=== PATIENT | female | born 1970 | race American Indian/Alaskan Native ===

== ENCOUNTER 2019-01-16 11:40 | Outpatient (REF) | payer SELFPAY ==
--- NOTE | 2019-01-16 10:45 | PAPFT_PTH ---
PATIENT: Swathi Patten LOC: [facility] U#:[id number] AGE/SX: 48/F ROOM: RE01/16/[address]: Bayron Jay : 1970 BED: DIS: 01/16/2019 SPEC #: [id number] RECD: 01/16/19 18:13 STATUS: KEYLA REQ #: [id number] CAL: 01/16/19 10:[address]: Bayron Jay DEPT: [facility] Cytology RECD BY: Keri Hernandez Tissues: 1 - CX/ENDOCX FOR PAP SMEARS Procedures: PAP THIN PREP/UVM Screening HPV DNA PROBE Comments: [id number] (CHLAMYDIA/GC)
[2019-01-17 13:43] LABS: Chlamydia Result Negative; GC Result Negative; Specimen Description SEE COMMENTS
== END 2019-01-16 12:00 ==
LOC: NCHCN 11:40
PROVIDERS: PCP Nurse Practitioner Family; Visit Provider Nurse Practitioner Family
DX: Z11.3 Encounter for screening for infections with a predominantly sexual mode of transmission (principal); Z12.4 Encounter for screening for malignant neoplasm of cervix; Z11.51 Encounter for screening for human papillomavirus (HPV); Z00.00 Encounter for general adult medical examination without abnormal findings
CPT/HCPCS: 87491; 87591; 88142; 87624

== ENCOUNTER 2019-06-01 17:31 | Emergency (ER) | payer SELFPAY ==
[2019-06-01 17:35] VITALS: BP 154/98; PULSE 93; RESP 18; TEMP 36.5; O2SAT 97
[2019-06-01 17:48] VITALS: BP 154/98; PULSE 93; RESP 18; TEMP 36.5; O2SAT 97
--- NOTE | 2019-06-03 23:47 | ED.GENADUL_ITS ---
Discharge Plan Disposition Patient Disposition: HOME Condition: Good Discharge Details Chief Complaint: EarProblem Clinical Impression: Ear pain Primary Care Provider: Bayron Jay ED Provider: Marion Dave Home Meds and New Rx's Prescriptions: New valacyclovir [Valtrex] 1 gram tablet 1,000 mg PO TID Qty: 21 RF: 0 meclizine 25 mg tablet 25 mg PO TID PRN (Reason: dizziness) Qty: 10 RF: 0 No Action lisinopril 5 MG tablet 20 mg PO DAILY RF: 0 atorvastatin [Lipitor] 10 mg Tablet 10 mg PO DAILY RF: 0 Discharge Instructions Instructions: Earache (ED) Additional Instructions: Drink plenty of fluids. Use antiviral medications as prescribed. Tylenol for soreness if needed. Prompt follow-up with your primary care doctor or ENT for reevaluation of concern of possible developing shingles as discussed. Use meclizine if needed if dizziness returns. Drink plenty of water with this medication will cause drowsiness. Have reevaluation if dizziness returns as discussed or for any difficulty walking. Rest activities as tolerated. Return for any worsening, concerns or alarming symptoms sooner if needed Discharge Data Discharge Date/Time-TO BE ENTERED AT DEPARTURE: 06/01/19 18:09 Medical Decision Making This is a 48-year-old patient presenting for concerns of right ear pain. Patient does report a history of shingles x2 once in her right eye once in her left ear. Patient reports in the last 24 hours onset of right ear pain which is been persistent somewhat constant associated with tingling of the scalp superior to the right ear. Patient denies any obvious rash at this time. Denies any hearing change. Denies any recent upper respiratory. Denies any ill feeling whatsoever. Patient is concerned as the sensation is somewhat similar to shingles she is previously experienced early on. On exam patient has no obvious abnormalities. Given patient's medical history and experience with shingles I do not feel is unreasonable to prescribe a prescription for Valtrex, encourage close follow-up and reevaluation of her ear. Patient agrees with plan of care. I did offer external ear antibiotic treatment but she declines at this time. I have encouraged patient to stop scratching her ear canal with her fingernails this could result wounds or infection of the ear. Patient reports her understanding. Conservative treatments discussed. Patient will schedule this plan of care. The patient was stable and requested discharge. Prior to discharge, my usual and customary return precautions were reviewed with the patient - this included follow-up instructions and reasons to return to the Emergency Department if conditions worsens, does not improve as expected, or other new concerns arise. HPI General Date/Time Provider Initiated Documentation: 06/01/19 17:37 . HPI Narrative: Patient presents for onset of right ear pain. Patient reports constant pain in the right ear. Patient reports onset of tingling in the right scalp above the right ear. Patient reports that she has a history of shingles and this feels somewhat similar. Patient denies any significant nasal congestion, sore throat or cough. Patient denies hearing change. Patient reports pain did wake her from sleep. Patient denies fevers or chills. No apparent rash at this time. Onset of symptoms in the last 24 hours. Patient denies any injury or trauma to her ear. No drainage from the ear. No ill feeling or malaise. Again patient is primarily concerned is developing shingles. She has had shingles in the right eye as well as another episode of the left ear. Related Data Home Medications Medication Instructions Recorded Confirmed lisinopril 20 mg PO DAILY 11/17/15 06/01/19 atorvastatin [Lipitor] 10 mg PO DAILY 06/01/19 06/01/19 meclizine 25 mg PO TID PRN #10 tab 06/01/19 valacyclovir [Valtrex] 1,000 mg PO TID #21 tab 06/01/19 Previous Rx's Medication Instructions Recorded meclizine 25 mg PO TID PRN #10 tab 06/01/19 valacyclovir [Valtrex] 1,000 mg PO TID #21 tab 06/01/19 Allergies Allergy/AdvReac Type Severity Reaction Status Date / Time cefazolin sodium [From [facility]] Allergy Severe Anaphylaxsi Verified 02/27/17 08:34 s hay fever Allergy Mild Uncoded 02/27/17 08:34 General Stated Complaint: EarProblem LISA: 4 Review of Systems All systems reviewed & are unremarkable except as noted in HPI and below Constitutional Constitutional: Denies chills, Denies fatigue, Denies fever(s), Denies headache(s) and Denies malaise Eyes Eyes: Denies blurry vision, Denies diplopia, Denies loss of peripheral vision, Denies loss of vision, Denies eye pain and Denies photophobia ENT Ears, Nose, Mouth, and Throat: Denies vertigo, Denies dizziness, Denies ear discharge, Reports otalgia, Denies headache(s), Denies nasal obstruction and Denies sore throat Respiratory Respiratory: Denies cough Neurologic Neurologic: Denies vertigo, Denies dizziness, Denies headache(s) and Denies loss of vision Endocrine Endocrine: Denies fatigue [facility] Social History Smoking/Tobacco Use Status: Current every day Alcohol Intake: never Drug use: Never Substance use type: does not use Do you feel safe at home: Yes Do you feel safe in your relationship?: Yes Exam Narrative Exam Narrative: CONST: Healthy appearing patient, in no acute distress. Well hydrated. Alert and oriented. HENMT: Head nomocephalic, normal to inspection. Atraumatic. Hearing grossly normal. TMs appear normal bilaterally. Very mild erythema to the distal inferior aspect of external canal, likely due to mechanical irritation as iron lemus has long fingernails and has been scratching the area. No drainage. No pain with tragal tug. No mastoid tenderness. EYES: General normal appearance. Alignment normal. Eyelids normal. Conjunctiva normal. NECK: Normal visual inspection. FROM. Trachea midline. No Midline tenderness. No cervical lymphadenopathy SKIN: Normal. Dry. No rashes. NEURO: Alert and awake. Speech clear. PSYCH: Normal affect. Cooperative. Course Vital Signs Vital signs: Vital Signs Temperature 36.5 C 06/01/19 17:35 Pulse 93 H 06/01/19 17:35 Respiratory Rate 18 06/01/19 17:35 Blood Pressure 154/98 H 06/01/19 17:35 Pulse Oximetry 97 06/01/19 17:35 Temperature 36.5 C 06/01/19 17:48 Temperature Source Temporal Artery Scan 06/01/19 17:35 Pulse 93 H 06/01/19 17:48 Respiratory Rate 18 06/01/19 17:48 Respiratory Effort Non-Labored 06/01/19 17:40 Blood Pressure 154/98 H 06/01/19 17:48 Blood Pressure Position Sitting 06/01/19 17:35 Pulse Oximetry 97 06/01/19 17:48 Oxygen Delivery Method Room Air 06/01/19 17:35 Oxygen Flow Rate 0 06/01/19 17:35 Pain Level 7 06/01/19 17:48
== END 2019-06-01 18:09 | disposition home or self-care (01) ==
PROVIDERS: Emergency Provider Physician Assistant; PCP Nurse Practitioner Family
DX: H92.01 Otalgia, right ear (principal); Z86.19 Personal history of other infectious and parasitic diseases
CPT/HCPCS: 99283

== ENCOUNTER 2019-06-06 07:06 | Outpatient (CLI) | payer SELFPAY ==
[2019-06-06 07:43] LABS: HCT 43.5 % (36.0-46.0); HGB 15.2 g/dL (12.0-15.5); Mean Corp. HGB Concentration 34.9 g/dL (32.0-36.0); Mean Corpuscular Hemoglobin 30.6 pg (27.0-33.0); Mean Corpuscular Volume 87.5 fL (80-95); Mean Platelet Volume 9.9 fL (8.0-11.0); Platelet Count 314 x1000/uL (130-400); RBC 4.97 m/cumm (4.00-5.20); RBC Distribution Width 12.3 % (11.7-14.6); White Blood Cell Count 11.25 k/cumm (4.4-10.8)
[2019-06-06 07:57] LABS: ALT 31 U/L (14-59); AST 13 U/L (15-37); Albumin 3.7 g/dL (3.4-5.0); Alkaline Phosphatase 75 U/L (46-116); Anion Gap 10.4 mmol/L (3-11); BUN 11 mg/dL (7-18); Bilirubin, Total 0.4 mg/dL (0.2-1.0); CO2 23.6 mmol/L (21.0-32.0); CREATININE 0.82 mg/dL (0.55-1.02); Calcium 8.8 mg/dL (8.5-10.1); Calculated LDL 133 mg/dL; Chloride 104 mmol/L (98-107); Cholesterol 207 mg/dL (<200); Glucose 127 mg/dL (74-106); HDL Cholesterol 34 mg/dL (40-60); Potassium 4.5 mmol/L (3.5-5.1); Sodium 138 mmol/L (136-145); Total Protein 7.2 g/dL (6.4-8.2); Triglyceride 202 mg/dL (<150)
== END 2019-06-06 07:26 ==
PROVIDERS: PCP Nurse Practitioner Family; Visit Provider Nurse Practitioner Family
DX: Z00.00 Encounter for general adult medical examination without abnormal findings (principal); I10 Essential (primary) hypertension; Z83.3 Family history of diabetes mellitus
CPT/HCPCS: 36415; 80053; 80061; 85027

== ENCOUNTER 2019-07-26 01:12 | Outpatient (CLI) | payer SELFPAY ==
--- NOTE | 2019-07-26 | DI.MAMMO_ITS ---
EXAM: MAMMO SCREENING CLINICAL HISTORY: SCREENING, [facility], Z00.00 TECHNIQUE: Mammograms were interpreted according to the usual protocol including computer analysis w [employer] CAD system, tomosynthesis and C-view imaging. COMPARISON: 2012 FINDINGS: The breasts are composed of scattered fibroglandular densities, Breast Density category B. No suspicious masses or suspicious microcalcifications are seen. No skin thickening or abnormal axillary lymph nodes are seen. There has been no significant change from prior exams. IMPRESSION: BIRADS Category 1, negative mammogram. Yearly screening mammography is recommended.
== END 2019-07-26 01:32 ==
PROVIDERS: PCP Nurse Practitioner Family; Visit Provider Nurse Practitioner Family
DX: Z12.31 Encounter for screening mammogram for malignant neoplasm of breast (principal)
CPT/HCPCS: 77063; 77067

== ENCOUNTER 2020-01-19 06:14 | Day surgery (SDC) | payer BC, SELFPAY ==
[2020-01-19 06:22] VITALS: BP 121/94; PULSE 83; RESP 16; TEMP 37.1; O2SAT 96
[2020-01-19] MEDS: Lactated Ringers 1,000 ML 80 ML IV (06:45)
--- NOTE | 2020-01-19 07:15 | HPE_ITS ---
Date of service: 01/19/20 Time of Service: 07:16 Assessment and Plan Assessment and plan (1) Colon cancer screening: Status: Acute Assessment and plan: I advised colonoscopy. The procedure was described including the risks of perforation with need for surgery or bleeding. Prep instructions discussed. Patient agrees to proceed. History of Present Illness Narrative: 49 y/o female with history of HTN presents for her first colonoscopy screening pre-op. She denies a family history of colon cancer. Of note she reports that both her brother and mother had polyps. She denies any changes in bowel habits including bloody or black tarry stools, abdominal pain, diarrhea or constipation. She denies constitutional symptoms. Denies use of marijuana or any other recreational or illegal drugs. She denies chest pain, palpitations, dyspnea or dyspnea with exertion. She occasionally walks her dog. 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 She denies prior history or family history of adverse reactions or complications with anesthesia. Review of Systems All systems reviewed & are unremarkable except as noted in HPI and below PFSH Medical History Alcohol abuse, in remission (Acute) in remission for 13 years Benign essential hypertension (Acute) Cocaine abuse in remission (Acute) in remission for 13 years Family history of chronic ischemic heart disease (Acute) Family history of diabetes mellitus (Acute) History of hepatitis (Acute) Hep C. pt. states she has been treated in 2004, states she did the Interferon treatment. Onychomycosis (Acute) Tobacco use disorder (Acute) Surgical History History of appendectomy (Chronic) Hx of section (Chronic) x2 Hx of cholecystectomy (Chronic) Social History Smoking/Tobacco Use Status: Current every day Tobacco Type: cigarettes Quit status: quit date established Alcohol Intake: former Drug use: Current Sobriety Substance use type: former substance user and crack/cocaine Details: 13 years Do you feel safe at home: Yes Do you feel safe in your relationship?: Yes Meds Home Medications and Allergies Home Medications Medication Instructions Recorded Confirmed Type meclizine 25 mg PO TID PRN #10 tab 06/01/19 01/19/20 Rx albuterol sulfate 90 mcg/actuation 2 puff IH Q6H PRN 06/27/19 01/19/20 History aerosol inhaler lisinopril 20 mg tablet 20 mg PO DAILY 06/27/19 01/19/20 History simvastatin 20 mg tablet 20 mg PO DAILY 06/27/19 01/19/20 History varenicline 1 mg tablet 1 mg PO BID 06/27/19 01/19/20 History bisacodyl 5 mg tablet,delayed 5 mg PO ONCE #4 tab 08/03/19 01/19/20 Rx release nicotine 14 mg/24 hr daily 1 patch TD DAILY 08/03/19 01/19/20 History transdermal patch polyethylene glycol 3350 17 238 g PO ONCE #238 gm 08/03/19 01/19/20 Rx gram/dose oral powder Allergies Allergy/AdvReac Type Severity Reaction Status Date / Time cefazolin sodium [From [facility]] Allergy Severe Anaphylaxsi Verified 01/16/20 14:10 s codeine Allergy Unknown unknown Verified 01/16/20 14:10 hay fever Allergy Mild Uncoded 01/16/20 14:10 Exam Narrative Exam Narrative: Alert, appears well Lungs CTA Heart RRR Results Last Vital Signs Temp 98.8 F 01/19/20 06:22 Pulse 83 01/19/20 06:22 Resp 16 01/19/20 06:22 BP 121/94 H 01/19/20 06:22 Pulse Ox 96 01/19/20 06:22 COVID-19 Screening Have you,or household,traveled outside [place] in last 14 days?: No Had IN PERSON contact w/suspected or confirmed C-19 person: No
--- NOTE | 2020-01-19 07:19 | W.PM.DSUDISC ---
Discharge Plan Disposition Patient Disposition: HOME Condition: Good Discharge Details Reason For Visit: Colonoscopy Attending Provider: Gabrielle Chakraborty Primary Care Provider: Bayron Jay Home Meds and New Rx's Prescriptions: Continued nicotine 14 mg/24 hr patch 24 hour 1 patch TD DAILY RF: 0 Chantix 1 mg tablet 1 mg PO BID RF: 0 simvastatin 20 mg tablet 20 mg PO DAILY RF: 0 albuterol sulfate [ProAir HFA] 90 mcg/actuation HFA aerosol inhaler 2 puff IH Q6H PRNRF: 0 lisinopril 20 mg tablet 20 mg PO DAILY RF: 0 meclizine 25 mg tablet 25 mg PO TID PRN (Reason: dizziness) Qty: 10 RF: 0 Discontinued polyethylene glycol 3350 17 gram/dose powder 238 g PO ONCE Qty: 238 RF: 0 bisacodyl [Dulcolax (bisacodyl)] 5 mg tablet,delayed release (DR/EC) 5 mg PO ONCE Qty: 4 RF: 0 Discharge Instructions Additional Instructions: Findings: Your colonoscopy was normal. Follow up: Plan for routine screening colonoscopy in 10 years or sooner if symptoms arise. Please call if you develop: fevers >101.5 Nausea or Vomiting Abdominal pain that is not transient DAY SURGERY UNIT POST COLONOSCOPY INSTRUCTIONS 1. Because there will be medication in your system for the next 24 hours, you may feel a little sleepy. Your coordination will be affected. Therefore: a. Do not drive or operate dangerous equipment for 24 hours. b. Do not drink alcohol beverages for 24 hours (not even beer). c. Plan to go home and rest for the day. 2. Generally there are no restrictions on your activity after a day or so has gone by, but you may feel a bit fatigued for a few days. 3 After you arrive home you may have a light meal and return to a normal diet as you can tolerate it without feeling sick to your stomach. 4. After surgery, you may feel pain or discomfort. This should be only transient, but if it persists please contact your doctor. 5. If there are any questions regarding the findings of your procedure, please feel free to contact your doctor. 6. If you are unable to contact your doctor with a problem, contact the hospital at [phone]. 7. Continue all your regular medications unless directed otherwise. I understand the above instructions and have no questions. Signature of Patient or Responsible Adult Escort Date/Time Name of Responsible Adult Escort Signature of Nurse Date/Time Activity:: Activity as Tolerated Diet:: As Tolerated Discharge Orders Discharge Orders: Discharge Order (Routine); Ordered 01/19/20 Ordered By: Gabrielle Chakraborty DS: Diagnosis Discharge Diagnosis (1) Colon cancer screening: Status: Acute
--- NOTE | 2020-01-19 07:59 | W.COLOREPORT ---
Date of service: 01/19/20 Time of Service: 07:59 Colonoscopy Report Date of procedure: 01/19/20 Pre-op diagnosis general: Screening Post-op diagnosis procedure note: other (Normal colon) Procedure: Colonoscopy Surgeon: Gabrielle Chakraborty Anesthesia proc note operative: MAC Indications: This 49 year old woman presents for her first screening colonoscopy. No FH colon cancer or symptoms. Procedure Description: The patient was placed in the left Babin position. Propofol was titrated to sedation. Digital rectal examination revealed no abnormalities. The scope was advanced to the cecum without difficulty. The ileocecal valve and appendiceal orifice were clearly identified. The prep was good. The scope was slowly withdrawn over the course of greater than 6 minutes with no abnormalities seen in the ascending, transverse, descending, sigmoid colon or rectum including on retroflexed view. The patient tolerated the procedure well and was stable to recovery. Plan for routine screening colonoscopy in 10 years or sooner if symptoms indicate.
[2020-01-19 08:19] VITALS: BP 106/46; PULSE 71; RESP 16; TEMP 36.1; O2SAT 97
== END 2020-01-19 08:45 | disposition home or self-care (01) ==
PROVIDERS: PCP Nurse Practitioner Family; Visit Provider Surgery
PROC: 0DJD8ZZ Inspection of Lower Intestinal Tract, Via Natural or Artificial Opening Endoscopic (ICD-10-PCS; CPT 45378; principal; 2020-01-19 07:30)
DX: Z12.11 Encounter for screening for malignant neoplasm of colon (principal)
CPT/HCPCS: 45378; NC

== ENCOUNTER 2021-02-04 16:13 | Outpatient (REF) | payer BC, SELFPAY ==
[2021-02-04 20:10] LABS: HCT 41.5 % (36.0-46.0); HGB 14.3 g/dL (11.2-15.7); MCH 29.6 pg (27.0-33.0); MCHC 34.5 % (32.0-36.0); MCV 85.9 fL (80-95); MPV 10.3 fL (8.0-11.0); Platelet Count 339 10^3/uL (130-400); RBC 4.83 10^6/uL (3.93-5.22); RDW 11.8 % (11.7-14.6); RDW-SD 37.1 fL
[2021-02-04 21:06] LABS: ALT 45 U/L (14-59); AST 23 U/L (15-37); Albumin 3.9 g/dL (3.4-5.0); Alkaline Phosphatase 84 U/L (46-116); Anion Gap 8.3 mmol/L (3-11); BUN 10 mg/dL (7-18); Bilirubin, Total 0.3 mg/dL (0.2-1.0); CO2 27.7 mmol/L (21.0-32.0); CREATININE 0.6 mg/dL (0.55-1.02); Calcium 9.3 mg/dL (8.5-10.1); Chloride 102 mmol/L (98-107); Glucose 93 mg/dL (74-106); Sodium 138 mmol/L (136-145); TSH 0.76 uIU/mL (0.36-3.74)
== END 2021-02-04 16:14 | disposition home or self-care (01) ==
LOC: NCHCN 16:13
PROVIDERS: PCP Nurse Practitioner Family; Visit Provider Physician Assistant
DX: I10 Essential (primary) hypertension (principal); E78.5 Hyperlipidemia, unspecified
CPT/HCPCS: 80053; 85027; 84439; 84443

== ENCOUNTER → 2021-02-17 01:21 | Outpatient (CLI) | payer BC, SELFPAY ==
--- NOTE | 2021-02-17 | DI.MRI_ITS ---
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 Both noninfused and contrast i nfused sequences were performed. IV Contrast injected was cc Dotarem. COMPARISON: MR BRAIN ORBIT FACE NECK WO,W from 02/23/2017 MR BRAIN ORBIT FACE NECK WO,W from 02/23/2017 FINDINGS: CEREBRAL PARENCHYMA: No evidence of intracranial hemorrhage, new mass effect nor shift of midline str ucture. No extraaxial fluid collections. Ventricles are not enlarged nor shifted. There is no significant focal signal abnormality in the cerebellar hemispheres nor within the joon, m idbrain, and thalami. On FLAIR imaging there are again noted 2 foci of white matter signal abnormality, similar to Septembe r 2017. However on the present study there is an additional new similar appearing 5 x 4 millimeter f ocus of signal abnormality in the subcortical white matter of the left frontal parietal region, also not associated with surrounding edema, hemorrhage, nor enhancement. Indeed, there is no enhancement in all 3 similar-appearing white matter findings. There are no ring enhancing lesions in the brain. There is no abnormal meningeal enhancement. There is no evidence of restricted diffusion on DWI sequence INTERNAL AUDITORY CANALS: There is no evidence of mass in the cerebellopontine angles.. There is no evidence of intra canalicular mass within the internal auditory canals to suggest acoustic neuroma-sc hwannoma. Seventh and 8th cranial nerves appear unremarkable. TRIGEMINAL NERVES: There is no evidence of mass in nor adjacent to the joon at the level of the trige jericho nerve(s) exit points nor within their extra-axial course towards Meckel's cave(s). Also no aneu rysms at these levels. No obvious prominent vascular loops. PITUITARY GLAND: No mass nor parasellar abnormality. No obvious abnormality in the cavernous sinuses. FLOW VOIDS: The expected flow void are noted. No evidence of obvious aneurysm nor obvious vascular ma lformation. PARANASAL SINUSES: The visualized paranasal sinuses appear unremarkable. ORBITS: No obvious abnormal findings. IMPRESSION: 1. No evidence of mass in the cerebellopontine angles nor within the internal auditory canals. 2. No evidence of mass in nor around the trigeminal nerves, given the history here. Also no aneurysms nor prominent vascular loops adjacent to the trigeminal nerves. 3. Two previously present small foci of FLAIR bright nonenhancing white matter signal abnormality are unchanged from 2017. In addition, there is an additional similar appearing 5 x 4 millimeter focus of signal abnormality in the subcortical left frontal parietal region, probably similar etiology and al so nonenhancing and nonhemorrhagic. Somewhat nonspecific but correlation any history of demyelinating disease recommended. DATA REPOSITORY:
--- NOTE | 2021-02-17 | DI.MAMMO_ITS ---
Exam(s) MAMMO SCREENING EXAM: MAMMO SCREENING CLINICAL HISTORY: SCREENING, Z12.31. TECHNIQUE: Bilateral full field digital CC and MLO mammographic images were obtained with 3D tomosyn thesis and utilizing computer aided detection (CAD). COMPARISON: Prior mammograms dating back to 2012, the most recent being July 2019. FINDINGS: There are no CAD designations. There are no new spiculated masses nor malignant appearing microcalcification groups. Benign lymph nodes are noted in both axillary tails. There is no significant architectural distortion nor skin thickening-retraction. IMPRESSION: Stable benign findings. No radiographic evidence of malignancy. BI-RADS Category 2 - Benign Findings Breast Density - Category B - Scattered areas of fibroglandular density Breast density Category C or D implies that the patient has dense breast tissue. Dense breast tissue can make it harder to find cancer on a mammogram. Dense breast tissue is also associated with an incr eased risk of breast cancer. This information about the result of the mammogram report was provided to the patient to raise their awareness. Use this report when you speak with the patient about their risks for breast cancer, which includes their family history. At that time, you may recommend additional screening tests (Ultrasoun d or MRI) as these tests may add significant information. A negative radiographic report should not delay biopsy if a dominant or clinically suspicious mass is present. Up to ten percent of cancers are not identified on mammography. A negative report may reinforce clinical impression. Adenosis and dense breasts may obscure an underlying neoplasm. False positive reports average 6 to 10%. Patient will receive a letter notifying them of these results.
[2021-02-17] MEDS: Normal Saline Flush 10 ML SYR IVP (10:23)
[2021-02-17] MEDS: Gadoterate meglumine 20 ML VIAL 17 ML IVP (10:24)
== END ==
PROVIDERS: PCP Physician Assistant; Visit Provider Physician Assistant
DX: Z12.31 Encounter for screening mammogram for malignant neoplasm of breast (principal); G50.0 Trigeminal neuralgia
CPT/HCPCS: 70553; 77063; 77067

== ENCOUNTER 2021-04-21 08:21 | Outpatient (REF) | payer BC, SELFPAY ==
[2021-04-21 15:47] LABS: Calculated LDL 138 mg/dL (<100); Cholesterol 209 mg/dL (<200); HDL Cholesterol 44 mg/dL (40-60); Triglyceride 135 mg/dL (<150)
== END 2021-04-21 08:22 | disposition home or self-care (01) ==
LOC: NCHCN 08:21
PROVIDERS: PCP Physician Assistant; Visit Provider Physician Assistant
DX: E78.5 Hyperlipidemia, unspecified (principal)
CPT/HCPCS: 80061

== ENCOUNTER 2021-12-09 20:41 | Outpatient (REF) | payer BC, SELFPAY ==
[2021-12-11 10:54] LABS: COVID-19 RT-PCR UVMMC Result Negative (Negative)
== END 2021-12-09 20:42 | disposition home or self-care (01) ==
LOC: LBN 20:41
PROVIDERS: PCP Physician Assistant; Visit Provider Family Medicine
DX: Z20.822 Contact with and (suspected) exposure to COVID-19 (principal); J06.9 Acute upper respiratory infection, unspecified
CPT/HCPCS: U0003

== ENCOUNTER → 2022-02-18 01:20 | Outpatient (CLI) | payer BC, SELFPAY ==
--- NOTE | 2022-02-18 11:57 | DI.MAMMO_ITS ---
Exam(s) MAMMO SCREENING EXAM: MAMMO SCREENING CLINICAL HISTORY: SCREENING MAMMO FOR BREAST CANCER Z12.39. TECHNIQUE: Bilateral full field digital CC and MLO mammographic images were obtained with 3D tomosyn thesis and utilizing computer aided detection (CAD). COMPARISON: Prior mammograms were reviewed, the most recent being January 2021. FINDINGS: There has been no significant change in the appearance and distribution of the fibroglandular tissue. There are no new spiculated masses nor malignant appearing microcalcification groups. There is no significant architectural distortion nor skin thickening-retraction. IMPRESSION: No radiographic evidence of malignancy. BI-RADS Category 1 - Negative Breast Density - Category B - Scattered areas of fibroglandular density Breast density Category C or D implies that the patient has dense breast tissue. Dense breast tissue can make it harder to find cancer on a mammogram. Dense breast tissue is also associated with an incr eased risk of breast cancer. This information about the result of the mammogram report was provided to the patient to raise their awareness. Use this report when you speak with the patient about their risks for breast cancer, which includes their family history. At that time, you may recommend additional screening tests (Ultrasoun d or MRI) as these tests may add significant information. A negative radiographic report should not delay biopsy if a dominant or clinically suspicious mass is present. Up to ten percent of cancers are not identified on mammography. A negative report may reinforce clinical impression. Adenosis and dense breasts may obscure an underlying neoplasm. False positive reports average 6 to 10%. Patient will receive a letter notifying them of these results.
== END ==
PROVIDERS: PCP Physician Assistant; Visit Provider Physician Assistant
DX: Z12.31 Encounter for screening mammogram for malignant neoplasm of breast (principal)
CPT/HCPCS: 77063; 77067

== ENCOUNTER 2022-02-23 10:01 | Emergency (ER) | payer BC, SELFPAY ==
[2022-02-23 10:05] VITALS: BP 198/98; PULSE 64; RESP 18; TEMP 36.7; O2SAT 100
--- NOTE | 2022-02-23 11:20 | W.ED.GENAD ---
Discharge Plan Disposition Patient Disposition: HOME Condition: Stable Discharge Details Clinical Impression: Right trigeminal neuralgia Primary Care Provider: Raffi Nolasco ED Provider: Sintia Barbosa Home Meds and New Rx's Prescriptions: New duloxetine [Cymbalta] 30 mg capsule,delayed release(DR/EC) 30 mg PO DAILY Qty: 30 0RF Continued nicotine 14 mg/24 hr patch 24 hour 1 patch TD DAILY PRN Rx Instructions: Oxcarbazepine scheduled dosinmg in AM. 300mg at noon. 600mg in the evening. varenicline [Chantix] 1 mg tablet 1 mg PO BID simvastatin 20 mg tablet 20 mg PO DAILY albuterol sulfate [ProAir HFA] 90 mcg/actuation HFA aerosol inhaler 2 puff IH Q6H PRN lisinopril 20 mg tablet 20 mg PO DAILY clonazepam 0.5 mg tablet 0.5 mg PO DAILY amlodipine 10 mg tablet 10 mg PO DAILY oxybutynin chloride 5 mg tablet 5 mg PO DAILY sertraline 100 mg tablet 100 mg PO DAILY sumatriptan succinate [Imitrex] 100 mg tablet 100 mg PO ONCE PRN oxcarbazepine 150 mg tablet 300 mg PO DAILY Rx Instructions: Daily at noon metoprolol tartrate 50 mg tablet 50 mg PO BID gabapentin 300 mg capsule 600 mg PO TID oxcarbazepine 300 mg tablet 600 mg PO BID Discharge Instructions Instructions: Duloxetine (By mouth), Trigeminal Neuralgia (ED) Additional Instructions: Please return immediately to the emergency department if you develop any new or worsening symptoms, if your condition does not improve as expected, or if you become otherwise concerned. It is extremely important that you call soon as possible to make an appointment to be seen in follow-up for this visit by your primary care doctor. It is very important that you attend your appointment with Dr. Cho of neurology as scheduled. Referrals: Raffi Nolasco [Primary Care Provider] - Amirah Cho MD [ [facility] STAFF PHYSICIAN] - Discharge Data Discharge Date/Time-TO BE ENTERED AT DEPARTURE: 02/23/22 12:59 Medical Decision Making Concern for pain from trigeminal neuralgia neuralgia, other. Exam/history at this time is not consistent with cellulitis, abscess, glaucoma, temporal arteritis, meningitis, impending airway compromise, other acute emergent process. I discussed patient with Dr. Cho of neurology, who recommended duloxetine 30 mg daily be added to patient's regimen, patient has appointment with Dr. Cho scheduled. She notes that patient may need outpatient MRI/surgery for refractory trigeminal neuralgia, no further acute interventions recommended at this time. I had a discussion with Patient regarding return to emergency department precautions, home care, and importance of outpatient follow-up. Pt verbalizes understanding of the plan and is amenable. Patient discharged to home with clear plan for outpatient follow-up. All questions were answered. Disposition decision was made weighing the risks and benefits of hospitalization versus outpatient treatment, the risk for further decompensation, and the patient's wishes. Medical Records Medical records reviewed: Yes I reviewed the patient's medical records. HPI General Mode of arrival: ambulatory. Date/Time Provider Initiated Documentation: 02/23/22 10:26. Limitations to Documentation: no limitations. Information obtained by: patient, RN notes reviewed and old records reviewed. HPI Narrative: Swathi Patten is a 51 y/o woman with history of hypertension, hyperlipidemia, trigeminal neuralgia presenting to the emergency department with worsening facial pain. Patient reports that she has shingles in the past, and developed trigeminal neuralgia that she believes is secondary to having shingles (she reports that same distribution). Patient reports that she was initially treated for her trigeminal neuralgia with oxcarbazepine, which treated her pain successfully for approximately 1 year. Patient reports that in October 2021 medication seemed less effective, and her dosage of oxcarbazepine has been being increased. Patient reports that despite increasing dosage she has continued to have pain. Approximately 3 weeks ago patient was started on gabapentin in addition to the oxcarbazepine. Patient reports that this alleviated her pain for 2 weeks. Patient reports that for the past week she has been having severe pain. Patient reports that this is the same type of pain that she has been experiencing since the onset of her trigeminal neuralgia. She reports intermittent electrical sensations in the right side of her face, burning of the skin of her right cheek and in her right gums. She reports that pain occurs in the area of her right face between the lower aspect of her eye and her right jaw. She denies any left-sided facial pain, any other pain, vision changes, fever, cough, shortness of breath, vomiting, diarrhea, numbness, weakness, skin rash. Patient reports that her current dose of oxcarbazepine is 600mg BID, and gabapentin dose is 600mg TID. Related Data Home Medications Medication Instructions Recorded Confirmed albuterol sulfate 90 mcg/actuation 2 puff inhalation Q6H PRN 06/27/19 02/23/22 aerosol inhaler (ProAir HFA) lisinopril 20 mg tablet 20 mg PO DAILY 06/27/19 02/23/22 simvastatin 20 mg tablet 20 mg PO DAILY 06/27/19 02/23/22 varenicline 1 mg tablet (Chantix) 1 mg PO BID 06/27/19 02/23/22 nicotine 14 mg/24 hr daily 1 patch transdermal DAILY PRN 08/03/19 01/19/20 transdermal patch amlodipine 10 mg tablet 10 mg PO DAILY 02/04/22 02/23/22 clonazepam 0.5 mg tablet 0.5 mg PO DAILY 02/04/22 02/23/22 gabapentin 300 mg capsule 600 mg PO TID 02/04/22 02/23/22 metoprolol tartrate 50 mg tablet 50 mg PO BID 02/04/22 oxcarbazepine 150 mg tablet 300 mg PO DAILY 02/04/22 oxcarbazepine 300 mg tablet 600 mg PO BID 02/04/22 02/23/22 oxybutynin chloride 5 mg tablet 5 mg PO DAILY 02/04/22 02/23/22 sertraline 100 mg tablet 100 mg PO DAILY 02/04/22 02/23/22 sumatriptan succinate 100 mg 100 mg PO ONCE PRN 02/04/22 02/23/22 tablet (Imitrex) duloxetine 30 mg capsule,delayed 30 mg PO DAILY #30 caps 02/23/22 release (Cymbalta) Previous Rx's Medication Instructions Recorded duloxetine 30 mg capsule,delayed 30 mg PO DAILY #30 caps 02/23/22 release (Cymbalta) Allergies Allergy/AdvReac Type Severity Reaction Status Date / Time cefazolin sodium [From [facility]] Allergy Severe Anaphylaxsi Verified 02/23/22 10:09 s codeine Allergy Unknown unknown Verified 02/23/22 10:09 hay fever Allergy Mild Uncoded 02/23/22 10:09 General Stated Complaint: GenMedical LISA: 3 Review of Systems Narrative: Constitutional: denies fevers Eyes: denies eye pain, vision changes, discharge from eye ENT: denies ear pain, dental pain, sore throat, reports right-sided facial pain as per HPI Cardiovascular: denies chest pain Respiratory: denies SOB, cough GI: denies abdominal pain, vomiting, diarrhea : denies flank pain MSK: denies back pain, neck pain, arthralgias, myalgias Skin: denies rash Neuro: denies headaches, numbness, weakness PFSH All Active Problems (Updated 02/23/22 @ 12:33 by Sintia Barbosa MD) Right trigeminal neuralgia (Acute) Colon cancer screening (Acute) Medical History (Updated 02/23/22 @ 12:33 by Sintia Barbosa MD) 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 pt. states she has been treated in 2004, states she did the Interferon treatment. Hyperlipidemia Hypertension Liver disease Onychomycosis Primary hypertension Tobacco use disorder Trigeminal neuralgia Urge incontinence Viral meningitis Surgical History (Updated 02/09/22 @ 12:25 by Olivia Ashley) H/O tubal ligation History of appendectomy Hx of section x2 Hx of cholecystectomy Normal colonoscopy (~12/2019) Family History (Updated 02/04/22 @ 16:01 by Marta Sinclair) Mother Diabetes Emphysema lung Father Heart disease Coronary artery disease Sister Heart disease Social History Smoking/Tobacco Use Status: Current every day Tobacco Type: cigarettes Quit status: quit date established Smoking risk assessment performed?: Yes Alcohol Intake: former Drug use: Current Sobriety Substance use type: former substance user and crack/cocaine Details: 13 years Do you feel safe at home: Yes Do you feel safe in your relationship?: Yes Exam Narrative Exam Narrative: Constitutional: well and [id number], pleasant, conversing normally HENT: head atraumatic/normocephalic/normal inspection, mucous membranes moist, right face with generalized tenderness to palpation, no crepitus, no edema, no focal point tenderness, no trismus, no intraoral lesion, normal voice, no drooling, no pooling of secretions Eyes: conjunctiva normal, sclera normal, pupils 3mm b/l Neck: no stridor, full painless ROM, trachea midline Resp: normal work of breathing, speaking in full sentences Cardio: normal rate, normal rhythm Skin: warm, dry, normal color, no rash Neuro: alert, not altered, grossly non-focal, normal tone Ext: Moving all extremities equally Psych: normal mood, normal affect, normal behavior Course Vital Signs Vital signs: Vital Signs Temperature 36.7 C 02/23/22 10:05 Pulse 64 02/23/22 10:05 Respiratory Rate 18 02/23/22 10:05 Blood Pressure 198/98 H 02/23/22 10:05 Pulse Oximetry 100 02/23/22 10:05 Temperature 36.7 C 02/23/22 10:05 Temperature Source Temporal Artery Scan 02/23/22 10:05 Pulse 64 02/23/22 10:05 Respiratory Rate 18 02/23/22 10:05 Respiratory Effort Non-Labored 02/23/22 10:17 Respiratory Depth Normal 02/23/22 10:17 Respiratory Pattern Normal 02/23/22 10:17 Blood Pressure 198/98 H 02/23/22 10:05 Blood Pressure Position Sitting 02/23/22 10:05 Pulse Oximetry 100 02/23/22 10:05 Oxygen Delivery Method Room Air 02/23/22 10:05 Oxygen Flow Rate 0 02/23/22 10:05
== END 2022-02-23 12:59 | disposition home or self-care (01) ==
PROVIDERS: Emergency Provider Student in an Organized Health Care Education/Training Program; PCP Physician Assistant
DX: G50.0 Trigeminal neuralgia (principal); I10 Essential (primary) hypertension; F17.210 Nicotine dependence, cigarettes, uncomplicated
CPT/HCPCS: 99283; 99281

== ENCOUNTER 2023-10-01 08:56 | Outpatient (CLI) | payer MEDICAID, SELFPAY ==
[2023-10-01 09:29] LABS: HCT 47.5 % (36.0-46.0); HGB 16.1 g/dL (11.2-15.7); MCH 30.2 pg (27.0-33.0); MCHC 33.9 % (32.0-36.0); MCV 89 fL (80-95); MPV 9.9 fL (8.0-11.0); Platelet Count 260 10^3/uL (130-400); RBC 5.33 10^6/uL (3.93-5.22); RDW 12.5 % (11.7-14.6); RDW-SD 40.8 fL; WBC 10.37 10^3/uL (4.4-10.8)
[2023-10-01 10:03] LABS: ALT 30 U/L (14-59); AST 14 U/L (15-37); Albumin 4.1 g/dL (3.4-5.0); Alkaline Phosphatase 125 U/L (46-116); Anion Gap 13.1 mmol/L (3-11); BUN 14 mg/dL (7-18); Bilirubin, Total 0.5 mg/dL (0.2-1.0); CO2 24.9 mmol/L (21.0-32.0); Calcium 9.3 mg/dL (8.5-10.1); Calculated LDL 121 mg/dL (<100); Chloride 104 mmol/L (98-107); Cholesterol 200 mg/dL (<200); Estimated GFR 66.95 (mL/min/1.73m2); Glucose 131 mg/dL (74-106); HDL Cholesterol 45 mg/dL (40-60); Potassium 4.5 mmol/L (3.5-5.1); Sodium 142 mmol/L (136-145); Total Protein 7.8 g/dL (6.4-8.2); Triglyceride 170 mg/dL (<150)
== END 2023-10-01 08:57 | disposition home or self-care (01) ==
LOC: LBO 08:56
PROVIDERS: PCP Physician Assistant; Visit Provider Psychiatry & Neurology Neurology
DX: E78.5 Hyperlipidemia, unspecified (principal); I10 Essential (primary) hypertension
CPT/HCPCS: 36415; 80053; 80061; 85027

== ENCOUNTER 2023-11-01 06:53 | Emergency (ER) | payer MEDICAID, SELFPAY ==
[2023-11-01 06:56] VITALS: BP 217/113; PULSE 66; RESP 14; TEMP 36.4; O2SAT 99
[2023-11-01 07:01] VITALS: BP 217/113; PULSE 66; RESP 14; TEMP 36.4; O2SAT 99
--- NOTE | 2023-11-01 07:25 | W.ED.GENAD ---
Discharge Plan Disposition Patient Disposition: Home Discharge Details Clinical Impression: Trigeminal neuralgia pain Primary Care Provider: Raffi Nolasco ED Provider: Sidney Lugo Home Meds and New Rx's Prescriptions: New oxcarbazepine 600 mg tablet 600 mg PO BID 30 Days Qty: 60 0RF Continued pregabalin 150 mg capsule 150 mg PO BID Qty: 60 5RF nicotine 14 mg/24 hr patch 24 hour 1 patch TD DAILY PRN Rx Instructions: Oxcarbazepine scheduled dosinmg in AM. 300mg at noon. 600mg in the evening. varenicline [Chantix] 1 mg tablet 1 mg PO BID simvastatin 20 mg tablet 20 mg PO DAILY albuterol sulfate [ProAir HFA] 90 mcg/actuation HFA aerosol inhaler 2 puff IH Q6H PRN lisinopril 20 mg tablet 20 mg PO DAILY amlodipine 10 mg tablet 10 mg PO DAILY oxybutynin chloride 5 mg tablet 5 mg PO DAILY sertraline 100 mg tablet 100 mg PO DAILY sumatriptan succinate [Imitrex] 100 mg tablet 100 mg PO ONCE PRN metoprolol tartrate 50 mg tablet 50 mg PO BID clonazepam 0.5 mg tablet 0.5 mg PO DAILY PRN buspirone 5 mg tablet 5 mg PO BID PRN Patient Comments: TAKE 1 TABLET BY MOUTH TWICE DAILY gabapentin 300 mg capsule 300 mg PO TID Patient Comments: TAKE 3 CAPSULES BY MOUTH THREE TIMES DAILY nortriptyline 10 mg capsule 10 mg PO HS Patient Comments: TAKE 1 CAPSULE BY MOUTH EVERY DAY AT BEDTIME Incruse Ellipta 62.5 mcg/actuation blister with device 1 inh INHALATION DAILY Patient Comments: INHALE 1 PUFF BY MOUTH EVERY DAY Discontinued oxcarbazepine 150 mg tablet 300 mg PO DAILY Patient Comments: takes at am Rx Instructions: Daily at noon oxcarbazepine 300 mg tablet 600 mg PO HS Discharge Instructions Instructions: Trigeminal Neuralgia (ED) Additional Instructions: You were seen in the emergency department for right-sided facial pain. This likely represents worsening trigeminal neuralgia. We gave you some medications here in the emergency department with some improvement in your symptoms. We agreed to increase your oxcarbazepine dosing. You should start taking oxcarbazepine 600 mg twice a day. You should follow-up with your primary care doctor within 1 to 2 weeks to recheck your liver function tests and oxcarbazepine levels. If you have worsening symptoms you should return straight back to the emergency department. Otherwise follow-up with your primary care doctor and neurologist. Referrals: Raffi Nolasco [Primary Care Provider] - 1 week HPI General Date/Time Provider Initiated Documentation: 11/01/23 07:00. HPI Narrative: This is a 53-year-old female history of trigeminal neuralgia who is presenting with right-sided facial pain. She said she has been dealing with trigeminal neuralgia for years and says this feels the same. Says she actually got a surgery for it at [facility] in July 2022. She had been doing well but over the last 3 to 4 months her trigeminal neuralgia has returned. She has followed up with her previous surgeon and her neurologist at [facility]. Says that she is on maximal dose gabapentin, oxcarbazepine, and amitriptyline to help with her symptoms. She has the right-sided facial pain but denies any other neurologic symptoms. No headache. No vision changes. No changes in her hearing or ear pain. No fevers or chills. She denies any other complaints. Related Data Home Medications Medication Instructions Recorded Confirmed albuterol sulfate 90 mcg/actuation 2 puff inhalation Q6H PRN 06/27/19 11/01/23 aerosol inhaler (ProAir HFA) lisinopril 20 mg tablet 20 mg PO DAILY 06/27/19 11/01/23 simvastatin 20 mg tablet 20 mg PO DAILY 06/27/19 11/01/23 varenicline 1 mg tablet (Chantix) 1 mg PO BID 06/27/19 11/01/23 nicotine 14 mg/24 hr daily 1 patch transdermal DAILY PRN 08/03/19 11/01/23 transdermal patch amlodipine 10 mg tablet 10 mg PO DAILY 02/04/22 11/01/23 metoprolol tartrate 50 mg tablet 50 mg PO BID 02/04/22 11/01/23 oxybutynin chloride 5 mg tablet 5 mg PO DAILY 02/04/22 11/01/23 sertraline 100 mg tablet 100 mg PO DAILY 02/04/22 11/01/23 sumatriptan succinate 100 mg 100 mg PO ONCE PRN 02/04/22 11/01/23 tablet (Imitrex) clonazepam 0.5 mg tablet 0.5 mg PO DAILY PRN 04/15/22 11/01/23 pregabalin 150 mg capsule 150 mg PO BID #60 caps 04/15/22 11/01/23 buspirone 5 mg tablet 5 mg PO BID PRN 11/01/23 11/01/23 gabapentin 300 mg capsule 300 mg PO TID 11/01/23 11/01/23 nortriptyline 10 mg capsule 10 mg PO HS 11/01/23 11/01/23 oxcarbazepine 600 mg tablet 600 mg PO BID 30 days #60 tabs 11/01/23 umeclidinium 62.5 mcg/actuation 1 inh inhalation DAILY 11/01/23 11/01/23 blister powder for inhalation (Incruse Ellipta) Previous Rx's Medication Instructions Recorded pregabalin 150 mg capsule 150 mg PO BID #60 caps 04/15/22 oxcarbazepine 600 mg tablet 600 mg PO BID 30 days #60 tabs 11/01/23 Allergies Allergy/AdvReac Type Severity Reaction Status Date / Time cefazolin sodium [From [facility]] Allergy Severe Anaphylaxsi Verified 11/01/23 07:02 s codeine Allergy Unknown unknown Verified 11/01/23 07:02 hay fever Allergy Mild Other (See Uncoded 11/01/23 07:02 Comment) General Stated Complaint: FacialProb LISA: 3 Review of Systems Constitutional Constitutional: Denies chills, Denies fever(s) and Denies headache(s) Eyes Eyes: Denies change in vision ENT Ears, Nose, Mouth, and Throat: Denies headache(s) and Denies odynophagia Comments: Endorsing right-sided face pain that is sharp in nature Cardiovascular Cardiovascular: Denies chest pain and Denies dyspnea Respiratory Respiratory: Denies dyspnea Gastrointestinal Gastrointestinal: Denies abdominal pain, Denies diarrhea, Denies nausea, Denies odynophagia and Denies vomiting Genitourinary Genitourinary: Denies dysuria Musculoskeletal Musculoskeletal: Denies myalgias Integumentary/Breasts Skin/Breast: Denies changing lesions Neurologic Neurologic: Denies behavioral changes and Denies headache(s) Psychiatric Psychiatric: Denies behavioral changes Endocrine Endocrine: Denies heat intolerance Hematologic/Lymphatic Hematologic/Lymphatic: Denies lymphadenopathy Exam Const General: cooperative Nutritional Appearance: average body habitus Orientation: alert, awake and oriented x3 HENMT Head: normal to inspection Ears: external ears normal Mouth: moist mucous membranes Eyes Pupils: PERRL EOM: EOM intact bilaterally and No nystagmus Neck Neck: full ROM and no tracheal deviation Chest Chest: normal inspection of the chest Resp Auscultation: clear to auscultation bilaterally Cardio Rate: regular rate Rhythm: regular rhythm GI Inspection: normal to inspection Palpation: soft, no guarding, not rigid and nontender Back/Spine/Pelvis Back: No no CVA tenderness Thoracic/Lumbar Spine: thoracic and lumbar spine normal to inspection Skin General skin exam: no rashes or lesions noted Neuro General: patient alert, patient awake and patient oriented x3 Cranial Nerves: CN's II-XI intact bilaterally, PERRL and no nystagmus Cognition: normal cognition Gait: normal gait Motor: muscle tone normal throughout and strength 5/5 throughout Sensory Exam: no sensory deficits noted Extrem General: normal to inspection Course Vital Signs Vital signs: Vital Signs Temperature 36.4 C L 11/01/23 06:56 Pulse 66 11/01/23 06:56 Respiratory Rate 14 11/01/23 06:56 Blood Pressure 217/113 H 11/01/23 06:56 Pulse Oximetry 99 11/01/23 06:56 Temperature 36.4 C L 11/01/23 07:01 Temperature Source Temporal Artery Scan 11/01/23 07:01 Pulse 66 11/01/23 07:01 Respiratory Rate 14 11/01/23 07:01 Respiratory Effort Normal, Non-Labored 11/01/23 07:00 Blood Pressure 217/113 H 11/01/23 07:01 Blood Pressure Position Sitting 11/01/23 07:01 Pulse Oximetry 99 11/01/23 07:01 Oxygen Delivery Method Room Air 11/01/23 07:01 Oxygen Flow Rate 0 11/01/23 07:01 Pain Level 10 11/01/23 07:07 Medical Decision Making This is a 53-year-old female who presents with right-sided facial pain. No neurologic deficits and consistent with her previous trigeminal neuralgia. Already taking oxcarbazepine, amitriptyline, and gabapentin. Will try rescue therapy presently with sumatriptan and some Toradol. No other findings on examination to suggest a separate etiology. No signs of dental infection. No neck pain or meningismus to suggest meningitis. No head injuries or any headache and no vision changes so no concern for intracranial hemorrhage or intracranial mass presently. Will treat for worsening trigeminal neuralgia and reevaluate. 805am re-eval Pain improved. Has room to increase her dose of oxcarbazepine as she is on 300 mg in the morning and 600 mg at night. Her last dose increase was about a month ago. Will increase to 600 mg twice daily. She is agreeable with this plan. Will discharge with return precautions. Quality:SDOH Health Related Social Needs: No Data to Display PFSH All Active Problems (Updated 11/01/23 @ 08:06 by Sidney Lugo MD) Trigeminal neuralgia pain (Acute) Colon cancer screening (Acute) Medical History Hypertension Anxiety disorder Urge incontinence Heart murmur, systolic Viral meningitis Liver disease Hyperlipidemia Alcohol abuse, in remission in remission for 13 years Cocaine abuse in remission in remission for 13 years History of hepatitis Hep C. pt. states she has been treated in 2004, states she did the Interferon treatment. Family history of chronic ischemic heart disease Family history of diabetes mellitus Tobacco use disorder Benign essential hypertension Onychomycosis Surgical History H/O tubal ligation Normal colonoscopy (~12/2019) Hx of section x2 Hx of cholecystectomy History of appendectomy Family History Mother Diabetes Emphysema lung Coronary artery disease Hypertension Hyperlipidemia Father Heart disease Coronary artery disease Hypertension Hyperlipidemia Sister Heart disease Coronary artery disease Diabetes Stroke Hypertension Hyperlipidemia Social History Smoking/Tobacco Use Status: Current every day Tobacco Type: cigarettes Quit status: quit date established Smoking risk assessment performed?: Yes Alcohol Intake: former Drug use: Current Sobriety Substance use type: former substance user and crack/cocaine Details: 13 years Household members: none Number of Children: 0 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
[2023-11-01] MEDS: Ketorolac 30 MG/ML VIAL IM (07:32)
[2023-11-01] MEDS: SUMAtriptan 6 MG/0.5 ML VIAL 3 MG SC ×2 (07:33→08:07)
[2023-11-01] MEDS: OXcarbazepine 150 MG TAB 300 MG PO (08:07)
[2023-11-01 08:09] VITALS: BP 200/121; O2SAT 56
[2023-11-01 08:20] VITALS: BP 200/121; O2SAT 56
== END 2023-11-01 08:22 | disposition home or self-care (01) ==
LOC: ER 08:22
PROVIDERS: Emergency Provider Student in an Organized Health Care Education/Training Program; PCP Physician Assistant
DX: G50.0 Trigeminal neuralgia (principal)
CPT/HCPCS: 96372; 96374; 96375; 99284; 99283; J1885; J3030

== ENCOUNTER 2023-11-13 12:58 | Observation (INO) | payer MEDICAID, SELFPAY ==
[2023-11-13] VITALS (44 sets, daily range): BP systolic 136–233; BP diastolic 80–137; PULSE 70–105; RESP 9–26; TEMP 36.3–36.8; O2SAT 89–100
[2023-11-13] MEDS: Lactated Ringers 1,000 ML 1000 ML IV (13:40)
--- NOTE | 2023-11-13 13:45 | RT.EKG_ITS ---
APPROVED REPORT Exam: Resting ECG Reason for Exam: weakness Patient Location: E HR:88 bpm ECG Measurements Heart Rate [address] 247 P 70 QRSd 100 QRS -31 QT 402 T 50 QTc 486 Conclusion Sinus rhythm...normal P axis, V-rate 60- [address] interval...CT >210, V-rate 50- 90 Left axis deviation...QRS axis (-30,-90) Sinus rhythm at a rate of 88 with first-degree AV block with CT interval of 247 ms. Interventricular conduction delay QRS 100 ms. QTc within normal limits. Left axis deviation no signs of LVH. Mild left lateral chest wall ST segment depressions. No ST segment elevations. No T wave versions. No a cute injury pattern. No prior for comparison.
[2023-11-13 13:51] LABS: Abs Immature Grans 0.04 10^3/uL (0.0-0.06); Absolute Basophil Count 0.06 10^3/uL (0.0-0.2); Absolute Eosinophil Count 0.01 10^3/uL (0.0-0.7); Absolute Lymphocyte Count 1.24 10^3/uL (1.2-3.4); Absolute Monocyte Count 0.31 10^3/uL (0.1-0.8); Absolute Neutrophil Count 10.64 10^3/uL (1.2-6.7); Basophils % 0.5 %; Eosinophils % 0.1 %; HCT 49.9 % (36.0-46.0); HGB 17.7 g/dL (11.2-15.7); Immature Grans % 0.3 %; Lymphocytes % 10.1 %; MCH 30.2 pg (27.0-33.0); MCHC 35.5 % (32.0-36.0); MCV 85 fL (80-95); MPV 9.4 fL (8.0-11.0); Monocytes % 2.5 %; Neutrophils % 86.5 %; Platelet Count 359 10^3/uL (130-400); RBC 5.86 10^6/uL (3.93-5.22); RDW 11.8 % (11.7-14.6); RDW-SD 36.6 fL
[2023-11-13] MEDS: LORazepam 2 MG/ML VIAL 0.5 MG IVP (13:55)
[2023-11-13] MEDS: Prochlorperazine 10 MG/2 ML VIAL IVP (14:00)
--- NOTE | 2023-11-13 14:12 | W.ED.GENAD ---
Discharge Plan Disposition Patient Disposition: Home Condition: Stable Discharge Details Clinical Impression: Urinary tract infection, Phenytoin toxicity, QT prolongation, Troponin level elevated, Trigeminal neuralgia pain Primary Care Provider: Raffi Nolasco ED Provider: Emmanuelle Boykin Discharge Data Discharge Date/Time-TO BE ENTERED AT DEPARTURE: 11/13/23 16:45 HPI General Date/Time Provider Initiated Documentation: 11/13/23 13:24. HPI Narrative: 53-year-old female with complex history consistent with trigeminal neuralgia, refractory postoperatively presents with report of nausea vomiting and diarrhea. Was discharged from [facility] on Wednesday after a 3-day stay secondary to refractory trigeminal neuralgia started on phenytoin. Patient states she was having trouble with speech and walking secondary to dizziness so she decreased her phenytoin to evenings only last evening. She states today she woke with nausea vomiting and diarrhea worsening trigeminal neuralgia pain. She denies any fever or chills. She denies chest pain or shortness of breath. She has been unable to take any of her meds today secondary to nausea or vomiting. She has any alcohol consumption. Related Data Home Medications Medication Instructions Recorded Confirmed albuterol sulfate 90 mcg/actuation 2 puff inhalation Q6H PRN 06/27/19 11/13/23 aerosol inhaler (ProAir HFA) lisinopril 20 mg tablet 30 mg PO DAILY 06/27/19 11/13/23 simvastatin 20 mg tablet 20 mg PO HS 06/27/19 11/13/23 varenicline 1 mg tablet (Chantix) 1 mg PO BID 06/27/19 11/13/23 nicotine 14 mg/24 hr daily 1 patch transdermal DAILY PRN 08/03/19 11/13/23 transdermal patch amlodipine 10 mg tablet 10 mg PO DAILY 02/04/22 11/13/23 metoprolol tartrate 50 mg tablet 50 mg PO BID 02/04/22 11/13/23 oxybutynin chloride 5 mg tablet 5 mg PO HS 02/04/22 11/13/23 sertraline 100 mg tablet 100 mg PO DAILY 02/04/22 11/13/23 clonazepam 0.5 mg tablet 0.5 mg PO DAILY PRN 04/15/22 11/13/23 buspirone 5 mg tablet 5 mg PO BID PRN 11/01/23 11/13/23 gabapentin 300 mg capsule 900 mg PO TID 11/01/23 11/13/23 nortriptyline 10 mg capsule 10 mg PO HS 11/01/23 11/13/23 oxcarbazepine 600 mg tablet 600 mg PO BID 30 days #60 tabs 11/01/23 11/13/23 umeclidinium 62.5 mcg/actuation 1 inh inhalation DAILY 11/01/23 11/13/23 blister powder for inhalation (Incruse Ellipta) phenytoin sodium extended 100 mg 100 mg PO HS #0 caps 11/14/23 11/13/23 capsule sulfamethoxazole 800 1 tab PO BID #6 tabs 11/14/23 mg-trimethoprim 160 mg tablet (Bactrim DS) Previous Rx's Medication Instructions Recorded oxcarbazepine 600 mg tablet 600 mg PO BID 30 days #60 tabs 11/01/23 phenytoin sodium extended 100 mg 100 mg PO HS #0 caps 11/14/23 capsule sulfamethoxazole 800 1 tab PO BID #6 tabs 11/14/23 mg-trimethoprim 160 mg tablet (Bactrim DS) Allergies Allergy/AdvReac Type Severity Reaction Status Date / Time cefazolin sodium [From [facility]] Allergy Severe Anaphylaxsi Verified 11/13/23 14:49 s codeine Allergy Unknown unknown Verified 11/13/23 13:18 hay fever Allergy Mild Other (See Uncoded 11/13/23 14:49 Comment) General Stated Complaint: Nausea/Vomit/Diar LISA: 2 Exam Narrative Exam Narrative: Alert and oriented 53-year-old female, pupils equal round reactive to light and accommodation, no scleral icterus, lungs clear to auscultation, cardiac rate rhythm regular, no abdominal tenderness, nonfocal neurological exam, no peripheral edema, able to follow basic commands, GCS 15, no abdominal tenderness Course Vital Signs Vital signs: Vital Signs Temperature 36.3 C L 11/13/23 13:13 Pulse 101 H 11/13/23 13:13 Respiratory Rate 18 11/13/23 13:13 Blood Pressure 233/137 H 11/13/23 13:13 Pulse Oximetry 98 11/13/23 13:13 Temperature 36.3 C L 11/13/23 13:13 Pulse 101 H 11/13/23 13:13 Respiratory Rate 18 11/13/23 13:13 Blood Pressure 233/137 H 11/13/23 13:13 Pulse Oximetry 98 11/13/23 13:13 Lab/Test Results Lab/Test Results: Laboratory Tests Range/Units 11/13/23 11/13/23 11/13/23 13:31 13:33 13:40 WBC (4.4-10.8) 10^3/uL 12.30 H RBC (3.93-5.22) 10^6/uL 5.86 H Hgb (11.2-15.7) g/dL 17.7 H Hct (36.0-46.0) % 49.9 H MCV (80-95) fL 85 MCH (27.0-33.0) pg 30.2 MCHC (32.0-36.0) % 35.5 RDW (11.7-14.6) % 11.8 Plt Count (130-400) 10^3/uL 359 MPV (8.0-11.0) fL 9.4 Immature Gran % % 0.3 Neutrophils % % 86.5 Lymphocytes % % 10.1 Monocytes % % 2.5 Eosinophils % % 0.1 Basophils % % 0.5 Nucleated RBC % (0.0-0.3) % 0.0 Absolute Neutrophils (1.2-6.7) 10^3/uL 10.64 H Absolute Lymphocytes (1.2-3.4) 10^3/uL 1.24 Absolute Monocytes (0.1-0.8) 10^3/uL 0.31 Absolute Eosinophils (0.0-0.7) 10^3/uL 0.01 Absolute Basophils (0.0-0.2) 10^3/uL 0.06 Ammonia Cancelled Troponin I Ethyl Alcohol Cancelled Range/Units 11/13/23 11/13/23 13:48 16:32 WBC (4.4-10.8) 10^3/uL RBC (3.93-5.22) 10^6/uL Hgb (11.2-15.7) g/dL Hct (36.0-46.0) % MCV (80-95) fL MCH (27.0-33.0) pg MCHC (32.0-36.0) % RDW (11.7-14.6) % Plt Count (130-400) 10^3/uL MPV (8.0-11.0) fL Immature Gran % % Neutrophils % % Lymphocytes % % Monocytes % % Eosinophils % % Basophils % % Nucleated RBC % (0.0-0.3) % Absolute Neutrophils (1.2-6.7) 10^3/uL Absolute Lymphocytes (1.2-3.4) 10^3/uL Absolute Monocytes (0.1-0.8) 10^3/uL Absolute Eosinophils (0.0-0.7) 10^3/uL Absolute Basophils (0.0-0.2) 10^3/uL Ammonia Troponin I Cancelled Cancelled Ethyl Alcohol Medical Decision Making 53-year-old female presenting in acute distress secondary nausea vomiting and diarrhea/trigeminal neuralgia. Leukocytosis, 12,000 likely secondary to vomiting, sodium 133, chloride 95, gap of 13.2, glucose 167 ammonia less than 10, urinalysis with likely infection, positive nitrates bacteria and white blood cells. Troponin 68 likely secondary to troponin leak in the presence of acute stress response. Patient does not have ischemia or injury on her EKG and does not endorse any chest pain. Will give a dose of aspirin. will treat for UTI. Phenytoin level of 26.8 likely consistent with phenytoin toxicity. Case was discussed with poison control in the emergency department and recommendation for every 6 hour phenytoin levels with continued fluids and supportive care. I spent approximately 10 minutes on the phone with poison control discussing plan of care. Bactrim for UTI. Patient's blood pressure on repeat assessment was 225/113 with a mildly elevated troponin secondary and setting of acute distress gastroenterology distress, will repeat troponin with a nonischemic EKG. give a dose of aspirin and continue to monitor. Patient received Compazine, IV fluids, and half a milligram of Ativan, 5 mg of metoprolol as patient is unable to take her antihypertensive secondary to GI distress and remains quite hypertensive does not have a headache and low suspicion clinically for hypertensive urgency or emergency, and a milligram of Dilaudid to treat trigeminal neuralgia as she is unable to take her oral medications including oxcarbazepine and Neurontin. Case was discussed with the admitting hospitalist, Dr. Raphael Quality:[facility] Health Related Social Needs: No Data to Display Critical Care Time Critical Care Time Attestation: Presently 35 minutes of critical care time secondary to acute phenytoin toxicity requiring telemetry monitoring causing an elevated troponin level secondary likely to acute distress from vomiting and a troponin leak, urinary tract infection requiring IV antibiotics, IV fluids, supportive care, admission to the hospital for repeat troponin levels, persistent telemetry monitoring, and repeat diagnostic lab work. Requiring poison control involvement and hospitalist consultation and review. [facility] All Active Problems (Updated 11/14/23 @ 12:39 by GARY Raymond) Phenytoin toxicity (Acute) Troponin level elevated (Acute) QT prolongation (Acute) Urinary tract infection (Acute) Trigeminal neuralgia pain (Acute) Colon cancer screening (Acute) Medical History Hypertension Anxiety disorder Urge incontinence Heart murmur, systolic Viral meningitis Liver disease Hyperlipidemia Alcohol abuse, in remission in remission for 13 years Cocaine abuse in remission in remission for 13 years History of hepatitis Hep C. pt. states she has been treated in 2004, states she did the Interferon treatment. Family history of chronic ischemic heart disease Family history of diabetes mellitus Tobacco use disorder Benign essential hypertension Onychomycosis Surgical History H/O tubal ligation Normal colonoscopy (~12/2019) Hx of section x2 Hx of cholecystectomy History of appendectomy Family History Mother Diabetes Emphysema lung Coronary artery disease Hypertension Hyperlipidemia Father Heart disease Coronary artery disease Hypertension Hyperlipidemia Sister Heart disease Coronary artery disease Diabetes Stroke Hypertension Hyperlipidemia Social History Smoking/Tobacco Use Status: Current every day Tobacco Type: cigarettes Quit status: quit date established Smoking risk assessment performed?: Yes Alcohol Intake: former Drug use: Current Sobriety Substance use type: former substance user and crack/cocaine Details: 13 years Household members: none Housing: house Number of Children: 0 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
[2023-11-13 14:18] LABS: ALT 40 U/L (14-59); AST 20 U/L (15-37); Albumin 4.4 g/dL (3.4-5.0); Alkaline Phosphatase 148 U/L (46-116); Anion Gap 13.2 mmol/L (3-11); BUN 9 mg/dL (7-18); Bilirubin, Total 0.5 mg/dL (0.2-1.0); CO2 24.8 mmol/L (21.0-32.0); CREATININE 0.8 mg/dL (0.55-1.02); Calcium 9.8 mg/dL (8.5-10.1); Chloride 95 mmol/L (98-107); Glucose 167 mg/dL (74-106); Magnesium 1.5 mg/dL (1.8-2.4); Sodium 133 mmol/L (136-145); TSH (W/Ref FT4) 1.08 uIU/mL (0.36-3.74); Total Protein 8.8 g/dL (6.4-8.2)
[2023-11-13 14:19] LABS: ETHANOL BLOOD < 3.0 mg/dL (<10)
[2023-11-13 14:20] LABS: Troponin I 68 ng/L (< or =60)
[2023-11-13 14:37] LABS: PHENYTOIN (DILANTIN) 26.8 ug/mL (10.0-20.0)
[2023-11-13 14:37] LABS: Ammonia < 10 umol/L (11-32)
[2023-11-13 14:45] LABS: Bilirubin Negative (Negative); Blood Trace-lysed (Negative); Clarity Clear (Clear); Glucose 500 mg/dL (Negative); Ketones 15 mg/dL (Negative); Leukocyte Esterase Negative (Negative); Nitrite Positive (Negative); Specific Gravity 1.025 (1.005-1.025); Urobilinogen 0.2 mg/dL (Up to 0.2); pH 8.5 (5-8)
[2023-11-13 15:04] LABS: Epithelial Cells Rare HPF (Negative); Other Cells Rare Transitional (Negative); RBC 0-2 HPF (0-2)
[2023-11-13 15:05] LABS: Bacteria Many HPF (Negative); C & S Indicated? Yes; Casts 0-2 Hyaline LPF (Negative); Crystals Negative HPF (Negative); Mucus Negative (Negative)
[2023-11-13] MEDS: MAGNESIUM SULFATE 1 GM/100 ML BAG IVINF (15:25)
[2023-11-13] MEDS: HYDROmorphone 2 MG/ML SYR 1 MG IVP ×3 (15:45→23:45)
[2023-11-13] MEDS: Metoprolol 5 MG/5 ML VIAL IVP (15:55)
--- NOTE | 2023-11-13 16:16 | HPE_ITS ---
Date of service: 11/13/23 Time of Service: 16:17 Assessment and Plan Assessment and plan (1) Phenytoin toxicity: Status: Acute Assessment and plan: Nausea, vomiting, diarrhea, phenytoin level 26.8 - upper level 20 Poison control was consulted by ED provider Check phenytoin q 6h - ordered, next due @ 2000h. Compazine for vomiting Stool spec Loperamide prn (2) Trigeminal neuralgia pain: Status: Acute Assessment and plan: Patient continues to have trigeminal neuralgia pain despite her medications - would benefit from seeing her neurologist once this acute phase has resolved. Consider neuro consult if not improving in patient Continue home meds when able to take oral Compazine, (QT prolongation - no ondansetron) Hydromprphone for pain MIVF (3) Hypertension: Assessment and plan: 198/126 in ED, metoprolol IV given with good results - she was unable to take her usual BP meds s/t vomiting Start BP meds in am if able to take PO Continue compazine for vomiting meoprolo 5 mg IV q 4h prn BP > 180s/100d (4) Urinary tract infection: Status: Acute Assessment and plan: Positive urinary tract infection ED reports anaphylaxis to ceftriasone and started her on Bactrim IV Patient chart reflects allergy to cefazolin causes anaphylaxis, not ceftriaxone - will confirm with patient (5) QT prolongation: Status: Acute Assessment and plan: QT prolongation on EKG avoid meds that will cause increase in QT prolongation (6) Troponin level elevated: Status: Acute Assessment and plan: Initital troponin in ED 68 Denies CP, no SOB Trend; second troponin due at 1715h Discussed [facility] Dr Raphael History of Present Illness History of Present Illness Chief Complaint: Nausea, vomiting, diarrhea N arrative: This is a 53 year old female patient with past medical history of refractory postoperatively trigeminal neuralgia on phenytoin , hypertension, who presented to the [facility] ED for evaluation of nausea, vomiting and diarrhea. Patient reported she decreased phenytoin to only evening dose yesterday. Today she is unable to keep anything down, including her usual medications. Patient's blood pressure in the ED is 198/126, she was given metoprolol 5 mg IV and it came down to 144/87. Labs in the ED significant for phenytoin level 26.8, WBC 12.30, hgb 17.7, sodium 133, chloride 95, anion gap 13.2, glucose 167, manesium 1.5, repleted in ED, alk phos 148, ammonia < 10, troponin 68, urine positive for infection, covid, flu, RSV negative. Patient has allergy to cefazolin and ceftriaxone. Patient was started on Bactrim IV in the ED. No imaging was done. Patient denied headache and no fever. Urine and blood cultures pending. Patient was seen at the [facility] ED on 11/01/23 for right sided facial pain and has a history of trigeminal neuralgia pain. She was treated with sumatriptin and toradol and felt better. Her oxcarbazepine was increased to 600 mg BID. She has been dealing with trigeminal neuralgia for years. She underwent surgery for trigeminal neuralgia at [facility] in July 2022 and initially did well post-surgery. However, over the last 3 to 4 months, her trigeminal neuralgia symptoms have returned. She is currently on maximal doses of gabapentin, oxcarbazepine, and amitriptyline to manage symptoms. She denies any other neurological symptoms such as headache, vision changes, or ear pain. There are no systemic symptoms like fevers or chills. She has followed up with their previous surgeon and neurologist at [facility], indicating ongoing management and monitoring of their condition. Despite surgical intervention and maximum medical therapy, the person is experiencing a recurrence of their trigeminal neuralgia symptoms. This situation may warrant further evaluation by neurology to assess the current status of the trigeminal nerve and to explore additional treatment options or adjustments to her current regimen. Patient is placed on observation status on the medical floor for further testing and treatment. Patient is full code. Patient is in agreement with treatment plan. Review of Systems All systems reviewed & are unremarkable except as noted in HPI and below PFSH All Active Problems (Updated 11/13/23 @ 20:42 by Flower Del Toro NP) Phenytoin toxicity (Acute) Troponin level elevated (Acute) QT prolongation (Acute) Urinary tract infection (Acute) Trigeminal neuralgia pain (Acute) Colon cancer screening (Acute) Medical History Hypertension Anxiety disorder Urge incontinence Heart murmur, systolic Viral meningitis Liver disease Hyperlipidemia Alcohol abuse, in remission in remission for 13 years Cocaine abuse in remission in remission for 13 years History of hepatitis Hep C. pt. states she has been treated in 2004, states she did the Interferon treatment. Family history of chronic ischemic heart disease Family history of diabetes mellitus Tobacco use disorder Benign essential hypertension Onychomycosis Surgical History H/O tubal ligation Normal colonoscopy (~12/2019) Hx of section x2 Hx of cholecystectomy History of appendectomy Family History Mother Diabetes Emphysema lung Coronary artery disease Hypertension Hyperlipidemia Father Heart disease Coronary artery disease Hypertension Hyperlipidemia Sister Heart disease Coronary artery disease Diabetes Stroke Hypertension Hyperlipidemia Social History Smoking/Tobacco Use Status: Current every day Tobacco Type: cigarettes Quit status: quit date established Smoking risk assessment performed?: Yes Alcohol Intake: former Drug use: Current Sobriety Substance use type: former substance user and crack/cocaine Details: 13 years Household members: none Housing: house Number of Children: 0 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 What is your relationship status?: Panel score (0-1 are the most socially isolated patients): 0 Do you feel safe at home: Yes Do you feel safe in your relationship?: Yes Meds Allergies and Home Medications Allergies Allergy/AdvReac Type Severity Reaction Status Date / Time cefazolin sodium [From [facility]] Allergy Severe Anaphylaxsi Verified 11/13/23 14:49 s codeine Allergy Unknown unknown Verified 11/13/23 13:18 hay fever Allergy Mild Other (See Uncoded 11/13/23 14:49 Comment) Home Medications Medication Instructions Recorded Confirmed Type albuterol sulfate 90 mcg/actuation 2 puff inhalation Q6H PRN 06/27/19 11/13/23 History aerosol inhaler (ProAir HFA) lisinopril 20 mg tablet 30 mg PO DAILY 06/27/19 11/13/23 History simvastatin 20 mg tablet 20 mg PO DAILY 06/27/19 11/13/23 History varenicline 1 mg tablet (Chantix) 1 mg PO BID 06/27/19 11/13/23 History nicotine 14 mg/24 hr daily 1 patch transdermal DAILY PRN 08/03/19 11/13/23 History transdermal patch amlodipine 10 mg tablet 10 mg PO DAILY 02/04/22 11/13/23 History metoprolol tartrate 50 mg tablet 50 mg PO BID 02/04/22 11/13/23 History oxybutynin chloride 5 mg tablet 5 mg PO DAILY 02/04/22 11/13/23 History sertraline 100 mg tablet 100 mg PO DAILY 02/04/22 11/13/23 History clonazepam 0.5 mg tablet 0.5 mg PO DAILY PRN 04/15/22 11/13/23 History pregabalin 150 mg capsule 150 mg PO BID #60 caps 04/15/22 11/13/23 Rx buspirone 5 mg tablet 5 mg PO BID PRN 11/01/23 11/13/23 History gabapentin 300 mg capsule 300 mg PO TID 11/01/23 11/13/23 History nortriptyline 10 mg capsule 10 mg PO HS 11/01/23 11/13/23 History oxcarbazepine 600 mg tablet 600 mg PO BID 30 days #60 tabs 11/01/23 11/13/23 Rx umeclidinium 62.5 mcg/actuation 1 inh inhalation DAILY 11/01/23 11/13/23 History blister powder for inhalation (Incruse Ellipta) phenytoin sodium extended 100 mg mg PO 11/13/23 History capsule Exam Const General: cooperative Nutritional Appearance: average body habitus Orientation: alert, awake and oriented x3 HENMT Head: normal to inspection Ears: external ears normal Mouth: moist mucous membranes Eyes Pupils: PERRL EOM: EOM intact bilaterally and No nystagmus Neck Neck: full ROM and no tracheal deviation Chest Chest: normal inspection of the chest Resp Auscultation: clear to auscultation bilaterally Cardio Rate: regular rate Rhythm: regular rhythm GI Inspection: normal to inspection Palpation: soft, no guarding, not rigid and nontender Back/Spine/Pelvis Back: No no CVA tenderness Thoracic/Lumbar Spine: thoracic and lumbar spine normal to inspection Skin General skin exam: no rashes or lesions noted Neuro General: patient alert, patient awake and patient oriented x3 Cranial Nerves: CN's II-XI intact bilaterally, PERRL and no nystagmus Cognition: normal cognition Gait: normal gait Motor: muscle tone normal throughout and strength 5/5 throughout Sensory Exam: no sensory deficits noted Extrem General: normal to inspection Results Labs 11/13/23 13:40 11/13/23 13:40 Labs: Laboratory Results - last 24 hr 11/13/23 11/13/23 11/13/23 13:31 13:33 13:40 WBC 12.30 H RBC 5.86 H Hgb 17.7 H Hct 49.9 H MCV 85 MCH 30.2 MCHC 35.5 RDW 11.8 Plt Count 359 MPV 9.4 Immature Gran % 0.3 Neutrophils % 86.5 Lymphocytes % 10.1 Monocytes % 2.5 Eosinophils % 0.1 Basophils % 0.5 Nucleated RBC % 0.0 Absolute Neutrophils 10.64 H Absolute Lymphocytes 1.24 Absolute Monocytes 0.31 Absolute Eosinophils 0.01 Absolute Basophils 0.06 Sodium 133 L Potassium 4.0 Chloride 95 L Carbon Dioxide 24.8 Anion Gap 13.2 H BUN 9 Creatinine 0.8 Est GFR (CKD-EPI 2020) 87.50 Glucose 167 H Calcium 9.8 Magnesium 1.5 L Total Bilirubin 0.5 AST 20 ALT 40 Alkaline Phosphatase 148 H Ammonia Cancelled Troponin I 68 H* Total Protein 8.8 H Albumin 4.4 TSH 1.08 Urine Color Urine Clarity Urine pH Ur Specific [place] Urine Protein Urine Ketones Urine Blood Urine Nitrite Urine Bilirubin Urine Urobilinogen Ur Leukocyte Esterase Urine RBC Urine WBC Ur Epithelial Cells Urine Crystals Urine Bacteria Urine Casts Urine Mucus Urine Other Ur Culture Indicated? Urine Glucose Phenytoin 26.8 H* Ethyl Alcohol Cancelled < 3.0 11/13/23 11/13/23 11/13/23 13:48 14:09 14:15 WBC RBC Hgb Hct MCV MCH MCHC RDW Plt Count MPV Immature Gran % Neutrophils % Lymphocytes % Monocytes % Eosinophils % Basophils % Nucleated RBC % Absolute Neutrophils Absolute Lymphocytes Absolute Monocytes Absolute Eosinophils Absolute Basophils Sodium Potassium Chloride Carbon Dioxide Anion Gap BUN Creatinine Est GFR (CKD-EPI 2020) Glucose Calcium Magnesium Total Bilirubin AST ALT Alkaline Phosphatase Ammonia < 10 L Troponin I Cancelled Total Protein Albumin TSH Urine Color Urine Clarity Urine pH Ur Specific [place] Urine Protein Urine Ketones Urine Blood Urine Nitrite Urine Bilirubin Urine Urobilinogen Ur Leukocyte Esterase Urine RBC Urine WBC Ur Epithelial Cells Urine Crystals Urine Bacteria Urine Casts Urine Mucus Urine Other Ur Culture Indicated? Urine Glucose Phenytoin Ethyl Alcohol Cancelled 11/13/23 11/13/23 14:31 16:32 WBC RBC Hgb Hct MCV MCH MCHC RDW Plt Count MPV Immature Gran % Neutrophils % Lymphocytes % Monocytes % Eosinophils % Basophils % Nucleated RBC % Absolute Neutrophils Absolute Lymphocytes Absolute Monocytes Absolute Eosinophils Absolute Basophils Sodium Potassium Chloride Carbon Dioxide Anion Gap BUN Creatinine Est GFR (CKD-EPI 2020) Glucose Calcium Magnesium Total Bilirubin AST ALT Alkaline Phosphatase Ammonia Troponin I Cancelled Total Protein Albumin TSH Urine Color Yellow Urine Clarity Clear Urine pH 8.5 H Ur Specific [place] 1.025 Urine Protein >=300 H Urine Ketones 15 H Urine Blood Trace-lysed H Urine Nitrite Positive H Urine Bilirubin Negative Urine Urobilinogen 0.2 Ur Leukocyte Esterase Negative Urine RBC 0-2 Urine WBC 10-20 H Ur Epithelial Cells Rare Urine Crystals Negative Urine Bacteria Many Urine Casts 0-2 Hyaline Urine Mucus Negative Urine Other Rare Transitional Ur Culture Indicated? Yes Urine Glucose 500 H Phenytoin Ethyl Alcohol Last Vital Signs Temp 36.3 C L 11/13/23 13:13 Pulse 93 H 11/13/23 15:04 Resp 13 11/13/23 15:04 BP 140/108 H 11/13/23 14:46 Pulse Ox 95 11/13/23 14:50 Time Spent Time spent with Patient: 40-54 minutes Time was spent: preparing to see the patient(eg.review tests), obtaining and/or reviewing separately otained hiistory, ordering medications,tests, procedures, referring, communicating with other health manager medicare, indepentently interpreting results, counseling the patient and care coordination
[2023-11-13] MEDS: Aspirin 81 MG CHEW 324 MG CH (16:18)
[2023-11-13 18:05] LABS: Troponin I 155 ng/L (< or =60)
--- NOTE | 2023-11-13 18:15 | RT.EKG_ITS ---
APPROVED REPORT Exam: Resting ECG Reason for Exam: elevated troponin Patient Location: I HR:75 bpm ECG Measurements Heart Rate 75 AXIS MA 199 P 46 QRSd 101 QRS -38 QT 425 T 14 QTc 475 Conclusion Sinus rhythm...normal P axis, V-rate 50- 99 Probable left atrial enlargement...P >50mS, <-0.10mV V1
--- NOTE | 2023-11-13 18:34 | NUR.NOTE ---
1000cc of LR given. not able to account for it in MAR.Nursing Note:
[2023-11-13] MEDS: Lactated Ringers 1,000 ML 150 ML IV (18:39)
[2023-11-13 18:54] LABS: Lab Add On Test DONE
[2023-11-13 19:09] LABS: Creatine Kinase 91 U/L (26-192)
[2023-11-13 20:53] LABS: PHENYTOIN (DILANTIN) 22.6 ug/mL (10.0-20.0)
[2023-11-13 21:10] LABS: Troponin I 127 ng/L (< or =60)
[2023-11-13] MEDS: Nicotine 14 MG/24 HR PATCH TD (21:37)
[2023-11-13 22:03] LABS: PHENYTOIN (DILANTIN) 16.1 ug/mL (10.0-20.0)
[2023-11-13] MEDS: Gabapentin 300 MG CAP 900 MG PO (22:32)
[2023-11-13] MEDS: Metoprolol 50 MG TAB PO (22:36)
[2023-11-13] MEDS: Simvastatin 20 MG TAB PO (22:37)
[2023-11-13] MEDS: Oxybutynin 5 MG TAB PO (22:37)
[2023-11-13] MEDS: OXcarbazepine 150 MG TAB 600 MG PO (22:37)
[2023-11-13] MEDS: Nortriptyline 10 MG CAP PO (22:38)
[2023-11-13] MEDS: clonazePAM 0.5 MG TAB PO (22:52)
[2023-11-14] MEDS: Lactated Ringers 1,000 ML 150 ML IV (01:20)
[2023-11-14 02:15] LABS: PHENYTOIN (DILANTIN) 13.8 ug/mL (10.0-20.0)
[2023-11-14] MEDS: HYDROmorphone 2 MG/ML SYR IVP ×3 (02:37→08:40)
[2023-11-14 03:35] VITALS: BP 111/72; PULSE 74; RESP 17; TEMP 36.5; O2SAT 93
[2023-11-14] MEDS: Gabapentin 300 MG CAP 900 MG PO (06:41)
[2023-11-14 06:53] LABS: Abs Immature Grans 0.03 10^3/uL (0.0-0.06); Absolute Basophil Count 0.08 10^3/uL (0.0-0.2); Absolute Eosinophil Count 0.16 10^3/uL (0.0-0.7); Absolute Lymphocyte Count 2.06 10^3/uL (1.2-3.4); Absolute Monocyte Count 0.68 10^3/uL (0.1-0.8); Absolute Neutrophil Count 6.92 10^3/uL (1.2-6.7); Basophils % 0.8 %; Eosinophils % 1.6 %; HCT 44.1 % (36.0-46.0); HGB 15.5 g/dL (11.2-15.7); Immature Grans % 0.3 %; Lymphocytes % 20.7 %; MCH 30.4 pg (27.0-33.0); MCHC 35.1 % (32.0-36.0); MCV 87 fL (80-95); MPV 9.7 fL (8.0-11.0); Monocytes % 6.8 %; Neutrophils % 69.8 %; Platelet Count 261 10^3/uL (130-400); RDW 12.2 % (11.7-14.6); RDW-SD 38.9 fL; WBC 9.93 10^3/uL (4.4-10.8)
--- NOTE | 2023-11-14 08:00 | RT.EKG_ITS ---
APPROVED REPORT Exam: Resting ECG Reason for Exam: EKG changes Patient Location: I HR:67 bpm ECG Measurements Heart Rate 67 AXIS NV 182 P 19 QRSd 107 QRS -24 QT 425 T 15 QTc 449 Conclusion Sinus rhythm...normal P axis, V-rate 50- 99 Borderline left axis deviation...QRS axis (-15,-29) Borderline T wave abnormalities...T/QRS ratio < 1/20 or flat T
[2023-11-14 08:08] VITALS: BP 140/84; PULSE 68; RESP 18; TEMP 36.6; O2SAT 96
[2023-11-14 08:21] LABS: ALT 33 U/L (14-59); AST 17 U/L (15-37); Albumin 3.4 g/dL (3.4-5.0); Alkaline Phosphatase 121 U/L (46-116); Anion Gap 8.3 mmol/L (3-11); BUN 8 mg/dL (7-18); Bilirubin, Total 0.4 mg/dL (0.2-1.0); CO2 28.7 mmol/L (21.0-32.0); CREATININE 0.9 mg/dL (0.55-1.02); Chloride 99 mmol/L (98-107); Estimated GFR 75.97 (mL/min/1.73m2); Glucose 135 mg/dL (74-106); Magnesium 1.7 mg/dL (1.8-2.4); Potassium 3.7 mmol/L (3.5-5.1); Sodium 136 mmol/L (136-145)
[2023-11-14] MEDS: OXcarbazepine 150 MG TAB 600 MG PO (08:46)
[2023-11-14] MEDS: Sertraline 100 MG TAB PO (08:47)
[2023-11-14] MEDS: amLODIPine 10 MG TAB PO (08:47)
[2023-11-14] MEDS: Lisinopril 20 MG TAB 30 MG PO (08:47)
[2023-11-14] MEDS: Sulfameth/Trimeth DS TAB 1 TAB PO (08:47)
[2023-11-14] MEDS: Metoprolol 50 MG TAB PO (08:47)
[2023-11-14] MEDS: Umeclidinium 7 CAP INHALER IH (08:53)
[2023-11-14 09:02] LABS: PHENYTOIN (DILANTIN) 14.9 ug/mL (10.0-20.0)
[2023-11-14] MEDS: MAGNESIUM SULFATE 1 GM/100 ML BAG IVINF (09:35)
[2023-11-14] MEDS: Lidocaine 2% Viscous 15 ML CUP PO (09:35)
--- NOTE | 2023-11-14 09:45 | PDOC.CMIN ---
Date of service: 11/14/23 Time of Service: 09:45 Care Management Initial Assmt Initial Assessment Reason for Hospitalization: Phenytoin Toxicity Functional Status/Living Situation Town of Residence: [facility] Advance Directives Advance Directives: Do you have an Advance Directive: N 12/07/19 15:14 AD On File at [facility]: N 12/07/19 15:14 Date Asked 11/13/23 11/13/23 15:41 AD Date Reviewed COLST On File at [facility] No 11/13/23 15:41 COLST Date Scanned Code Status Resuscitation Status Full Code Portal Pt does not currently have a portal and education provided: Yes Insurance Coverage/Financial Issues Insurance: BC/BS of [place] Medicaid ACO Member: No Care Team Visit Care Team Role Provider Type Raffi Nolasco Primary Care Provider NON-[facility] STAFF PHYSICIAN GARY Raymond Emergency Provider [facility] Yosi Raphael MD Admit Provider [facility] STAFF PHYSICIAN Attending Provider Discharge Anticipated Barriers to Discharge: None Identified Patient/Family Education Needs: Review discharge instructions, discuss Ask Me Three Transportation: Private vehicle Plan: Anticipate pt will discharge home via private vehicle with family. Pt will follow up with community providers and discharge plan of care as instructed. CM will follow and support discharge planning needs. PFSH All Active Problems (Updated 11/13/23 @ 20:42 by Flower Del Toro NP) Phenytoin toxicity (Acute) Troponin level elevated (Acute) QT prolongation (Acute) Urinary tract infection (Acute) Trigeminal neuralgia pain (Acute) Colon cancer screening (Acute) Medical History Hypertension Anxiety disorder Urge incontinence Heart murmur, systolic Viral meningitis Liver disease Hyperlipidemia Alcohol abuse, in remission in remission for 13 years Cocaine abuse in remission in remission for 13 years History of hepatitis Hep C. pt. states she has been treated in 2004, states she did the Interferon treatment. Family history of chronic ischemic heart disease Family history of diabetes mellitus Tobacco use disorder Benign essential hypertension Onychomycosis Surgical History H/O tubal ligation Normal colonoscopy (~12/2019) Hx of section x2 Hx of cholecystectomy History of appendectomy Family History Mother Diabetes Emphysema lung Coronary artery disease Hypertension Hyperlipidemia Father Heart disease Coronary artery disease Hypertension Hyperlipidemia Sister Heart disease Coronary artery disease Diabetes Stroke Hypertension Hyperlipidemia Social History Smoking/Tobacco Use Status: Current every day Tobacco Type: cigarettes Quit status: quit date established Smoking risk assessment performed?: Yes Alcohol Intake: former Drug use: Current Sobriety Substance use type: former substance user and crack/cocaine Details: 13 years Household members: none Housing: house Number of Children: 0 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 What is your relationship status?: Panel score (0-1 are the most socially isolated patients): 0 Do you feel safe at home: Yes Do you feel safe in your relationship?: Yes SDOH(Care Management) Screening Will the Patient Participate in the Screening?: Unable to obtain Do you worry about having a steady place to live?: no Problems where you live: no known problems In the past 12 months, have you had to go without electric, gas, oil or water in your home?: no Have you or anyone in your house had to go without enough food to eat?: no Has lack of transportation kept you from medical appointments or from doing things needed for daily living?: no Has anyone in your support network made you feel unsafe for any reason?: no
--- NOTE | 2023-11-14 10:39 | DSE_ITS ---
Date of service: 11/14/23 Time of Service: 10:40 DS: Diagnosis Discharge Diagnosis (1) Phenytoin toxicity: Status: Acute (2) Trigeminal neuralgia pain: Status: Acute (3) Hypertension: (4) Urinary tract infection: Status: Acute (5) QT prolongation: Status: Acute (6) Troponin level elevated: Status: Acute Discharge Plan Disposition Patient Disposition: Home Condition: Improving Discharge Details Reason For Visit: Phenytoin toxicity Admit Date/Time: 11/13/23 15:24 Admit Provider: Yosi Raphael Attending Provider: Yosi Raphael Primary Care Provider: Raffi Nolasco Hospital Course Hospital Course: This is a 53 year old female patient with pasts medical history of who presented to the [facility] ED for evaluation of nausea, vomiting, and diarrhea. Blood pressure was elevated at 198/126 mmHg, managed with IV metoprolol resulting in stabilization to 144/87 mmHg. Initial labs significant for phenytoin level of 26.8, WBC 12.30, hgb 17.7, sodium 133, chloride 95, anion gap 13.2, glucose 167, magnesium 1.5 (repleted), alk phos 148, ammonia < 10, troponin 68. Urine positive for infection; COVID, flu, RSV negative. Allergy to cefazolin noted; started on Bactrim IV in ED pending culture results. No imaging performed; patient denied headache and fever. Patient was found to have phenytoin toxicity and was placed on the medical floor for observation,? The nausea and vomiting subsided with Compazine and the diarrhea lessened with loperamide.? Patient was able to take in liquid and solid food without vomiting or nausea. Phenytoin level normalized by morning and was ~ 14.? Patient stated she felt better, vital signs were stable. Patient was discharged with Bactrim for UTI and was instructed to take Phenytoin once a day as previously instructed last week?by neurology at [facility]. Continue other home medications. Patient states she was told to discontinue Lyrica. ? Patient was instructed to follow up with Neurology. Home Meds and New Rx's Prescriptions: New sulfamethoxazole-trimethoprim [Bactrim DS] 800-160 mg tablet 1 tab PO BID Qty: 6 0RF Continued nicotine 14 mg/24 hr patch 24 hour 1 patch TD DAILY PRN varenicline [Chantix] 1 mg tablet 1 mg PO BID Hold Instructions: Pt Stopped/Never Started simvastatin 20 mg tablet 20 mg PO HS albuterol sulfate [ProAir HFA] 90 mcg/actuation HFA aerosol inhaler 2 puff IH Q6H PRN lisinopril 20 mg tablet 30 mg PO DAILY amlodipine 10 mg tablet 10 mg PO DAILY oxybutynin chloride 5 mg tablet 5 mg PO HS sertraline 100 mg tablet 100 mg PO DAILY metoprolol tartrate 50 mg tablet 50 mg PO BID clonazepam 0.5 mg tablet 0.5 mg PO DAILY PRN buspirone 5 mg tablet 5 mg PO BID PRN Hold Instructions: Changed by Provider Patient Comments: TAKE 1 TABLET BY MOUTH TWICE DAILY gabapentin 300 mg capsule 900 mg PO TID Patient Comments: TAKE 3 CAPSULES BY MOUTH THREE TIMES DAILY nortriptyline 10 mg capsule 10 mg PO HS Patient Comments: TAKE 1 CAPSULE BY MOUTH EVERY DAY AT BEDTIME Incruse Ellipta 62.5 mcg/actuation blister with device 1 inh INHALATION DAILY Patient Comments: INHALE 1 PUFF BY MOUTH EVERY DAY oxcarbazepine 600 mg tablet 600 mg PO BID 30 Days Qty: 60 0RF Changed phenytoin sodium extended 100 mg capsule 100 mg PO HS Qty: 0 0RF Patient Comments: Previously taking TID, recently changed to once a day at bedtime Discontinued pregabalin 150 mg capsule 150 mg PO BID Qty: 60 5RF Discharge Instructions Instructions: Sulfamethoxazole and Trimethoprim, Phenytoin Toxicity, Urinary tract infection - Discharge instructions Additional Instructions: Take medication as prescribed by neurology. Follow up with neurologist this week. Take bactrim twice a day for three days for urinary tract infection. Stand Alone Forms: Nursing Discharge Form Referrals: NEUROLOGY,[facility] [OTHER] - Raffi Nolasco [Primary Care Provider] - (Please call the office tomorrow to set up a hospital follow up within 10-14 days) Activity:: Activity as Tolerated Equipment/Supplies:: No Equipment Needed Diet:: As Tolerated Discharge Orders Discharge Orders: Discharge Order (Routine); Ordered 11/14/23 Ordered By: Flower Del Troo Discharge Data Discharge Date/Time-TO BE ENTERED AT DEPARTURE: 11/14/23 11:35 DS: Summary Time Spent with Patient providing and/or coordinating discharge services: Greater than 30 minutes Status at Discharge Functional status at discharge: independent ambulation Overall status at discharge: patient is back to baseline Mental Status: mental status grossly normal Speech and Movement: speech and movement normal Mood: congruent mood Affect: normal affect Quality:SDOH Health Related Social Needs: No Data to Display Exam Const General: cooperative Nutritional Appearance: average body habitus Orientation: alert, awake and oriented x3 HENMT Head: normal to inspection Ears: external ears normal Mouth: moist mucous membranes Eyes Pupils: PERRL EOM: EOM intact bilaterally and No nystagmus Neck Neck: full ROM and no tracheal deviation Chest Chest: normal inspection of the chest Resp Auscultation: clear to auscultation bilaterally Cardio Rate: regular rate Rhythm: regular rhythm GI Inspection: normal to inspection Palpation: soft, no guarding, not rigid and nontender Back/Spine/Pelvis Back: No no CVA tenderness Thoracic/Lumbar Spine: thoracic and lumbar spine normal to inspection Skin General skin exam: no rashes or lesions noted Neuro General: patient alert, patient awake and patient oriented x3 Cranial Nerves: CN's II-XI intact bilaterally, PERRL and no nystagmus Cognition: normal cognition Gait: normal gait Motor: muscle tone normal throughout and strength 5/5 throughout Sensory Exam: no sensory deficits noted Extrem General: normal to inspection Psych Mental Status: mental status grossly normal Speech and Movement: speech and movement normal Mood: congruent mood Affect: normal affect DS: Data Vitals/I&O Vitals and I&O: Vital Signs Temperature 36.6 C 11/14/23 08:08 Temperature Source Tympanic 11/14/23 08:08 Pulse 68 11/14/23 08:08 Pulse Rhythm Regular 11/14/23 08:40 Pulse 81 11/13/23 16:31 Respiratory Rate 18 11/14/23 08:08 Respiratory Effort Normal, Non-Labored 11/14/23 08:40 Respiratory Depth Normal 11/14/23 08:40 Respiratory Pattern Normal 11/14/23 08:40 Blood Pressure 140/84 11/14/23 08:08 Blood Pressure Mean 107 11/13/23 16:31 Pulse Oximetry 96 11/14/23 08:08 Oxygen Delivery Method Room Air 11/14/23 08:08 Oxygen Flow Rate 0 11/14/23 08:08 Pain Level 10 11/14/23 09:35 Comment Rn Notified 11/13/23 22:26 Intake & Output 06/15/24 06/15/24 06/16/24 11:59 23:59 11:59 Intake Total 1380 / 1380 2019 Output Total 200 / 200 Balance 1380 / 1380 1820 / 1820 Weight 84.5 kg Intake: IV 1380 / 1380 2019 Output: Urine 200 / 200 Other: Urine Color Yellow Yellow Urine Appearance Clear Clear Urine Odor Normal Normal Emesis Description Retching Bile Voiding Methods Toilet Toilet Data Completed and Pending Labs on day of discharge: Labs from last 24 hours 11/14/23 11/14/23 11/14/23 08:00 06:32 06:25 WBC 9.93 RBC 5.10 Hgb 15.5 D Hct 44.1 MCV 87 MCH 30.4 MCHC 35.1 RDW 12.2 Plt Count 261 MPV 9.7 Immature Gran % 0.3 Neutrophils % 69.8 Lymphocytes % 20.7 Monocytes % 6.8 Eosinophils % 1.6 Basophils % 0.8 Nucleated RBC % 0.0 Absolute Neutrophils 6.92 H Absolute Lymphocytes 2.06 Absolute Monocytes 0.68 Absolute Eosinophils 0.16 Absolute Basophils 0.08 Sodium 136 Cancelled Potassium 3.7 Cancelled Chloride 99 Cancelled Carbon Dioxide 28.7 Cancelled Anion Gap 8.3 Cancelled BUN 8 Cancelled Creatinine 0.9 Cancelled Est GFR (CKD-EPI 2020) 75.97 Cancelled Glucose 135 H Cancelled Calcium 9.0 Cancelled Magnesium 1.7 L Cancelled Total Bilirubin 0.4 Cancelled AST 17 Cancelled ALT 33 Cancelled Alkaline Phosphatase 121 H Cancelled Ammonia Creatine Kinase Troponin I Total Protein 7.0 Cancelled Albumin 3.4 Cancelled TSH Urine Color Urine Clarity Urine pH Ur Specific Council Urine Protein Urine Ketones Urine Blood Urine Nitrite Urine Bilirubin Urine Urobilinogen Ur Leukocyte Esterase Urine RBC Urine WBC Ur Epithelial Cells Urine Crystals Urine Bacteria Urine Casts Urine Mucus Urine Other Ur Culture Indicated? Urine Glucose Phenytoin 14.9 Ethyl Alcohol Add-On Test Request 11/14/23 11/13/23 11/13/23 01:52 20:37 17:15 WBC RBC Hgb Hct MCV MCH MCHC RDW Plt Count MPV Immature Gran % Neutrophils % Lymphocytes % Monocytes % Eosinophils % Basophils % Nucleated RBC % Absolute Neutrophils Absolute Lymphocytes Absolute Monocytes Absolute Eosinophils Absolute Basophils Sodium Potassium Chloride Carbon Dioxide Anion Gap BUN Creatinine Est GFR (CKD-EPI 2020) Glucose Calcium Magnesium Total Bilirubin AST ALT Alkaline Phosphatase Ammonia Creatine Kinase 91 Troponin I 127 H* 155 H* Total Protein Albumin TSH Urine Color Urine Clarity Urine pH Ur Specific Council Urine Protein Urine Ketones Urine Blood Urine Nitrite Urine Bilirubin Urine Urobilinogen Ur Leukocyte Esterase Urine RBC Urine WBC Ur Epithelial Cells Urine Crystals Urine Bacteria Urine Casts Urine Mucus Urine Other Ur Culture Indicated? Urine Glucose Phenytoin 13.8 16.1 22.6 H Ethyl Alcohol Add-On Test Request DONE 11/13/23 11/13/23 11/13/23 16:32 14:31 14:15 WBC RBC Hgb Hct MCV MCH MCHC RDW Plt Count MPV Immature Gran % Neutrophils % Lymphocytes % Monocytes % Eosinophils % Basophils % Nucleated RBC % Absolute Neutrophils Absolute Lymphocytes Absolute Monocytes Absolute Eosinophils Absolute Basophils Sodium Potassium Chloride Carbon Dioxide Anion Gap BUN Creatinine Est GFR (CKD-EPI 2020) Glucose Calcium Magnesium Total Bilirubin AST ALT Alkaline Phosphatase Ammonia < 10 L Creatine Kinase Troponin I Cancelled Total Protein Albumin TSH Urine Color Yellow Urine Clarity Clear Urine pH 8.5 H Ur Specific Council 1.025 Urine Protein >=300 H Urine Ketones 15 H Urine Blood Trace-lysed H Urine Nitrite Positive H Urine Bilirubin Negative Urine Urobilinogen 0.2 Ur Leukocyte Esterase Negative Urine RBC 0-2 Urine WBC 10-20 H Ur Epithelial Cells Rare Urine Crystals Negative Urine Bacteria Many Urine Casts 0-2 Hyaline Urine Mucus Negative Urine Other Rare Transitional Ur Culture Indicated? Yes Urine Glucose 500 H Phenytoin Ethyl Alcohol Add-On Test Request 11/13/23 11/13/23 11/13/23 14:09 13:48 13:40 WBC 12.30 H RBC 5.86 H Hgb 17.7 H Hct 49.9 H MCV 85 MCH 30.2 MCHC 35.5 RDW 11.8 Plt Count 359 MPV 9.4 Immature Gran % 0.3 Neutrophils % 86.5 Lymphocytes % 10.1 Monocytes % 2.5 Eosinophils % 0.1 Basophils % 0.5 Nucleated RBC % 0.0 Absolute Neutrophils 10.64 H Absolute Lymphocytes 1.24 Absolute Monocytes 0.31 Absolute Eosinophils 0.01 Absolute Basophils 0.06 Sodium 133 L Potassium 4.0 Chloride 95 L Carbon Dioxide 24.8 Anion Gap 13.2 H BUN 9 Creatinine 0.8 Est GFR (CKD-EPI 2020) 87.50 Glucose 167 H Calcium 9.8 Magnesium 1.5 L Total Bilirubin 0.5 AST 20 ALT 40 Alkaline Phosphatase 148 H Ammonia Creatine Kinase Troponin I Cancelled 68 H* Total Protein 8.8 H Albumin 4.4 TSH 1.08 Urine Color Urine Clarity Urine pH Ur Specific Council Urine Protein Urine Ketones Urine Blood Urine Nitrite Urine Bilirubin Urine Urobilinogen Ur Leukocyte Esterase Urine RBC Urine WBC Ur Epithelial Cells Urine Crystals Urine Bacteria Urine Casts Urine Mucus Urine Other Ur Culture Indicated? Urine Glucose Phenytoin 26.8 H* Ethyl Alcohol Cancelled < 3.0 Add-On Test Request 11/13/23 11/13/23 13:33 13:31 WBC RBC Hgb Hct MCV MCH MCHC RDW Plt Count MPV Immature Gran % Neutrophils % Lymphocytes % Monocytes % Eosinophils % Basophils % Nucleated RBC % Absolute Neutrophils Absolute Lymphocytes Absolute Monocytes Absolute Eosinophils Absolute Basophils Sodium Potassium Chloride Carbon Dioxide Anion Gap BUN Creatinine Est GFR (CKD-EPI 2020) Glucose Calcium Magnesium Total Bilirubin AST ALT Alkaline Phosphatase Ammonia Cancelled Creatine Kinase Troponin I Total Protein Albumin TSH Urine Color Urine Clarity Urine pH Ur Specific Council Urine Protein Urine Ketones Urine Blood Urine Nitrite Urine Bilirubin Urine Urobilinogen Ur Leukocyte Esterase Urine RBC Urine WBC Ur Epithelial Cells Urine Crystals Urine Bacteria Urine Casts Urine Mucus Urine Other Ur Culture Indicated? Urine Glucose Phenytoin Ethyl Alcohol Cancelled Add-On Test Request Preliminary micro results at discharge 11/13/23 14:31 Urine Culture - Preliminary Urine - Reflex from Ua Gram Negative Dewey PFSH All Active Problems (Updated 11/14/23 @ 12:39 by GARY Raymond) Phenytoin toxicity (Acute) Troponin level elevated (Acute) QT prolongation (Acute) Urinary tract infection (Acute) Trigeminal neuralgia pain (Acute) Colon cancer screening (Acute) Medical History Hypertension Anxiety disorder Urge incontinence Heart murmur, systolic Viral meningitis Liver disease Hyperlipidemia Alcohol abuse, in remission in remission for 13 years Cocaine abuse in remission in remission for 13 years History of hepatitis Hep C. pt. states she has been treated in 2004, states she did the Interferon treatment. Family history of chronic ischemic heart disease Family history of diabetes mellitus Tobacco use disorder Benign essential hypertension Onychomycosis Surgical History H/O tubal ligation Normal colonoscopy (~12/2019) Hx of section x2 Hx of cholecystectomy History of appendectomy Family History Mother Diabetes Emphysema lung Coronary artery disease Hypertension Hyperlipidemia Father Heart disease Coronary artery disease Hypertension Hyperlipidemia Sister Heart disease Coronary artery disease Diabetes Stroke Hypertension Hyperlipidemia Social History Smoking/Tobacco Use Status: Current every day Tobacco Type: cigarettes Quit status: quit date established Smoking risk assessment performed?: Yes Alcohol Intake: former Drug use: Current Sobriety Substance use type: former substance user and crack/cocaine Details: 13 years Household members: none Housing: house Number of Children: 0 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
[2023-11-14] MEDS: Normal Saline Flush 10 ML SYR (10:49)
--- NOTE | 2023-11-14 11:12 | CMDISCH_ITS ---
Date of service: 11/14/23 Time of Service: 11:12 LACE Index Scoring Tool Questions: Length of Stay (in days): 1 Was the patient admitted via the E.D.?: Yes E.D. Visits: 2 Answers: Total Score: 6 Risk of Readmission: Low Risk Care Management Discharge Plan Reason for Hospitalization: Phenytoin toxicity Discharge Plan: Swathi is discharged home with a RX for PO ABX. She will be driven by family. Pt will follow up with Primary Care, Neurology and her discharge plan of care as instructed. No new services are ordered at the time of this discharge. Patient/Family Education Needs: Review discharge instructions. limitations, med ications and plan to follow up with community providers. Discuss ask me three. SDOH Health Related Social Needs: No Data to Display
[2023-11-14 11:29] VITALS: PULSE 65
== END 2023-11-14 11:35 | disposition home or self-care (01) ==
LOC: ER 15:41 → MS 16:39
PROVIDERS: Nurse Practitioner Family; Admitting Provider Internal Medicine; Emergency Provider Physician Assistant; PCP Physician Assistant; Visit Provider Internal Medicine
DX: T42.0X1A Poisoning by hydantoin derivatives, accidental (unintentional), initial encounter; K52.1 Toxic gastroenteritis and colitis; N39.0 Urinary tract infection, site not specified; R11.2 Nausea with vomiting, unspecified; G50.0 Trigeminal neuralgia; I10 Essential (primary) hypertension; R94.31 Abnormal electrocardiogram [ECG] [EKG]; R74.8 Abnormal levels of other serum enzymes; F41.9 Anxiety disorder, unspecified; E78.5 Hyperlipidemia, unspecified; F10.11 Alcohol abuse, in remission; F14.11 Cocaine abuse, in remission; F17.210 Nicotine dependence, cigarettes, uncomplicated; K76.9 Liver disease, unspecified; Z79.899 Other long term (current) drug therapy
CPT/HCPCS: 00123; 36410; 36415; 80053; 82550; 87077; 93005; 94640; 96361; 96365; 96366; 96375; 96376; 99291; 80185; 80320; 81003; 81015; 82140; 83735; 84443; 84484; 85025; 87086; 87186; 93010; 94664; 99222; 99238; G0378; J0780; J1170; J2060; J3475

== ENCOUNTER 2023-11-16 04:58 | Outpatient (CLI) | payer MEDICAID, SELFPAY ==
[2023-11-16 14:12] LABS: ALT 39 U/L (14-59); AST 30 U/L (15-37); Albumin 3.8 g/dL (3.4-5.0); Alkaline Phosphatase 129 U/L (46-116); Anion Gap 11.6 mmol/L (3-11); BUN 12 mg/dL (7-18); Bilirubin, Total 0.3 mg/dL (0.2-1.0); CO2 24.4 mmol/L (21.0-32.0); CREATININE 0.8 mg/dL (0.55-1.02); Chloride 103 mmol/L (98-107); Glucose 125 mg/dL (74-106); Potassium 4.1 mmol/L (3.5-5.1); Sodium 139 mmol/L (136-145); Total Protein 7.4 g/dL (6.4-8.2)
[2023-11-18 23:02] LABS: Phenytoin, Free 2.3 mcg/mL (1.0 - 2.0); Phenytoin, Total 11.8 mcg/mL
[2023-11-19 11:34] LABS: Oxcarbazepine Metabolite, S 19 mcg/mL (10 - 35)
== END 2023-11-16 04:59 | disposition home or self-care (01) ==
LOC: LBO 04:59
PROVIDERS: PCP Physician Assistant; Visit Provider Psychiatry & Neurology Neurology
DX: E78.5 Hyperlipidemia, unspecified (principal); I10 Essential (primary) hypertension
CPT/HCPCS: 36415; 80053; 80183; 80186; 80185

== ENCOUNTER 2023-12-06 14:53 | Inpatient (IN) | payer MEDICAID, SELFPAY ==
[2023-12-06] VITALS (83 sets, daily range): BP systolic 105–215; BP diastolic 60–142; PULSE 58–140; RESP 7–40; TEMP 33–36.6; O2SAT 80–99
--- NOTE | 2023-12-06 14:45 | RT.EKG_ITS ---
APPROVED REPORT Exam: Resting ECG Reason for Exam: Chest Pain Patient Location: E HR:69 bpm ECG Measurements Heart Rate 69 AXIS MN 216 P 49 QRSd 95 QRS -30 QT 401 T 68 QTc 431 Conclusion Sinus rhythm...normal P axis, V-rate 60- 99 Prolonged MN interval...MN >210, V-rate 50- 90 Probable left atrial enlargement...P >50mS, <-0.10mV V1 Left axis deviation...QRS axis (-30,-90) Low voltage, precordial leads...precordial leads <1.0mV
--- NOTE | 2023-12-06 15:19 | W.ED.GENAD ---
Discharge Plan Disposition Patient Disposition: Admit to [facility] Condition: Serious Condition: Serious Discharge Details Chief Complaint: Chest Pain Clinical Impression: Non-ST elevation [place] (NSTEMI) Primary Care Provider: Raffi Nolasco ED Provider: Raman Lugo Home Meds and New Rx's Prescriptions: No Action nicotine 14 mg/24 hr patch 24 hour 1 patch TD DAILY PRN varenicline [Chantix] 1 mg tablet 1 mg PO BID Hold Instructions: Pt Stopped/Never Started simvastatin 20 mg tablet 20 mg PO HS albuterol sulfate [ProAir HFA] 90 mcg/actuation HFA aerosol inhaler 2 puff IH Q6H PRN lisinopril 20 mg tablet 30 mg PO DAILY amlodipine 10 mg tablet 10 mg PO DAILY oxybutynin chloride 5 mg tablet 5 mg PO HS sertraline 100 mg tablet 100 mg PO DAILY metoprolol tartrate 50 mg tablet 50 mg PO BID clonazepam 0.5 mg tablet 0.5 mg PO DAILY PRN buspirone 5 mg tablet 5 mg PO BID PRN Hold Instructions: Changed by Provider Patient Comments: TAKE 1 TABLET BY MOUTH TWICE DAILY gabapentin 300 mg capsule 900 mg PO TID Patient Comments: TAKE 3 CAPSULES BY MOUTH THREE TIMES DAILY nortriptyline 10 mg capsule 10 mg PO HS Patient Comments: TAKE 1 CAPSULE BY MOUTH EVERY DAY AT BEDTIME Incruse Ellipta 62.5 mcg/actuation blister with device 1 inh INHALATION DAILY Patient Comments: INHALE 1 PUFF BY MOUTH EVERY DAY phenytoin sodium extended 100 mg capsule 100 mg PO HS Qty: 0 0RF Patient Comments: Previously taking TID, recently changed to once a day at bedtime sulfamethoxazole-trimethoprim [Bactrim DS] 800-160 mg tablet 1 tab PO BID Qty: 6 0RF HPI General Mode of arrival: ambulatory. Date/Time Provider Initiated Documentation: 12/06/23 14:56. Limitations to Documentation: no limitations. Information obtained by: patient. History of Present Illness 53 year old F presents to the emergency department with the chief complaint of chest burnining, described as moderate, Quality is described as burning, Patient started experiencing this hour(s) (2) and it has been constant. No relieving factors improve symptom(s), No exacerbating factors reported . Patient notes denies cough, fever/chills and shortness of breath. Related Data Home Medications Medication Instructions Recorded Confirmed albuterol sulfate 90 mcg/actuation 2 puff inhalation Q6H PRN 06/27/19 11/13/23 aerosol inhaler (ProAir HFA) lisinopril 20 mg tablet 30 mg PO DAILY 06/27/19 11/13/23 simvastatin 20 mg tablet 20 mg PO HS 06/27/19 11/13/23 varenicline 1 mg tablet (Chantix) 1 mg PO BID 06/27/19 11/13/23 nicotine 14 mg/24 hr daily 1 patch transdermal DAILY PRN 08/03/19 11/13/23 transdermal patch amlodipine 10 mg tablet 10 mg PO DAILY 02/04/22 11/13/23 metoprolol tartrate 50 mg tablet 50 mg PO BID 02/04/22 11/13/23 oxybutynin chloride 5 mg tablet 5 mg PO HS 02/04/22 11/13/23 sertraline 100 mg tablet 100 mg PO DAILY 02/04/22 11/13/23 clonazepam 0.5 mg tablet 0.5 mg PO DAILY PRN 04/15/22 11/13/23 buspirone 5 mg tablet 5 mg PO BID PRN 11/01/23 11/13/23 gabapentin 300 mg capsule 900 mg PO TID 11/01/23 11/13/23 nortriptyline 10 mg capsule 10 mg PO HS 11/01/23 11/13/23 umeclidinium 62.5 mcg/actuation 1 inh inhalation DAILY 11/01/23 11/13/23 blister powder for inhalation (Incruse Ellipta) phenytoin sodium extended 100 mg 100 mg PO HS #0 caps 11/14/23 11/13/23 capsule sulfamethoxazole 800 1 tab PO BID #6 tabs 11/14/23 mg-trimethoprim 160 mg tablet (Bactrim DS) Previous Rx's Medication Instructions Recorded phenytoin sodium extended 100 mg 100 mg PO HS #0 caps 11/14/23 capsule sulfamethoxazole 800 1 tab PO BID #6 tabs 11/14/23 mg-trimethoprim 160 mg tablet (Bactrim DS) Allergies Allergy/AdvReac Type Severity Reaction Status Date / Time cefazolin sodium [From [facility]] Allergy Severe Anaphylaxsi Verified 12/06/23 15:04 s codeine Allergy Unknown unknown Verified 12/06/23 15:04 hay fever Allergy Mild Other (See Uncoded 12/06/23 15:04 Comment) General Stated Complaint: Chest Pain LISA: 2 Review of Systems All systems reviewed & are unremarkable except as noted in HPI and below Constitutional Constitutional: Denies chills and Denies fever(s) Cardiovascular Cardiovascular: Denies dyspnea and Reports other (chest burning) Respiratory Respiratory: Denies cough and Denies dyspnea Gastrointestinal Gastrointestinal: Denies abdominal pain, Denies nausea and Denies vomiting Musculoskeletal Musculoskeletal: Denies joint swelling Exam Const General: no acute distress Orientation: alert HENMT Head: normal to inspection Ears: external ears normal General nose exam: external nose normal Mouth: moist mucous membranes Eyes General: appearance normal, both eyes and all related structures Neck Neck: normal visual inspection Resp Effort & Inspection: normal respiratory effort and able to speak in complete sentences Auscultation: clear to auscultation bilaterally Cardio Jugular venous pressure: no JVD Rate: regular rate Heart Sounds: no murmurs GI Palpation: soft and nontender Skin General skin exam: no rashes or lesions noted Neuro General: patient alert and patient oriented x3 Extrem General: normal to inspection Psych Mental Status: mental status grossly normal Course Vital Signs Vital signs: Vital Signs Temperature 36.2 C L 12/06/23 14:59 Pulse 71 12/06/23 14:59 Respiratory Rate 14 12/06/23 14:59 Blood Pressure 191/116 H 12/06/23 14:59 Pulse Oximetry 99 12/06/23 14:59 Temperature 36.2 C L 12/06/23 14:59 Temperature Source Skin 12/06/23 14:59 Pulse 71 12/06/23 14:59 Respiratory Rate 14 12/06/23 14:59 Blood Pressure 191/116 H 12/06/23 14:59 Blood Pressure Position Sitting 12/06/23 14:59 Pulse Oximetry 99 12/06/23 14:59 Oxygen Delivery Method Room Air 12/06/23 14:59 Oxygen Flow Rate 0 12/06/23 14:59 Pain Level 10 12/06/23 14:59 Medical Decision Making 53-year-old female with a history of chronic smoking, trigeminal neuralgia on phenytoin, comes in with approximately 2 hours of a chest burning sensation. She says she has been under a lot of stress recently, was admitted earlier in October in the setting of nausea vomiting and had elevated phenytoin levels as well as mild elevation in her troponins which was thought to be secondary to her nausea and vomiting. She says she has been undergoing a lot of life stressors and today had some chest burning so took some Tums without relief so came here. She denies any tearing back pain, difficulty breathing, leg swelling or calf tenderness. She is alert and oriented on arrival speaking clearly in no distress. She has clear lung sounds, no murmurs, no JVD, no leg swelling, no calf tenderness, equal peripheral pulses. Suspect this could be GERD or esophagitis or related to anxiety/stress. Will check troponins, obtain chest x-ray as well and treat with a GI cocktail and obtain CBC, CMP and lipase. She has no evidence of DVT on exam, no significant tachycardia or hypoxia so doubt PE and also has no tearing back pain and has equal peripheral pulses so doubt dissection. Patient with a troponin over 300, when she was admitted last month did have elevated troponins as well. She is alert and oriented x 4 still, did have an episode of vomiting for which I treated with droperidol. Will obtain delta troponin pt still with chest burning, troponin now over 600, heparin and nitro drip ordered, sublingual didn't help significantly, will try fentanyl. pt feeling improved, spoke with cardiology at [facility] [place] who agrees with heparin and asa, recommends 600mg plavix and 80 mg of atorvastatin as well. They have accepted for transfer accepting provider is Dr. Ron. Patient updated and is agreeable with the plan. transfer center called back and advised they can't take the patient until tomorrow. Patient is feeling anxious currently, ativan orderd. Will discuss with hospitalist about admission until transfer tomorrow Differential Diagnosis Differential Diagnosis: Esophagitis, stress, anxiety, NSTEMI Medical Records Medical records reviewed: Yes I reviewed the patient's medical records. Imaging Data Radiologic Study: Attestation: I personally reviewed and interpreted this imaging study as follows: Imaging: X-Ray Radiologist's impression: Patient Name: Swathi Patten Unit #: [id number] Loc: ER Ordering Provider: Raman Lugo M.D. Status: [facility] ER Primary Care Provider: Raffi Nolasco Date of Exam: 12/06/23 Sex: F Admission Date: 12/06/23 : 1970 Age: 53 Exam(s) XR CHEST 2V PA LATERAL EXAM: XR CHEST 2V PA LATERAL CLINICAL HISTORY: chest pain TECHNIQUE: 2D digital imaging was performed of the chest. Two images were obtained. PA and lateral views were obtained. COMPARISON: CR CHEST 2 VIEWS PA,LAT from 08/26/2008 FINDINGS: MEDIASTINUM: Normal. HEART: Normal. PULMONARY VASCULATURE: There is mild prominence of the pulmonary vasculature. LUNGS: No focal consolidating infiltrates are seen. PLEURAL SPACE: No pleural effusion or pneumothorax. BONE:Within normal limits for the patient's age. OTHER FINDINGS:Normal. IMPRESSION: Mild prominence of the pulmonary vasculature. This may reflect pulmonary venous congestion. Please correlate clinically. No focal consolidating infiltrates are present. Lab Data Lab results reviewed: Yes I reviewed the patient's lab results. ECG Data Attestation: I personally reviewed and interpreted this ECG (s) as follows: Prior ECG tracings: available for review Interpretation: Sinus rhythm, rate of 69, OH 216, no STEMI sinus rate of 85 pr 211 no stemi Quality:SDOH Health Related Social Needs: No Data to Display PFSH All Active Problems (Updated 12/06/23 @ 22:02 by Clayton English) Non-ST elevation [place] (NSTEMI) (Acute) Phenytoin toxicity (Acute) Urinary tract infection (Acute) Trigeminal neuralgia pain (Acute) Colon cancer screening (Acute) Medical History Hypertension Anxiety disorder Urge incontinence Heart murmur, systolic Viral meningitis Liver disease Hyperlipidemia Alcohol abuse, in remission in remission for 13 years Cocaine abuse in remission in remission for 13 years History of hepatitis Hep C. pt. states she has been treated in 2004, states she did the Interferon treatment. Family history of chronic ischemic heart disease Family history of diabetes mellitus Tobacco use disorder Benign essential hypertension Onychomycosis Surgical History H/O tubal ligation Normal colonoscopy (~12/2019) Hx of section x2 Hx of cholecystectomy History of appendectomy Family History Mother Diabetes Emphysema lung Coronary artery disease Hypertension Hyperlipidemia Father Heart disease Coronary artery disease Hypertension Hyperlipidemia Sister Heart disease Coronary artery disease Diabetes Stroke Hypertension Hyperlipidemia Social History Smoking/Tobacco Use Status: Current every day Tobacco Type: cigarettes Quit status: quit date established Smoking risk assessment performed?: Yes Alcohol Intake: former Drug use: Current Sobriety Substance use type: former substance user and crack/cocaine Details: 13 years Household members: none Housing: house Number of Children: 0 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
[2023-12-06 16:21] LABS: Abs Immature Grans 0.02 10^3/uL (0.0-0.06); Absolute Basophil Count 0.08 10^3/uL (0.0-0.2); Absolute Eosinophil Count 0.15 10^3/uL (0.0-0.7); Absolute Lymphocyte Count 1.89 10^3/uL (1.2-3.4); Absolute Monocyte Count 0.48 10^3/uL (0.1-0.8); Absolute Neutrophil Count 5.34 10^3/uL (1.2-6.7); Eosinophils % 1.9 %; HCT 46.3 % (36.0-46.0); HGB 16.2 g/dL (11.2-15.7); Immature Grans % 0.3 %; Lymphocytes % 23.7 %; MCH 29.7 pg (27.0-33.0); MCV 85 fL (80-95); MPV 10.1 fL (8.0-11.0); Neutrophils % 67.1 %; Platelet Count 286 10^3/uL (130-400); RBC 5.45 10^6/uL (3.93-5.22); RDW 12.2 % (11.7-14.6); RDW-SD 37.2 fL; WBC 7.96 10^3/uL (4.4-10.8)
--- NOTE | 2023-12-06 16:21 | DI.RAD_ITS ---
Exam(s) XR CHEST 2V PA LATERAL EXAM: XR CHEST 2V PA LATERAL CLINICAL HISTORY: chest pain TECHNIQUE: 2D digital imaging was performed of the chest. Two images were obtained. PA and lateral views were obtained. COMPARISON: CR CHEST 2 VIEWS PA,LAT from 08/26/2008 FINDINGS: MEDIASTINUM: Normal. HEART: Normal. PULMONARY VASCULATURE: There is mild prominence of the pulmonary vasculature. LUNGS: No focal consolidating infiltrates are seen. PLEURAL SPACE: No pleural effusion or pneumothorax. BONE:Within normal limits for the patient's age. OTHER FINDINGS:Normal. IMPRESSION: Mild prominence of the pulmonary vasculature. This may reflect pulmonary venous congestion. Please correlate clinically. No focal consolidating infiltrates are present. DATA REPOSITORY: RADIATION DOSE DELIVERED:
[2023-12-06 16:42] LABS: PHENYTOIN (DILANTIN) 8.8 ug/mL (10.0-20.0)
[2023-12-06 16:45] LABS: ALT 39 U/L (14-59); AST 23 U/L (15-37); Alkaline Phosphatase 148 U/L (46-116); Anion Gap 11.5 mmol/L (3-11); BUN 12 mg/dL (7-18); Bilirubin, Total 0.34 mg/dL (0.2-1.0); CO2 24.5 mmol/L (21.0-32.0); CREATININE 0.8 mg/dL (0.55-1.02); Calcium 9.3 mg/dL (8.5-10.1); Chloride 101 mmol/L (98-107); Glucose 131 mg/dL (74-106); Lipase 37 U/L (16-77); Potassium 3.9 mmol/L (3.5-5.1); Sodium 137 mmol/L (136-145); TSH (W/Ref FT4) 1.65 uIU/mL (0.36-3.74); Total Protein 7.6 g/dL (6.4-8.2)
[2023-12-06 16:48] LABS: Troponin I 383 ng/L (< or =60)
[2023-12-06] MEDS: Aspirin 81 MG CHEW 324 MG CH (17:21)
--- NOTE | 2023-12-06 17:23 | NUR.NOTE ---
Nursing Note: aware of patients vital signs at this time
[2023-12-06] MEDS: Droperidol 5 MG/2 ML VIAL 2.5 MG IVP (17:32)
--- NOTE | 2023-12-06 17:45 | RT.EKG_ITS ---
APPROVED REPORT Exam: Resting ECG Reason for Exam: pain Patient Location: E HR:85 bpm ECG Measurements Heart Rate 85 AXIS AK 211 P 58 QRSd 104 QRS -48 QT 375 T 83 QTc 446 Conclusion Sinus rhythm...normal P axis, V-rate 60- 99 Prolonged AK interval...AK >210, V-rate 50- 90 Probable left atrial enlargement...P >50mS, <-0.10mV V1 Left anterior fascicular block...axis(240,-40), init forces inf Left ventricular hypertrophy...multiple LVH criteria
[2023-12-06 18:28] LABS: Troponin I 619 ng/L (< or =60)
[2023-12-06] MEDS: fentaNYL 100 MCG/2 ML VIAL 75 MCG IVP (18:51)
[2023-12-06] MEDS: Heparin in 0.45% NaCl 25,000 UNIT/250 ML BAG 10 UNIT IV (19:18)
[2023-12-06] MEDS: nitroGLYcerin in D5W 50 MG/250 ML BTL IV (19:19)
[2023-12-06] MEDS: Clopidogrel 300 MG TAB 600 MG PO (21:07)
[2023-12-06] MEDS: Atorvastatin 40 MG TAB 80 MG PO (21:07)
[2023-12-06 21:12] LABS: INR 1.1 (0.9-1.1)
[2023-12-06] MEDS: LORazepam 2 MG/ML VIAL 1 MG IVP (21:26)
[2023-12-06 21:32] LABS: PTT Activated 112.9 sec (23.6-32.8)
--- NOTE | 2023-12-06 21:57 | W.PM.HP.N ---
Date of service: 12/06/23 Time of Service: 21:57 Assessment and Plan Assessment and plan (1) Non-ST elevation [place] (NSTEMI): Start date: 12/06/23 Status: Acute Assessment and plan: This is a 53-year-old lady presenting presenting with chest burning sensation prompting ED evaluation and found to have elevated troponins which are trending upward. Chest pain did not respond to nitroglycerin sublingually though slightly improved but patient was not pain-free in the ED and upon transfer to the ICU. She was on IV nitroglycerin and heparin infusion and was loaded with Plavix, high-dose atorvastatin and aspirin in the ED. Patient was not pain-free in the ED and this progressed upon arrival to the ICU. Patient is acutely decompensated requiring rapid response (see critical care note). Patient is a full code (2) Anxiety disorder: Assessment and plan: This is complicating the patient's coping with her acute non-STEMI and pulmonary edema. Elevated BNP use along with morphine. Long-term she will return to outpatient medical therapy but should consider counseling. She has had problems self treating with alcohol and cocaine in the past. Qualifiers: Anxiety disorder type: generalized anxiety disorder Qualified Code(s): F41.1 - Generalized anxiety disorder (3) Hypertension: Assessment and plan: Exacerbated with acute decompensation and non-STEMI maximize beta-blockade and continue nitroglycerin infusion Qualifiers: Hypertension type: primary hypertension Qualified Code(s): I10 - Essential (primary) hypertension (4) Hyperlipidemia: Assessment and plan: High-dose atorvastatin with acute non-STEMI Qualifiers: Hyperlipidemia type: mixed hyperlipidemia Qualified Code(s): E78.2 - Mixed hyperlipidemia (5) Tobacco use disorder: Assessment and plan: Long-term patient should stop smoking and acutely will have rescue albuterol nebulizers with BiPAP to maintain adequate oxygenation at this time and oxygen supplementation without evidence of pCO2 elevation. Patient does have COPD on outpatient therapy as well. History of Present Illness History of Present Illness Chief Complaint: Acute onset of burning chest pain Narrative: This is a 53-year-old female patient with a history of smoking daily, trigeminal neuralgia on Dilantin visit was overdosed on medication requiring hospitalization, COPD on inhalers and hypertension presented to the ED with a 2-hour history burning sensation in her chest retrosternally with radiation of the discomfort into her left arm with numbness. The discomfort was graded as 5 out of 10 and did not respond to nitroglycerin sublingually. She was hypertensive and was started on nitroglycerin infusion for blood pressure control while being loaded with Plavix and aspirin because an elevated troponin of over 300 and then delta measurement over 600 with no acute EKG changes. [place] [facility] [place] guided this initiation of therapy accepting patient to cardiac service once bed available in the morning to Dr Ron's service. She was given a GI cocktail but no other analgesics ED though fentanyl was entertained. She was never pain-free in the ED and metoprolol p.o. was ordered but never given. She remained hypertensive and was feeling progressively short of breath and anxious. She was transferred to the ICU with slowly deteriorating status and plans were [place] [facility] [place] sooner [place] if she worsened. She is a full code. Review of Systems Narrative: 13 point review system positive for patient being anxious with increased stress otherwise unrevealing as per HPI. PFSH All Active Problems (Updated 12/06/23 @ 22:02 by Clayton English) Non-ST elevation [place] (NSTEMI) (Acute) Phenytoin toxicity (Acute) Urinary tract infection (Acute) Trigeminal neuralgia pain (Acute) Colon cancer screening (Acute) Medical History Hypertension Anxiety disorder Urge incontinence Heart murmur, systolic Viral meningitis Liver disease Hyperlipidemia Alcohol abuse, in remission in remission for 13 years Cocaine abuse in remission in remission for 13 years History of hepatitis Hep C. pt. states she has been treated in 2004, states she did the Interferon treatment. Family history of chronic ischemic heart disease Family history of diabetes mellitus Tobacco use disorder Benign essential hypertension Onychomycosis Surgical History H/O tubal ligation Normal colonoscopy (~12/2019) Hx of section x2 Hx of cholecystectomy History of appendectomy Family History Mother Diabetes Emphysema lung Coronary artery disease Hypertension Hyperlipidemia Father Heart disease Coronary artery disease Hypertension Hyperlipidemia Sister Heart disease Coronary artery disease Diabetes Stroke Hypertension Hyperlipidemia Social History Smoking/Tobacco Use Status: Current every day Tobacco Type: cigarettes Quit status: quit date established Smoking risk assessment performed?: Yes Alcohol Intake: former Drug use: Current Sobriety Substance use type: former substance user and crack/cocaine Details: 13 years Household members: none Housing: house Number of Children: 0 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 What is your relationship status?: Panel score (0-1 are the most socially isolated patients): 0 Do you feel safe at home: Yes Do you feel safe in your relationship?: Yes Meds Allergies and Home Medications Allergies Allergy/AdvReac Type Severity Reaction Status Date / Time cefazolin sodium [From [facility]] Allergy Severe Anaphylaxsi Verified 12/06/23 15:04 s codeine Allergy Unknown unknown Verified 12/06/23 15:04 hay fever Allergy Mild Other (See Uncoded 12/06/23 15:04 Comment) Home Medications Medication Instructions Recorded Confirmed Type albuterol sulfate 90 mcg/actuation 2 puff inhalation Q6H PRN 06/27/19 11/13/23 History aerosol inhaler (ProAir HFA) lisinopril 20 mg tablet 30 mg PO DAILY 06/27/19 11/13/23 History simvastatin 20 mg tablet 20 mg PO HS 06/27/19 11/13/23 History varenicline 1 mg tablet (Chantix) 1 mg PO BID 06/27/19 11/13/23 History nicotine 14 mg/24 hr daily 1 patch transdermal DAILY PRN 08/03/19 11/13/23 History transdermal patch amlodipine 10 mg tablet 10 mg PO DAILY 02/04/22 11/13/23 History metoprolol tartrate 50 mg tablet 50 mg PO BID 02/04/22 11/13/23 History oxybutynin chloride 5 mg tablet 5 mg PO HS 02/04/22 11/13/23 History sertraline 100 mg tablet 100 mg PO DAILY 02/04/22 11/13/23 History clonazepam 0.5 mg tablet 0.5 mg PO DAILY PRN 04/15/22 11/13/23 History buspirone 5 mg tablet 5 mg PO BID PRN 11/01/23 11/13/23 History gabapentin 300 mg capsule 900 mg PO TID 11/01/23 11/13/23 History nortriptyline 10 mg capsule 10 mg PO HS 11/01/23 11/13/23 History umeclidinium 62.5 mcg/actuation 1 inh inhalation DAILY 11/01/23 11/13/23 History blister powder for inhalation (Incruse Ellipta) phenytoin sodium extended 100 mg 100 mg PO HS #0 caps 11/14/23 11/13/23 Rx capsule sulfamethoxazole 800 1 tab PO BID #6 tabs 11/14/23 Rx mg-trimethoprim 160 mg tablet (Bactrim DS) Exam Narrative Exam Narrative: General: Patient appears older than stated age, mildly obese, alert and oriented x 3 in moderate distress being anxious and evidence of chest discomfort HEENT: Normocephalic, with pupils equal and react to light symmetrically, extraocular movement sclera anicteric. Oropharynx with moist mucosa. Neck: Supple without JVD. Back: Kyphotic without CVA tenderness. Lungs: Breath diffusely with no focalizing rales or rhonchi. Patient slightly tachypneic. No expiratory wheeze. Breast: Exam deferred. Heart: Tachycardic with regular rhythm. No appreciable murmur or gallop. Abdomen: Obese contour, soft and nontender to palpation with no palpable hepatosplenomegaly. Bowel sounds are positive in all quadrants. Genitalia/rectal: Exam deferred. Extremities: Nonpitting edema with no clubbing or cyanosis. Good capillary refill. Neuro: Cranial nerves II to XII gross intact, no focalizing motor deficits. No tremor. Psych: Anxious with depressed mood. No abnormal processes. Remote and recent memory intact. Results Imaging Imaging Studies: EXAM: XR CHEST 2V PA LATERAL CLINICAL HISTORY: chest pain TECHNIQUE: 2D digital imaging was performed of the chest. Two images were obtained. PA and lateral views were obtained. COMPARISON: CR CHEST 2 VIEWS PA,LAT from 08/26/2008 FINDINGS: MEDIASTINUM: Normal. HEART: Normal. PULMONARY VASCULATURE: There is mild prominence of the pulmonary vasculature. LUNGS: No focal consolidating infiltrates are seen. PLEURAL SPACE: No pleural effusion or pneumothorax. BONE:Within normal limits for the patient's age. OTHER FINDINGS:Normal. IMPRESSION: Mild prominence of the pulmonary vasculature. This may reflect pulmonary venous congestion. Please correlate clinically. No focal consolidating infiltrates are present. Labs 12/06/23 16:10 12/06/23 16:10 Labs: Laboratory Results - last 24 hr 12/06/23 12/06/23 12/06/23 16:10 16:40 17:57 WBC 7.96 RBC 5.45 H Hgb 16.2 H Hct 46.3 H MCV 85 MCH 29.7 MCHC 35.0 RDW 12.2 Plt Count 286 MPV 10.1 Immature Gran % 0.3 Neutrophils % 67.1 Lymphocytes % 23.7 Monocytes % 6.0 Eosinophils % 1.9 Basophils % 1.0 Nucleated RBC % 0.0 Absolute Neutrophils 5.34 Absolute Lymphocytes 1.89 Absolute Monocytes 0.48 Absolute Eosinophils 0.15 Absolute Basophils 0.08 PT Cancelled INR Cancelled APTT Sodium 137 Potassium 3.9 Chloride 101 Carbon Dioxide 24.5 Anion Gap 11.5 H BUN 12 Creatinine 0.8 Est GFR (CKD-EPI 2020) 87.50 Glucose 131 H Calcium 9.3 Total Bilirubin 0.34 AST 23 ALT 39 Alkaline Phosphatase 148 H Troponin I 383 H* 619 H* Total Protein 7.6 Albumin 4.0 Lipase 37 TSH 1.65 Phenytoin 8.8 L 12/06/23 12/06/23 19:46 20:52 WBC RBC Hgb Hct MCV MCH MCHC RDW Plt Count MPV Immature Gran % Neutrophils % Lymphocytes % Monocytes % Eosinophils % Basophils % Nucleated RBC % Absolute Neutrophils Absolute Lymphocytes Absolute Monocytes Absolute Eosinophils Absolute Basophils PT Cancelled 11.0 INR Cancelled 1.1 APTT Cancelled 112.9 H* Sodium Potassium Chloride Carbon Dioxide Anion Gap BUN Creatinine Est GFR (CKD-EPI 2020) Glucose Calcium Total Bilirubin AST ALT Alkaline Phosphatase Troponin I Total Protein Albumin Lipase TSH Phenytoin Last Vital Signs Temp 36.2 C L 12/06/23 14:59 Pulse 91 H 12/06/23 19:53 Resp 20 12/06/23 20:00 BP 163/101 H 12/06/23 19:53 Pulse Ox 91 L 12/06/23 20:00 Time Spent Time spent with Patient: >75 minutes Time was spent: preparing to see the patient(eg.review tests), obtaining and/or reviewing separately otained hiistory, ordering medications,tests, procedures, referring, communicating with other health nurse healthcare manager, indepentently interpreting results and care coordination
--- NOTE | 2023-12-06 22:34 | W.PCEDHO ---
Registration Status: REG ER Primary Language: Preferred Language: Lao ED Information & Data Chief Complaint Chest Pain 12/06/23 16:14 Chief Complaint Chest Pain 12/06/23 15:23 Triage Note Pt arrives to ED c/o of CP 12/06/23 14:59 that radiates down her LT arm. Pt states the pain started around 1330 today. Pt took TUMS thinking it was indigestion but that has not helped. Medical / Surgical History (Last Reviewed 12/06/23 @ 21:58 by Clayton English) Hypertension Anxiety disorder Urge incontinence Heart murmur, systolic Viral meningitis Liver disease Hyperlipidemia Alcohol abuse, in remission Cocaine abuse in remission History of hepatitis Family history of chronic ischemic heart disease Family history of diabetes mellitus Tobacco use disorder Benign essential hypertension Onychomycosis (Last Reviewed 12/06/23 @ 21:58 by Clayton English) H/O tubal ligation Normal colonoscopy (~12/2019) Hx of section Hx of cholecystectomy History of appendectomy Most Recent Vital Signs Temperature 36.2 C L 12/06/23 14:59 Temperature Source Skin 12/06/23 14:59 Pulse 91 H 12/06/23 19:53 Pulse 93 H 12/06/23 20:00 Respiratory Rate 20 12/06/23 20:00 Respiratory Effort Normal 12/06/23 16:14 Respiratory Depth Normal 12/06/23 16:14 Respiratory Pattern Normal 12/06/23 16:14 Blood Pressure 163/101 H 12/06/23 19:53 Blood Pressure Mean 112 12/06/23 19:53 Blood Pressure Position Sitting 12/06/23 14:59 Pulse Oximetry 91 L 12/06/23 20:00 Oxygen Delivery Method Room Air 12/06/23 14:59 Oxygen Flow Rate 0 12/06/23 14:59 Pain Level 10 12/06/23 14:59 Allergies cefazolin sodium [From Anc] Allergy (Severe, Verified 12/06/23 15:04) Anaphylaxsis codeine Allergy (Unknown, Verified 12/06/23 15:04) unknown Hives at one time hay fever Allergy (Mild, Uncoded 12/06/23 15:04) Other (See Comment) itchy watery eyes Precautions Isolation Standard precaution 12/06/23 16:14 Active Medications Generic Name Dose Route Start Last Admin Trade Name Freq PRN Reason Stop Dose Admin Nitroglycerin/Dextrose 50 mg in 250 mls @ 1.5 mls/hr 12/06/23 18:45 12/06/23 21:31 IV 30 mcg/min INFUSION RICHARD 9 mls/hr Titration Protocol 5 MCG/MIN Heparin Sodium/Sodium Chloride 25,000 unit in 250 mls @ 10 mls/hr 12/06/23 18:45 12/06/23 19:18 IV 1,000 units/hr INFUSION RICHARD 10 mls/hr Administration Protocol 1,000 UNITS/HR Nitroglycerin 0.3 mg 12/06/23 17:47 12/06/23 18:17 Nitroglycerin 0.3 Mg Tab SL 0.3 mg Q5 MIN PRN X3 PRN Administration IV IV Catheter Type [] Saline Lock IV Catheter Type [Right Saline Lock Forearm] IV Catheter Type [Right Saline Lock Antecubital] IV Catheter Type [Left Saline Lock Antecubital] IV Catheter Gauge [] 20 IV Catheter Gauge [Right 20 Forearm] IV Catheter Gauge [Right 20 Antecubital] IV Catheter Gauge [Left 18 Antecubital] Diet Orders Category Date Time Status Heart Healthy Eating [DIET] Nutrition 12/07/23 Breakfast Ordered Diagnostics 12/06/23 12/06/23 12/06/23 Range/Units 22:04 21:46 20:52 WBC (4.4-10.8) 10^3/uL RBC (3.93-5.22) 10^6/uL Hgb (11.2-15.7) g/dL Hct (36.0-46.0) % MCV (80-95) fL MCH (27.0-33.0) pg MCHC (32.0-36.0) % RDW (11.7-14.6) % Plt Count (130-400) 10^3/uL MPV (8.0-11.0) fL Immature Gran % % Neutrophils % % Lymphocytes % % Monocytes % % Eosinophils % % Basophils % % Nucleated RBC % (0.0-0.3) % Absolute Neutrophils (1.2-6.7) 10^3/uL Absolute Lymphocytes (1.2-3.4) 10^3/uL Absolute Monocytes (0.1-0.8) 10^3/uL Absolute Eosinophils (0.0-0.7) 10^3/uL Absolute Basophils (0.0-0.2) 10^3/uL PT 11.0 INR 1.1 APTT 112.9 H* Sodium (136-145) mmol/L Potassium (3.5-5.1) mmol/L Chloride (98-107) mmol/L Carbon Dioxide (21.0-32.0) mmol/L Anion Gap (3-11) mmol/L BUN (7-18) mg/dL Creatinine (0.55-1.02) mg/dL Est GFR (CKD-EPI 2020) (mL/min/1.73m2) Glucose (74-106) mg/dL Calcium (8.5-10.1) mg/dL Total Bilirubin (0.2-1.0) mg/dL AST (15-37) U/L ALT (14-59) U/L Alkaline Phosphatase (46-116) U/L Troponin I Pending Cancelled (< or =60) ng/L Total Protein (6.4-8.2) g/dL Albumin (3.4-5.0) g/dL Lipase (16-77) U/L TSH Pending (0.36-3.74) uIU/mL Phenytoin (10.0-20.0) ug/mL 12/06/23 12/06/23 12/06/23 Range/Units 19:46 17:57 16:40 WBC (4.4-10.8) 10^3/uL RBC (3.93-5.22) 10^6/uL Hgb (11.2-15.7) g/dL Hct (36.0-46.0) % MCV (80-95) fL MCH (27.0-33.0) pg MCHC (32.0-36.0) % RDW (11.7-14.6) % Plt Count (130-400) 10^3/uL MPV (8.0-11.0) fL Immature Gran % % Neutrophils % % Lymphocytes % % Monocytes % % Eosinophils % % Basophils % % Nucleated RBC % (0.0-0.3) % Absolute Neutrophils (1.2-6.7) 10^3/uL Absolute Lymphocytes (1.2-3.4) 10^3/uL Absolute Monocytes (0.1-0.8) 10^3/uL Absolute Eosinophils (0.0-0.7) 10^3/uL Absolute Basophils (0.0-0.2) 10^3/uL PT Cancelled Cancelled INR Cancelled Cancelled APTT Cancelled Sodium (136-145) mmol/L Potassium (3.5-5.1) mmol/L Chloride (98-107) mmol/L Carbon Dioxide (21.0-32.0) mmol/L Anion Gap (3-11) mmol/L BUN (7-18) mg/dL Creatinine (0.55-1.02) mg/dL Est GFR (CKD-EPI 2020) (mL/min/1.73m2) Glucose (74-106) mg/dL Calcium (8.5-10.1) mg/dL Total Bilirubin (0.2-1.0) mg/dL AST (15-37) U/L ALT (14-59) U/L Alkaline Phosphatase (46-116) U/L Troponin I 619 H* (< or =60) ng/L Total Protein (6.4-8.2) g/dL Albumin (3.4-5.0) g/dL Lipase (16-77) U/L TSH (0.36-3.74) uIU/mL Phenytoin (10.0-20.0) ug/mL 12/06/23 Range/Units 16:10 WBC 7.96 (4.4-10.8) 10^3/uL RBC 5.45 H (3.93-5.22) 10^6/uL Hgb 16.2 H (11.2-15.7) g/dL Hct 46.3 H (36.0-46.0) % MCV 85 (80-95) fL MCH 29.7 (27.0-33.0) pg MCHC 35.0 (32.0-36.0) % RDW 12.2 (11.7-14.6) % Plt Count 286 (130-400) 10^3/uL MPV 10.1 (8.0-11.0) fL Immature Gran % 0.3 % Neutrophils % 67.1 % Lymphocytes % 23.7 % Monocytes % 6.0 % Eosinophils % 1.9 % Basophils % 1.0 % Nucleated RBC % 0.0 (0.0-0.3) % Absolute Neutrophils 5.34 (1.2-6.7) 10^3/uL Absolute Lymphocytes 1.89 (1.2-3.4) 10^3/uL Absolute Monocytes 0.48 (0.1-0.8) 10^3/uL Absolute Eosinophils 0.15 (0.0-0.7) 10^3/uL Absolute Basophils 0.08 (0.0-0.2) 10^3/uL PT INR APTT Sodium 137 (136-145) mmol/L Potassium 3.9 (3.5-5.1) mmol/L Chloride 101 (98-107) mmol/L Carbon Dioxide 24.5 (21.0-32.0) mmol/L Anion Gap 11.5 H (3-11) mmol/L BUN 12 (7-18) mg/dL Creatinine 0.8 (0.55-1.02) mg/dL Est GFR (CKD-EPI 2020) 87.50 (mL/min/1.73m2) Glucose 131 H (74-106) mg/dL Calcium 9.3 (8.5-10.1) mg/dL Total Bilirubin 0.34 (0.2-1.0) mg/dL AST 23 (15-37) U/L ALT 39 (14-59) U/L Alkaline Phosphatase 148 H (46-116) U/L Troponin I 383 H* (< or =60) ng/L Total Protein 7.6 (6.4-8.2) g/dL Albumin 4.0 (3.4-5.0) g/dL Lipase 37 (16-77) U/L TSH 1.65 (0.36-3.74) uIU/mL Phenytoin 8.8 L (10.0-20.0) ug/mL Intake and Output - 24 Hour Total 12/06/23 14:53 thru 12/06/23 21:31 Intake Total 5.125 Balance 5.125 Weight 87.09 kg Intake: IV 5.125 Falls Risk Assessment History of Falls No History 12/06/23 16:14 Contributing Factors No Factors 12/06/23 16:14 Ambulatory Aids Independent 12/06/23 16:14 Tubes/Lines None 12/06/23 16:14 Gait Evaluation No gait disturbance 12/06/23 16:14 Cognition No cognitive impairment 12/06/23 16:14 Fall Total Score 0 12/06/23 16:14 Level of Risk Standard/Low Risk 12/06/23 16:14 Problems (Last Reviewed 12/06/23 @ 21:58 by Clayton English) Non-ST elevation [place] (NSTEMI) (Acute) Notes 12/06/23 17:23 Nursing Notes by Carmen Armstrong Nursing Note: aware of patients vital signs at this time Initialized on 12/06/23 17:23 - END OF NOTE v v v v v v v v v Sending and/or Receiving Nurses: Please use comment section below to note any information pertinent to the patient hand-off not included above. Information / Comments: Report received from: Jose HELLER
[2023-12-06 23:15] LABS: TSH 2.91 uIU/Ml (0.36-3.74)
--- NOTE | 2023-12-06 23:15 | RT.EKG_ITS ---
APPROVED REPORT Exam: Resting ECG Reason for Exam: chest pain Patient Location: I HR:104 bpm ECG Measurements Heart Rate 104 AXIS NH 210 P 21 QRSd 94 QRS -41 QT 352 T 118 QTc 463 Conclusion Sinus tachycardia...rate> 99 Prolonged NH interval...NH >205, V-rate 91-120 Probable left atrial enlargement...P >50mS, <-0.10mV V1 Left axis deviation...QRS axis (-30,-90) Abnormal R-wave progression, early transition...QRS area>0 in V2 Consider anterior infarct...Q >30mS in V2-V5 Nonspecific T abnormalities, lateral leads...T <-0.10mV, I aVL V5 V6 Minimal ST elevation, lateral leads...ST >0.06mV, I aVL V5 V6 Baseline wander in lead(s) V6
--- NOTE | 2023-12-06 23:15 | DI.RAD_ITS ---
Exam(s) XR PORTABLE CHEST AP EXAM: XR PORTABLE CHEST AP CLINICAL HISTORY: chest pain/acute TECHNIQUE: 2D digital imaging was performed. COMPARISON: CR XR CHEST 2V PA LATERAL from 12/06/2023 FINDINGS: Exam limited by overlying monitoring leads. LUNGS: Increased interstitial markings could indicate pulmonary edema. No focal infiltrate. No pleu ral abnormality seen. HEART: Normal size. AORTA: Normal diameter. BONES: Unremarkable for age. Soft tissues: Unremarkable. IMPRESSION: Pulmonary edema. DATA REPOSITORY: RADIATION DOSE DELIVERED:
[2023-12-06 23:16] LABS: Troponin I 1614 ng/L (< or =60)
[2023-12-07] VITALS (38 sets, daily range): BP systolic 89–160; BP diastolic 67–124; PULSE 81–165; RESP 16–37; O2SAT 80–98
--- NOTE | 2023-12-07 | RT.EKG_ITS ---
APPROVED REPORT Exam: Resting ECG Reason for Exam: chest pain Patient Location: I HR:116 bpm ECG Measurements Heart Rate 116 AXIS [place] 175 P 47 QRSd 111 QRS -43 QT 326 T 127 QTc 453 Conclusion Sinus tachycardia...rate> 99 Probable left atrial enlargement...P >50mS, <-0.10mV V1 Left axis deviation...QRS axis (-30,-90) Probable anterior infarct, acute...ST >0.15mV, upright T, V2-V5 ST elevation, consider inferior injury...ST >0.08mV, II III aVF Lateral leads are also involved...lat Q or ST-T abnormalities
[2023-12-07] MEDS: MORPHine 4 MG/ML SYR IVP ×2 (00:02→00:28)
[2023-12-07] MEDS: Metoprolol 5 MG/5 ML VIAL 10 MG IVP ×2 (00:03→00:28)
[2023-12-07] MEDS: Furosemide 100 MG/10 ML VIAL 80 MG IVP (00:04)
[2023-12-07] MEDS: LORazepam 2 MG/ML VIAL IVP (00:04)
[2023-12-07 00:05] LABS: pH (Venous) 7.26 (7.31-7.41)
[2023-12-07 00:06] LABS: BE (Venous) -9 mmol/L (-2-3); HCO3 (Venous) 18 mmol/L (23-28); O2 Sat (Venous) 84 %; TCO2 (Venous) 19 mmol/L (24-29); pCO2 (Venous) 40 mmHg (41-51); pO2 (Venous) 56 mmHg
[2023-12-07 00:24] LABS: Magnesium 1.7 mg/dL (1.8-2.4)
[2023-12-07] MEDS: Albuterol/Ipratropium 3 ML UPD VIAL UPD (00:27)
[2023-12-07 00:34] LABS: Troponin I 1705 ng/L (< or =60)
[2023-12-07 00:36] LABS: NT-proBNP 1391 pg/mL (<300)
[2023-12-07] MEDS: Furosemide 40 MG/4 ML VIAL IVP (00:36)
--- NOTE | 2023-12-07 01:04 | DI.VRAD_ITS ---
PROCEDURE INFORMATION: Exam: XR Chest Exam date and time: 12/06/2023 11:48 PM Age: 53 years old Clinical indication: Other: Acute chest pain TECHNIQUE: Imaging protocol: Radiologic exam of the chest. Views: 1 view. COMPARISON: CR XR CHEST 2V PA LATERAL 12/06/2023 4:20 PM FINDINGS: Lungs: No focal parenchymal mass or consolidation is detected. Pleural spaces: No pneumothorax or large pleural effusion is seen. Heart/Mediastinum: Heart size is normal and there is interval development of vascular congestion and indistinctness of vessel margins with suspected interstitial edema suggesting congestive failure/fluid overload. Bones/joints: No acute osseous lesions are detected. IMPRESSION: Interval development of vascular congestion and indistinctness of vessel margins with suspected interstitial edema suggesting congestive failure/fluid overload. No focal parenchymal mass or consolidation detected. Dictated and Authenticated by: Mati Luis MD. Ordering:ESTHER Arnold MD
--- NOTE | 2023-12-07 01:58 | DSE_ITS ---
Date of service: 12/07/23 Time of Service: 02:08 DS: Diagnosis Discharge Diagnosis (1) Non-ST elevation [place] (NSTEMI): Start date: 12/06/23 Status: Acute Asessment and Plan: See H&P and discharge summary. Patient is being transferred for planned cardiac catheterization. She is a full code (2) Anxiety disorder: Asessment and Plan: Continue Ativan as needed. Long-term patient needs counseling as well as continued medical therapy. (3) Hypertension: Asessment and Plan: Stabilizing with medical therapy on IV metoprolol. (4) Hyperlipidemia: Asessment and Plan: Continue high-dose atorvastatin. (5) Tobacco use disorder: Asessment and Plan: Long-term patient should stop smoking. Continue respiratory treatment once discharged and stabilized cardiovascularly at [facility]. Discharge Plan Disposition Patient Disposition: Transfer-Acute Inpatient Care Specific Acute Inpt Facility: [facility] Condition: Serious Discharge Details Reason For Visit: NSTEMI Admit Date/Time: 12/06/23 22:07 Admit Provider: Clayton English Attending Provider: Clayton English Primary Care Provider: Raffi Nolasco Hospital Course Hospital Course: See H&P for details admission status which quickly deteriorated once patient arrived to the ICU. She had had progressive discomfort in her chest with radiation into the arm and became acutely diaphoretic with tachycardia and worsening hypertension with physical exam and chest x-ray along with her acute hypoxemia confirmed flash pulmonary edema. Repeat EKG did not show acute perez ges anteriorly and very with ST segment elevations but true STEMI. The patient was given IV Lasix 80 mg and 40 mg with diuresis of 500 cc of urine over 1 hour. She also was given morphine 4 mg IV x 2 1 hour apart with Ativan 2 mg and her nitroglycerin infusion was titrated as up to 60 mcg/min. Patient was hypoxic on high flow O2 and was placed on BiPAP with better oxygenation which also helped with tachypnea and tachycardia. She was also less hypertensive with metoprolol 10 mg IV x 2 and aggressive treatment of her respiratory distress with high flow oxygen and then BiPAP with 100 percent FiO2. Patient troponin was repeated and did elevate up to 1600 and then 1700 one hour later, appearing to plateau with patient stabilizing. [facility] cardiology was called back with the patient's decompensation and did accept the patient immediately with transfer to cardiac ICU under Dr Maldonado's service for stabilization and then cardiac catheterization being planned immediately. The patient was arranged for transfer via ground transport with BiPAP and continued IV heparin and IV nitroglycerin. She is a full code with ACLS protocol. Home Meds and New Rx's Prescriptions: No Action nicotine 14 mg/24 hr patch 24 hour 1 patch TD DAILY PRN varenicline [Chantix] 1 mg tablet 1 mg PO BID Hold Instructions: Pt Stopped/Never Started simvastatin 20 mg tablet 20 mg PO HS albuterol sulfate [ProAir HFA] 90 mcg/actuation HFA aerosol inhaler 2 puff IH Q6H PRN lisinopril 20 mg tablet 30 mg PO DAILY amlodipine 10 mg tablet 10 mg PO DAILY oxybutynin chloride 5 mg tablet 5 mg PO HS sertraline 100 mg tablet 100 mg PO DAILY metoprolol tartrate 50 mg tablet 50 mg PO BID clonazepam 0.5 mg tablet 0.5 mg PO DAILY PRN buspirone 5 mg tablet 5 mg PO BID PRN Hold Instructions: Changed by Provider Patient Comments: TAKE 1 TABLET BY MOUTH TWICE DAILY gabapentin 300 mg capsule 900 mg PO TID Patient Comments: TAKE 3 CAPSULES BY MOUTH THREE TIMES DAILY nortriptyline 10 mg capsule 10 mg PO HS Patient Comments: TAKE 1 CAPSULE BY MOUTH EVERY DAY AT BEDTIME Incruse Ellipta 62.5 mcg/actuation blister with device 1 inh INHALATION DAILY Patient Comments: INHALE 1 PUFF BY MOUTH EVERY DAY phenytoin sodium extended 100 mg capsule 100 mg PO HS Qty: 0 0RF Patient Comments: Previously taking TID, recently changed to once a day at bedtime sulfamethoxazole-trimethoprim [Bactrim DS] 800-160 mg tablet 1 tab PO BID Qty: 6 0RF Discharge Instructions Activity:: Bedrest in transport Equipment/Supplies:: BiPAP with 100% FiO2 Diet:: NPO DS: Summary Time Spent with Patient providing and/or coordinating discharge services: Greater than 30 minutes Status at Discharge Functional status at discharge: bed bound Overall status at discharge: other (Acute respiratory distress and critical stabilizing on BiPAP) Mental Status: other (Anxious and sedated but able to answer questions appropriately) Speech and Movement: restless (With slightly slurred speech being sedated) Mood: other (Anxious and sedated but able to answer questions appropriately) Affect: anxious affect Quality:SDOH Health Related Social Needs: No Data to Display Referrals and interventions: rapid response after pt arrived to the unit Exam Narrative Exam Narrative: Patient decompensated with increased expiratory phase with slight diffuse expiratory wheeze but it is expiratory coarse crackles and tachypnea with some struggling as well as able to speak in clear sentences. Tachycardic and her skin was diaphoretic and cool, rest of exam is unchanged. As she improved respiratory status, patient is able to speak more closely. Patient was very anxious at the peak of her respiratory distress, improving with morphine and Ativan. Psych Mental Status: other (Anxious and sedated but able to answer questions appropriately) Speech and Movement: restless (With slightly slurred speech being sedated) Mood: other (Anxious and sedated but able to answer questions appropriately) Affect: anxious affect DS: Data Vitals/I&O Vitals and I&O: Vital Signs Temperature 36.2 C L 12/06/23 23:10 Temperature Source Tympanic 12/06/23 23:10 Pulse 81 12/07/23 01:23 Pulse 91 H 12/07/23 01:23 Respiratory Rate 25 H 12/07/23 01:23 Respiratory Effort Short of Breath, Incrsd Work of Breathing 12/06/23 23:24 Respiratory Depth Shallow 12/06/23 23:10 Respiratory Pattern Normal 12/06/23 16:14 Blood Pressure 91/77 L 12/07/23 01:23 Blood Pressure Mean 83 12/07/23 01:23 Blood Pressure Position Sitting 12/06/23 14:59 Pulse Oximetry 98 12/07/23 01:23 Oxygen Delivery Method Non-Rebreather 12/07/23 00:27 Oxygen Flow Rate 15 12/07/23 00:27 Fraction of Inspired Oxygen (FIO2) 100 12/07/23 00:30 Pain Level 10 12/06/23 14:59 Intake & Output 12/06/23 12/06/23 12/07/23 11:59 23:59 11:59 Intake Total . / 92.80 / 92.80 Output Total 500 / 500 Balance . / -407.20 / -407.20 Weight 82.2 kg Intake: IV . / 92.80 / 92.80 Output: Urine 500 / 500 Other: Urine Color Straw Urine Appearance Clear Comment burris placed during rapid response Data Completed and Pending Labs on day of discharge: Labs from last 24 hours 12/07/23 12/06/23 12/06/23 05:35 23:57 22:42 WBC Pending RBC Pending Hgb Pending Hct Pending MCV Pending MCH Pending MCHC Pending RDW Pending Plt Count Pending MPV Pending Immature Gran % Neutrophils % Lymphocytes % Monocytes % Eosinophils % Basophils % Nucleated RBC % Absolute Neutrophils Absolute Lymphocytes Absolute Monocytes Absolute Eosinophils Absolute Basophils PT INR APTT 45.0 H VBG pH 7.26 L VBG pCO2 40 L VBG pO2 56 VBG HCO3 18 L VBG Total CO2 19 L VBG O2 Saturation 84 VBG Base Excess -9 L Sodium Pending Potassium Pending Chloride Pending Carbon Dioxide Pending Anion Gap Pending BUN Pending Creatinine Pending Est GFR (CKD-EPI 2020) Pending Glucose Pending Calcium Pending Magnesium 1.7 L Total Bilirubin Pending AST Pending ALT Pending Alkaline Phosphatase Pending Troponin I 1705 H* 1614 H* NT-Pro-B Natriuret Pep 1391 H Total Protein Pending Albumin Pending Lipase TSH 2.91 Phenytoin 12/06/23 12/06/23 12/06/23 21:46 20:52 19:46 WBC RBC Hgb Hct MCV MCH MCHC RDW Plt Count MPV Immature Gran % Neutrophils % Lymphocytes % Monocytes % Eosinophils % Basophils % Nucleated RBC % Absolute Neutrophils Absolute Lymphocytes Absolute Monocytes Absolute Eosinophils Absolute Basophils PT 11.0 Cancelled INR 1.1 Cancelled APTT 112.9 H* Cancelled VBG pH VBG pCO2 VBG pO2 VBG HCO3 VBG Total CO2 VBG O2 Saturation VBG Base Excess Sodium Potassium Chloride Carbon Dioxide Anion Gap BUN Creatinine Est GFR (CKD-EPI 2020) Glucose Calcium Magnesium Total Bilirubin AST ALT Alkaline Phosphatase Troponin I Cancelled NT-Pro-B Natriuret Pep Total Protein Albumin Lipase TSH Phenytoin 12/06/23 12/06/23 12/06/23 17:57 16:40 16:10 WBC 7.96 RBC 5.45 H Hgb 16.2 H Hct 46.3 H MCV 85 MCH 29.7 MCHC 35.0 RDW 12.2 Plt Count 286 MPV 10.1 Immature Gran % 0.3 Neutrophils % 67.1 Lymphocytes % 23.7 Monocytes % 6.0 Eosinophils % 1.9 Basophils % 1.0 Nucleated RBC % 0.0 Absolute Neutrophils 5.34 Absolute Lymphocytes 1.89 Absolute Monocytes 0.48 Absolute Eosinophils 0.15 Absolute Basophils 0.08 PT Cancelled INR Cancelled APTT VBG pH VBG pCO2 VBG pO2 VBG HCO3 VBG Total CO2 VBG O2 Saturation VBG Base Excess Sodium 137 Potassium 3.9 Chloride 101 Carbon Dioxide 24.5 Anion Gap 11.5 H BUN 12 Creatinine 0.8 Est GFR (CKD-EPI 2020) 87.50 Glucose 131 H Calcium 9.3 Magnesium Total Bilirubin 0.34 AST 23 ALT 39 Alkaline Phosphatase 148 H Troponin I 619 H* 383 H* NT-Pro-B Natriuret Pep Total Protein 7.6 Albumin 4.0 Lipase 37 TSH 1.65 Phenytoin 8.8 L PFSH All Active Problems (Updated 12/06/23 @ 22:02 by Clayton English) Non-ST elevation [place] (NSTEMI) (Acute) Phenytoin toxicity (Acute) Urinary tract infection (Acute) Trigeminal neuralgia pain (Acute) Colon cancer screening (Acute) Medical History Hypertension Anxiety disorder Urge incontinence Heart murmur, systolic Viral meningitis Liver disease Hyperlipidemia Alcohol abuse, in remission in remission for 13 years Cocaine abuse in remission in remission for 13 years History of hepatitis Hep C. pt. states she has been treated in 2004, states she did the Interferon treatment. Family history of chronic ischemic heart disease Family history of diabetes mellitus Tobacco use disorder Benign essential hypertension Onychomycosis Surgical History H/O tubal ligation Normal colonoscopy (~12/2019) Hx of section x2 Hx of cholecystectomy History of appendectomy Family History Mother Diabetes Emphysema lung Coronary artery disease Hypertension Hyperlipidemia Father Heart disease Coronary artery disease Hypertension Hyperlipidemia Sister Heart disease Coronary artery disease Diabetes Stroke Hypertension Hyperlipidemia Social History Smoking/Tobacco Use Status: Current every day Tobacco Type: cigarettes Quit status: quit date established Smoking risk assessment performed?: Yes Alcohol Intake: former Drug use: Current Sobriety Substance use type: former substance user and crack/cocaine Details: 13 years Household members: none Housing: house Number of Children: 0 current occupation: [employer] What is your relationship status?: Panel score (0-1 are the most socially isolated patients): 0 Do you feel safe at home: Yes Do you feel safe in your relationship?: Yes Time Spent with Patient Time Spent with Patient: <45 minutes Time was spent: preparing to see the patient(eg.review tests), obtaining and/or reviewing separately otained hiistory, ordering medications,tests, procedures, referring, communicating with other health critical care educator, indepentently interpreting results and care coordination
--- NOTE | 2023-12-07 02:11 | CE_ITS ---
Date of service: 12/06/23 Time of Service: 11:30 Event Note: I was called to patient's bedside with transfer of patient from the ED to the ICU. The nurse was giving the patient IV Lasix 80 mg and has placed the patient on increased oxygen supplementation with acute hypoxemia reported by nurse. Pulse oximeter did drop below 80%. She did respond to O2 supplementation at rest but was in obvious respiratory distress with tachypnea, tach) and prolonged expiratory phase as well as audible diffuse rales by exam. He was diaphoretic and cool. He was given morphine 4 mg IV and her tachycardia/hypertension was treated with metoprolol 10 mg IV. Loera catheter was placed and patient was began to diurese but did require 40 extra milligrams of Lasix. She diuresed 500 cc of urine in 1 hour. She received more metoprolol 10 mg IV with heart rate improved and a repeat dose of morphine 4 mg IV. [facility] cardiology was called and transfer was arranged for immediate transfer with patient's EKG changes and decompensation with flash pulmonary edema. They were comfortable with ground transport on BiPAP with patient stabilizing her oxygenation as well as tachycardia, blood pressure and tachypnea. Patient is a full code and will be transferred to the cardiology ICU and then immediatel cardiac catheterization. Time Spent with Patient Time spent in critical care(minutes): 60 Time Spent Included: Coordination of care, Chart review, Documenting critically ill care, Time at immediate bedside and Discussing critically ill care with other medical staff
== END 2023-12-07 02:15 | disposition short-term general hospital (02) | DRG 280 ==
LOC: ER 22:07 → ICU 22:49
PROVIDERS: Admitting Provider Family Medicine; Emergency Provider Emergency Medicine; PCP Physician Assistant; Visit Provider Family Medicine
DX: I21.4 Non-ST elevation (NSTEMI) myocardial infarction (principal); J81.0 Acute pulmonary edema; J44.9 Chronic obstructive pulmonary disease, unspecified; I10 Essential (primary) hypertension; K76.9 Liver disease, unspecified; F10.11 Alcohol abuse, in remission; F14.11 Cocaine abuse, in remission; E78.5 Hyperlipidemia, unspecified; F17.210 Nicotine dependence, cigarettes, uncomplicated; F41.1 Generalized anxiety disorder; R09.02 Hypoxemia; R00.0 Tachycardia, unspecified; Z79.899 Other long term (current) drug therapy; R06.03 Acute respiratory distress; N39.41 Urge incontinence; G50.0 Trigeminal neuralgia
CPT/HCPCS: 00123; 36415; 80053; 82805; 83690; 85027; 93005; 96365; 96366; 96367; 96375; 99285; 71045; 71046; 80185; 83735; 83880; 84443; 84484; 85025; 85610; 85730; 93010; 94660; 99223; 99238; 99291; J1644; J1790; J1940; J2060; J2270; J2305; J3010; J7620

== ENCOUNTER 2023-12-29 09:00 | Outpatient (RCR) | payer MEDICAID, SELFPAY | END 2023-12-29 23:59 | disposition home or self-care (01) | LOC: CR 09:00 | PROVIDERS: PCP Physician Assistant; Visit Provider Internal Medicine Cardiovascular Disease | DX: I21.4 Non-ST elevation (NSTEMI) myocardial infarction (principal) | CPT/HCPCS: S9472 ==

== ENCOUNTER 2024-01-07 09:22 | Outpatient (RCR) | payer MEDICAID, SELFPAY ==
--- NOTE | 2024-01-07 09:30 | RT.EKG_ITS ---
APPROVED REPORT Exam: Resting ECG Reason for Exam: chest pain Patient Location: O HR:66 bpm ECG Measurements Heart Rate 66 AXIS [place] 183 P 85 QRSd 105 QRS -57 QT 446 T 243 QTc 468 Conclusion Sinus rhythm...normal P axis, V-rate 50- 99 Left anterior fascicular block...axis(240,-40), init forces inf Low voltage, extremity leads...all extremity leads <0.5mV Abnormal R-wave progression, late transition...QRS area<0 in V5/V6 Repol abnrm, global ischemia, diffuse leads...ST dep, T neg, ant/lat/inf Baseline wander in lead(s) II,III,aVF,V5,V6
--- NOTE | 2024-01-07 12:40 | NUR.NOTE ---
At approximately 0900 on 01/07/2024, pt. presented for CR session. Pt. tolerated exercise session well. Following the end of the exercise session, pt. complained of 2/10, dull, aching, chest pain. When asked by nursing staff when the chest pain started, pt. stated that it had been happening for the last few days, but pt. never mentioned this to nursing staff prior to starting the exercise session. Pt. states, It feels a little like indigestion. Pt. states it was relieved slightly by Pepto-Bismol at home. Order was placed for an EKG. EKG was performed. EKG was viewed by Dr. Santana. Per Dr. Santana's recommendation, pt. to be brought to the ED. Pt. was then escorted to the ED by one RN, while the other RN called report on the pt. to the ED. Pt. was brought to room 3 in the ED where ED staff assumed care of the pt. Nursing Note:
== END 2024-01-29 23:59 | disposition home or self-care (01) ==
LOC: CR 09:22
PROVIDERS: PCP Physician Assistant; Visit Provider Internal Medicine Cardiovascular Disease
DX: I21.4 Non-ST elevation (NSTEMI) myocardial infarction (principal); I50.22 Chronic systolic (congestive) heart failure; Z51.89 Encounter for other specified aftercare
CPT/HCPCS: S9472

== ENCOUNTER 2024-01-07 10:07 | Emergency (ER) | payer MEDICAID, SELFPAY ==
[2024-01-07] VITALS (240 sets, daily range): BP systolic 125–208; BP diastolic 67–146; PULSE 54–79; RESP 7–29; TEMP 37.3; O2SAT 91–100
--- NOTE | 2024-01-07 10:00 | RT.EKG_ITS ---
APPROVED REPORT Exam: Resting ECG Reason for Exam: Chest pain Patient Location: E HR:63 bpm ECG Measurements Heart Rate [address] 188 P 47 QRSd 98 QRS -12 QT 441 T 202 QTc 453 Conclusion Sinus rhythm Diffuse T-wave inversion, new from 11/2023 EKG Compared to 01/06 10am, T wave amplitude has decreased
--- NOTE | 2024-01-07 10:15 | DI.RAD_ITS ---
Exam(s) XR PORTABLE CHEST AP EXAM: XR PORTABLE CHEST AP CLINICAL HISTORY: CP. TECHNIQUE: 2D digital imaging was performed. COMPARISON: CR,XR XR PORTABLE CHEST AP from 12/06/2023 FINDINGS: Single AP portable view. There has been significant improvement from 12/06/2023 Heart size is upper normal. The mediastinum is not widened. Lungs are presently clear with no evidence of remaining pulmonary edema. No infiltrates nor pleural effusions. IMPRESSION: No acute pulmonary findings on this single AP portable view of the chest.Significant improvement when compared to chest x-ray of 12/06/2023. DATA REPOSITORY: RADIATION DOSE DELIVERED:
--- NOTE | 2024-01-07 10:18 | W.ED.GENAD ---
Discharge Plan Disposition Patient Disposition: Transfer-Acute Inpatient Care Specific Acute Inpt Facility: [facility] Condition: Stable Discharge Details Clinical Impression: Unstable angina, Non-ST elevation [place] (NSTEMI) Primary Care Provider: Raffi Nolasco ED Provider: Amirah Higuera Home Meds and New Rx's Prescriptions: No Action nicotine 14 mg/24 hr patch 24 hour 1 patch TD DAILY PRN varenicline [Chantix] 1 mg tablet 1 mg PO BID simvastatin 20 mg tablet 20 mg PO HS albuterol sulfate [ProAir HFA] 90 mcg/actuation HFA aerosol inhaler 2 puff IH Q6H PRN lisinopril 20 mg tablet 30 mg PO DAILY amlodipine 10 mg tablet 10 mg PO DAILY oxybutynin chloride 5 mg tablet 5 mg PO HS sertraline 100 mg tablet 100 mg PO DAILY metoprolol tartrate 50 mg tablet 50 mg PO BID clonazepam 0.5 mg tablet 0.5 mg PO DAILY PRN buspirone 5 mg tablet 5 mg PO BID PRN Patient Comments: TAKE 1 TABLET BY MOUTH TWICE DAILY gabapentin 300 mg capsule 900 mg PO TID Patient Comments: TAKE 3 CAPSULES BY MOUTH THREE TIMES DAILY nortriptyline 10 mg capsule 10 mg PO HS Patient Comments: TAKE 1 CAPSULE BY MOUTH EVERY DAY AT BEDTIME Incruse Ellipta 62.5 mcg/actuation blister with device 1 inh INHALATION DAILY Patient Comments: INHALE 1 PUFF BY MOUTH EVERY DAY phenytoin sodium extended 100 mg capsule 100 mg PO HS Qty: 0 0RF Patient Comments: Previously taking TID, recently changed to once a day at bedtime sulfamethoxazole-trimethoprim [Bactrim DS] 800-160 mg tablet 1 tab PO BID Qty: 6 0RF HPI General Date/Time Provider Initiated Documentation: 01/07/24 10:08. Limitations to Documentation: no limitations. Information obtained by: patient. HPI Narrative: MDM: In brief, this is a 53-year-old female patient with a history of recent NSTEMI, complicated by flash pulmonary edema, history of seizure disorder, hypertension, asthma, who is presenting for evaluation of dull chest pain that has been present for several days, worsened with exercise and associated with diffuse T wave inversions on EKG. My differential includes but is not limited to ACS including STEMI, NSTEMI, unstable angina, certainly considered pericarditis and myocarditis including Surekha syndrome, CHF exacerbation, post OK aneurysmal changes. I considered aortic pathology including dissection and aneurysm, though the patient is without characteristic chest pain, pulse differential or neurodeficits. The patient has no cough, shortness of breath, or hypoxia to significantly increase my concern for pulmonary abnormalities such as URI, pneumonia, pulmonary edema, pneumothorax, pleural effusion. I considered pulmonary embolism though there is no pleuritic component to her pain, she is without DVT symptoms, and is not tachycardic or hypoxic on my physical examination. The patient has no musculoskeletal chest wall tenderness making costochondritis and other musculoskeletal etiologies of chest pain less likely. The patient endorses that her typical Pepto-Bismol did not assist her in managing her symptoms, and she is without nausea or vomiting, abdominal pain, or other findings on history or physical to significantly increase my concern for GI pathology such as esophagitis, Boerhaave's, PUD. ED Course: Initial EKG was obtained, as noted showing diffuse T wave changes that are decreased in amplitude from the EKG obtained at cardiac rehab, but new from her most recent EKG taken several days ago. Laboratory studies were taken to include CBC, CMP, troponin, and a portable x-ray was obtained. I independently interpreted this x-ray, which shows no evidence of pulmonary edema, mediastinal widening, or other concerning findings to explain the patient's pain today. I did perform a bedside ultrasound, which shows a moderately reduced ejection fraction, no pericardial effusion, no pulmonary edema, IVC is not plethoric with appropriate respiratory variation. The patient was provided with a dose of aspirin, 325 mg, as well as a sublingual nitroglycerin which improved but did not resolve her pain. The repeat EKG was evaluated and shows no dynamic changes. I did review the patient's laboratory studies, which show no leukocytosis, anemia or thrombocytopenia. Chemistry panel is without electrolyte abnormality, evidence of kidney dysfunction or liver disease. Initial troponin was negative and a 2-hour delta troponin will be obtained. Given the patient's high risk history, her ongoing chest pain, I am most concerned for unstable angina versus NSTEMI, and reached out to the cardiology team at [facility]. I discussed the patient's case with GARY Harris, and the decision was made to transfer the patient to [facility] as review of her prior medical records does show that she had a 60% LAD occlusion, which could represent a culprit lesion in this case. Accepting physician at [facility] is Dr. Prabhjot Brand. They recommended heparin bolus and drip, and nitroglycerin drip for the patient's ongoing chest pain, as well as loading Plavix 600 mg. She will be transported by EMS from this facility and while under my care remained hemodynamically appropriate with improved pain. Amirah Higuera MD HPI: This is a 53-year-old female patient with a history of recent NSTEMI 1 month ago complicated by flash pulmonary edema, with a catheterization that did not require any stent placement, history of CHF, seizure, and hypertension, presenting for evaluation of dull chest pain. The patient reports that she has had chest pain that is dull in nature, located substernally and radiating around her medial right breast, that is worse with exercise. She reports that she was at cardiac rehab today and endorsed 2 out of 10 dull chest pain that did not radiate, does not change with position, and is not worse with deep breath or palpation. Exam: Gen: Awake and alert, in no apparent distress HEENT: Non-icteric sclera Neck: Supple Lungs: No apparent respiratory distress, normal respiratory effort. CV: Appears well perfused Abdomen: Non-distended MSK: Moves 4 extremities without apparent limitation in ROM Skin: Visualized skin without rashes, cyanosis. Neuro: Normal Gait, no obvious focal deficits or facial asymmetry. Speaks in full, clear sentences. Psych: Appropriate for situation. Related Data Home Medications ?Medication ?Instructions ?Recorded ?Confirmed albuterol sulfate 90 mcg/actuation 2 puff inhalation Q6H PRN 06/27/19 11/13/23 aerosol inhaler (ProAir HFA) lisinopril 20 mg tablet 30 mg PO DAILY 06/27/19 11/13/23 simvastatin 20 mg tablet 20 mg PO HS 06/27/19 11/13/23 varenicline 1 mg tablet (Chantix) 1 mg PO BID 06/27/19 11/13/23 nicotine 14 mg/24 hr daily 1 patch transdermal DAILY PRN 08/03/19 11/13/23 transdermal patch amlodipine 10 mg tablet 10 mg PO DAILY 02/04/22 11/13/23 metoprolol tartrate 50 mg tablet 50 mg PO BID 02/04/22 11/13/23 oxybutynin chloride 5 mg tablet 5 mg PO HS 02/04/22 11/13/23 sertraline 100 mg tablet 100 mg PO DAILY 02/04/22 11/13/23 clonazepam 0.5 mg tablet 0.5 mg PO DAILY PRN 04/15/22 11/13/23 buspirone 5 mg tablet 5 mg PO BID PRN 11/01/23 11/13/23 gabapentin 300 mg capsule 900 mg PO TID 11/01/23 11/13/23 nortriptyline 10 mg capsule 10 mg PO HS 11/01/23 11/13/23 umeclidinium 62.5 mcg/actuation 1 inh inhalation DAILY 11/01/23 11/13/23 blister powder for inhalation (Incruse Ellipta) phenytoin sodium extended 100 mg 100 mg PO HS #0 caps 11/14/23 11/13/23 capsule sulfamethoxazole 800 1 tab PO BID #6 tabs 11/14/23 mg-trimethoprim 160 mg tablet (Bactrim DS) Previous Rx's ?Medication ?Instructions ?Recorded phenytoin sodium extended 100 mg 100 mg PO HS #0 caps 11/14/23 capsule sulfamethoxazole 800 1 tab PO BID #6 tabs 11/14/23 mg-trimethoprim 160 mg tablet (Bactrim DS) Allergies Allergy/AdvReac Type Severity Reaction Status Date / Time cefazolin sodium (From [facility]) Allergy Severe Anaphylaxsi Verified 12/06/23 15:04 s codeine Allergy Unknown unknown Verified 12/06/23 15:04 hay fever Allergy Mild Other (See Uncoded 12/06/23 15:04 Comment) General LISA: 2 Medical Decision Making Quality:SDOH Health Related Social Needs: No Data to Display PFSH All Active Problems (Updated 01/07/24 @ 12:27 by Amirah Higuera MD) Unstable angina (Acute) Non-ST elevation [place] (NSTEMI) (Acute) Phenytoin toxicity (Acute) Trigeminal neuralgia pain (Acute) Colon cancer screening (Acute) Medical History Hypertension Anxiety disorder Urge incontinence Heart murmur, systolic Viral meningitis Liver disease Hyperlipidemia Alcohol abuse, in remission in remission for 13 years Cocaine abuse in remission in remission for 13 years History of hepatitis Hep C. pt. states she has been treated in 2004, states she did the Interferon treatment. Family history of chronic ischemic heart disease Family history of diabetes mellitus Tobacco use disorder Benign essential hypertension Onychomycosis Surgical History H/O tubal ligation Normal colonoscopy (~12/2019) Hx of section x2 Hx of cholecystectomy History of appendectomy Family History Mother Diabetes Emphysema lung Coronary artery disease Hypertension Hyperlipidemia Father Heart disease Coronary artery disease Hypertension Hyperlipidemia Sister Heart disease Coronary artery disease Diabetes Stroke Hypertension Hyperlipidemia Social History Smoking/Tobacco Use Status: Current every day Tobacco Type: cigarettes Quit status: quit date established Smoking risk assessment performed?: Yes Alcohol Intake: former Drug use: Current Sobriety Substance use type: former substance user and crack/cocaine Details: 13 years Household members: none Housing: house Number of Children: 0 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 What is your relationship status?: Panel score (0-1 are the most socially isolated patients): 0 Do you feel safe at home: Yes Do you feel safe in your relationship?: Yes POCUS Exam (ED) Limited Cardiac Exam DATE OF EXAM: 01/07/24 TIME OF EXAM: 10:29 PROVIDER THAT PERFORMED THE STUDY: Amirah Higuera IS THIS A REPEAT EXAM DURING THIS ENCOUNTER: no REASON FOR EXAM: Chest pain VISUALIZED STRUCTURES: Four Chambers, IVC and Other structure: Lung apices VIEW OBTAINED: Apical 4-Chamber, Parasternal long-axis, Parasternal short-axis, Subxiphoid and Other (Lung apices) PERTINENT FINDINGS/IMPRESSION: IVC inspiratory collapsability, LV dysfunction :mild and Other No diffuse B-lines ; No pericardial effusion and No plethoric IVC Exam complete
[2024-01-07 10:28] LABS: Abs Immature Grans 0.01 10^3/uL (0.0-0.06); Absolute Basophil Count 0.05 10^3/uL (0.0-0.2); Absolute Eosinophil Count 0.24 10^3/uL (0.0-0.7); Absolute Monocyte Count 0.52 10^3/uL (0.1-0.8); Absolute Neutrophil Count 3.77 10^3/uL (1.2-6.7); Basophils % 0.7 %; Eosinophils % 3.5 %; HCT 41.2 % (36.0-46.0); HGB 14.3 g/dL (11.2-15.7); Immature Grans % 0.1 %; Lymphocytes % 33.4 %; MCH 30.3 pg (27.0-33.0); MCHC 34.7 % (32.0-36.0); MCV 87 fL (80-95); Monocytes % 7.5 %; Neutrophils % 54.8 %; Platelet Count 239 10^3/uL (130-400); RBC 4.72 10^6/uL (3.93-5.22); RDW 12.4 % (11.7-14.6); RDW-SD 39.8 fL; WBC 6.89 10^3/uL (4.4-10.8)
--- NOTE | 2024-01-07 10:30 | RT.EKG_ITS ---
APPROVED REPORT Exam: Resting ECG Reason for Exam: Repeat Patient Location: E HR:55 bpm ECG Measurements Heart Rate 55 AXIS LA 201 P 43 QRSd 93 QRS -8 QT 464 T 191 QTc 445 Conclusion Sinus bradycardia Diffuse T-wave inversion persists, no dynamic changes compared to prior
[2024-01-07] MEDS: nitroGLYcerin 0.4 MG TAB SL (10:34)
[2024-01-07] MEDS: Aspirin 81 MG CHEW 324 MG CH (10:34)
[2024-01-07 10:58] LABS: ALT 54 U/L (14-59); AST 25 U/L (15-37); Albumin 3.8 g/dL (3.4-5.0); Alkaline Phosphatase 136 U/L (46-116); Anion Gap 8.3 mmol/L (3-11); BUN 13 mg/dL (7-18); Bilirubin, Total 0.42 mg/dL (0.2-1.0); CO2 27.7 mmol/L (21.0-32.0); CREATININE 0.7 mg/dL (0.55-1.02); Calcium 9.3 mg/dL (8.5-10.1); Chloride 103 mmol/L (98-107); Estimated GFR 102.71 (mL/min/1.73m2); Glucose 112 mg/dL (74-106); Magnesium 1.7 mg/dL (1.8-2.4); Sodium 139 mmol/L (136-145); Total Protein 7.1 g/dL (6.4-8.2); Troponin I < 50 ng/L (< or =60)
[2024-01-07] MEDS: Heparin in 0.45% NaCl 25,000 UNIT/250 ML BAG 7.5 UNIT IV (12:24)
[2024-01-07] MEDS: Clopidogrel 300 MG TAB 600 MG PO (12:24)
[2024-01-07] MEDS: nitroGLYcerin in D5W 50 MG/250 ML BTL IV (12:25)
--- NOTE | 2024-01-07 12:38 | NUR.NOTE ---
Nursing Note: pt reported increase in right/mid chest pain when heparin and nitro drips started. She states the pain is now similar to when she arrived to the department. Pain had initially decreased from 2/10 to 1/10 after one sublingual nitro. MD patel.
[2024-01-07 12:46] LABS: Troponin I < 50 ng/L (< or =60)
[2024-01-07 14:41] LABS: Troponin I < 50 ng/L (< or =60)
--- NOTE | 2024-01-07 15:46 | W.EDPROG ---
Date of service: 01/07/24 Time of Service: 15:46 Medical Decision Making Patient signed out to me pending transfer to [facility]. Still awaiting callback from them she is currently hemodynamically stable with no new acute complaints. Will continue to monitor until transfer is complete. Quality:[facility] Health Related Social Needs: No Data to Display Sign Out Sign Out Data: Sign Out Comment: 53-year-old female patient with a recent history of NSTEMI 1 month ago, known LAD 60% lesion not stented, here with 2 days of dull chest pain worse with exertion. 2 and 4-hour troponin negative, diffuse T wave inversions improved on repeat EKGs, accepted to [facility] cardiology on a heparin drip, nitro drip for pain and blood pressure management, otherwise hemodynamically stable. [ ] Awaiting transfer Last updated by Amirah Higuera MD at 01/07/24 13:23 Discharge Plan Disposition Patient Disposition: Transfer-Acute Inpatient Care Specific Acute Inpt Facility: [facility] Condition: Stable Discharge Details Clinical Impression: Unstable angina, Non-ST elevation [place] (NSTEMI) Primary Care Provider: Raffi Nolasco ED Provider: Raman Lugo Home Meds and New Rx's Prescriptions: No Action nicotine 14 mg/24 hr patch 24 hour 1 patch TD DAILY PRN varenicline [Chantix] 1 mg tablet 1 mg PO BID simvastatin 20 mg tablet 20 mg PO HS albuterol sulfate [ProAir HFA] 90 mcg/actuation HFA aerosol inhaler 2 puff IH Q6H PRN lisinopril 20 mg tablet 30 mg PO DAILY amlodipine 10 mg tablet 10 mg PO DAILY oxybutynin chloride 5 mg tablet 5 mg PO HS sertraline 100 mg tablet 100 mg PO DAILY metoprolol tartrate 50 mg tablet 50 mg PO BID clonazepam 0.5 mg tablet 0.5 mg PO DAILY PRN buspirone 5 mg tablet 5 mg PO BID PRN Patient Comments: TAKE 1 TABLET BY MOUTH TWICE DAILY gabapentin 300 mg capsule 900 mg PO TID Patient Comments: TAKE 3 CAPSULES BY MOUTH THREE TIMES DAILY nortriptyline 10 mg capsule 10 mg PO HS Patient Comments: TAKE 1 CAPSULE BY MOUTH EVERY DAY AT BEDTIME Incruse Ellipta 62.5 mcg/actuation blister with device 1 inh INHALATION DAILY Patient Comments: INHALE 1 PUFF BY MOUTH EVERY DAY phenytoin sodium extended 100 mg capsule 100 mg PO HS Qty: 0 0RF Patient Comments: Previously taking TID, recently changed to once a day at bedtime sulfamethoxazole-trimethoprim [Bactrim DS] 800-160 mg tablet 1 tab PO BID Qty: 6 0RF
[2024-01-07 19:32] LABS: PTT Activated 118.7 sec (23.6-32.8)
== END 2024-01-07 22:48 | disposition short-term general hospital (02) ==
PROVIDERS: Emergency Medicine; Emergency Provider Emergency Medicine; PCP Physician Assistant
DX: I21.4 Non-ST elevation (NSTEMI) myocardial infarction (principal); I11.0 Hypertensive heart disease with heart failure; I50.9 Heart failure, unspecified; I20.0 Unstable angina; E78.5 Hyperlipidemia, unspecified; F17.210 Nicotine dependence, cigarettes, uncomplicated
CPT/HCPCS: 00123; 36415; 80053; 81025; 93005; 93308; 99285; 71045; 83735; 84484; 85025; 85730; 93010; J1644; J2305

== ENCOUNTER 2024-01-12 01:15 | Outpatient (CLI) | payer MEDICAID, SELFPAY ==
--- NOTE | 2024-01-12 | DI.MAMMO_ITS ---
Exam(s) MAMMO SCREENING EXAM: MAMMO SCREENING CLINICAL HISTORY: Z12.31 Screening TECHNIQUE: Bilateral full field digital CC and MLO mammographic images were obtained with 3D tomosyn thesis and utilizing computer aided detection (CAD). COMPARISON: Available for comparison. FINDINGS: Masses/Architectural Distortion: None seen. Microcalcifications: No suspicious pleomorphic-type are seen. Skin Thickening/Nipple Retraction: None. IMPRESSION: 1. No significant interval change with no specific features of malignancy noted. 2. Unless there is more urgent need, screening mammography is recommended, as per [employer] guidelines. BI-RADS Category 1 - Negative Breast Density - Category B - Scattered areas of fibroglandular density Breast density category C or D implies that the patient has dense breast tissue. Dense breast tissue is very common and is not abnormal but dense breast tissue can make it harder to find cancer on a ma mmogram. Also, dense breast tissue may increase their breast cancer risk. This information about the result of the mammogram report was provided to the patient to raise their awareness. Use this report when you speak with the patient about their risks for breast cancer, which includes their family hist ory. At that time, you may recommend for more screening tests (Ultrasound or MRI) as they might be us eful based on their risk. A negative radiographic report should not delay biopsy if a dominant or clinically suspicious mass is present. Up to ten percent of cancers are not identified on mammography. A negative report may reinforce clinical impression. Adenosis and dense breasts may obscure an underlying neoplasm. False positive reports average 6 to 10%. Patient will receive a letter notifying them of these results.
--- NOTE | 2024-01-12 | DI.CTLCSR_ITS ---
Exam(s) CT CHEST LUNG CANCER SCREEN EXAM: CT CHEST LUNG CANCER SCREEN CLINICAL HISTORY: F17.209 Nicotine dependence, unspecified,with unspecified nicotine-induced TECHNIQUE: Imaging Protocol: Axial computed tomography images with coronal and sagittal reformatted images were created and reviewed COMPARISON: CT RENAL COLIC WO CONTRAST from 08/26/2008 CT RENAL COLIC WO CONTRAST from 03/27/2012 CR XR PORTABLE CHEST AP from 01/07/2024 FINDINGS: Tracheobronchial tree: Patent where visualized. No bronchiectasis. Pulmonary parenchyma: No consolidation or dominant measurable mass. No architectural distortion. Lung Nodules: None. Mediastinum and Danae: No dominant adenopathy or fluid collection. The esophagus is unremarkable. Thyroid gland: Unremarkable. Lymph nodes: Unremarkable. Pleura: No effusion or pneumothorax. Heart: The heart is not dilated. Coronary artery calcifications are present. No pericardial effusion . Aorta: Thoracic aorta non-dilated.Atherosclerotic calcifications are present. Upper abdomen: Unremarkable. Soft Tissues: Unremarkable. Bones: Within normal limits. IMPRESSION: No pulmonary nodules. Lung RADS Cat 1 - Negative: No nodules and definitely benign nodules Lung-RADS 1.0 CATEGORIES: Category 0 - Prior chest CT exam(s) being located for comparison. Category 1 - Annual screening in 12 months. No nodules or definitely benign nodules. Category 2 - Annual screening in 12 months. Benign appearance. Nodules with low likelihood of becomin g active cancer. Category 3 - 6-month follow-up. Probably benign. Short-term follow-up suggested. Nodules with low lik elihood of becoming active cancer. Category 4A - 3-month follow-up and CT/PET if >8 mm in size. Suspicious finding. Findings which requi re additional testing. Category 4B - Findings which require additional testing and tissue sampling. Suspicious finding. Category 4X - Category 3 or 4 nodules with additional features or imaging findings that increases the suspicion of malignancy. Modifier S- Potentially clinically significant finding. (Non lung cancer) RADIATION DOSE DELIVERED: Total DLP Total DLP Total DLP Total DLP DATA REPOSITORY: All CT scans at this facility are submitted to the National Radiology Data Registry (NRDR) Dose Index Registry (DIR) with the [employer] (A[employer]). RADIATION OPTIMIZATION: All CT scans at this facility use at least one of these dose optimization te chniques: automated exposure control; mA and/or kV adjustment per patient size (includes targeted exa ms where dose is matched to clinical indication); or iterative reconstruction.
== END 2024-01-12 01:35 ==
LOC: DI 01:15
PROVIDERS: PCP Physician Assistant; Visit Provider Physician Assistant
DX: Z12.31 Encounter for screening mammogram for malignant neoplasm of breast (principal); Z12.2 Encounter for screening for malignant neoplasm of respiratory organs; F17.210 Nicotine dependence, cigarettes, uncomplicated
CPT/HCPCS: 71271; 77063; 77067

== ENCOUNTER 2024-01-18 02:21 | Outpatient (CLI) | payer MEDICAID, SELFPAY ==
--- NOTE | 2024-01-18 10:10 | W.NUTRFU ---
Date of service: 01/18/24 Time of Service: 09:00 Nutrition Note NOTE: Swathi is a 53yo female referred for today's nutrition visit to discuss heart healthy eating and also goal of preventing dx of DMII with A1C up to 6.2% last month. Swathi had a history of drug and alcohol abuse in her earlier years and was able to quit both 18 years ago. She continued to use tobacco however and was beginning to quit/smoking significantly less leading up to her heart issues and hospitalization - she then has not smoked since but admits she is early into it and still has some stronger cravings. She currently lives alone with her brother - who has bad habits according to her (alcohol abuse, obesity, unhealthy eating). She finds his influence distracting. She also has been out of work (she says she is returning next Wednesday) and has a limited food budget. Receives ~290 dollars in SNAP benefits. She does not exercise - basically reports staying inside with her brother all day. Her meal pattern usually looks like a breakfast and lunch meal at 2pm and then dinner in the evening, where she will have a veggie option. Per pt diet history, usual diet assessed as low in fiber and many days low in protein. High risk of micronutrient insufficiencies/deficiencies due to just having 2 meals per day and low produce intake. Tends to manage constipation due to this. 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 States she experienced a 25lb weight loss x3 months. She is fine with this weight loss and doesn't want to regain. We discussed healthy weight loss and setting up a diet template that would be what she aims to get closer to, including a goal to get more fiber from produce (Canned, frzn, fresh) and legumes, nuts and seeds. We discussed choosing more plant protein and reducing saturated fat (no more than 20g per day). Encouraged garlic, green tea/black coffee/hibiscus tea, 1/2 cup legumes 3x per week at minimum. Encouraged working on eating breakfast to allow for more nutrient intake and help to meet her protein needs (estimated at 77-93g or 1-1.2g/kg). Swathi knows changing up her diet might be difficult as she needs to form new habits. Encouraged slow progress and working towards her ideal day for eating. She is excited to make some minimal changes with her diet immediately and work towards making more as she becomes ready. We scheduled a follow up vitist for 02/10 at 11am to check on her progress and work more to install better eating habits and food choices on a consistent basis. Time Spent in Nutritional Counseling and Treatment: 25 min
== END 2024-01-18 02:22 | disposition home or self-care (01) ==
LOC: DS 02:21
PROVIDERS: PCP Physician Assistant; Visit Provider Dietitian, Registered
DX: R73.03 Prediabetes (principal)
CPT/HCPCS: 00123; 97802

== ENCOUNTER 2024-02-04 17:26 | Outpatient (REF) | payer MEDICAID, SELFPAY ==
--- NOTE | 2024-02-04 08:20 | PAPFT_PTH ---
PATIENT: Swathi Patten LOC: [facility] U#:[id number] AGE/SX: 53/F ROOM: RE02/04/[address]: Raffi Nolasco : 1970 BED: DIS: 02/04/2024 SPEC #: [id number] RECD: 02/04/24 18:23 STATUS: KEYLA REQ #: [id number] CAL: 02/04/24 08:[address]: Raffi Nolasco DEPT: [facility] Cytology RECD BY: Emmanuelle Beasley Tissues: 1 - CX/ENDOCX FOR PAP SMEARS Procedures: PAP THIN PREP/UVM Screening HPV DNA PROBE Comments: [id number] (HPV 16 & 18/45) (CHLAMYDIA/GC)
[2024-02-07 12:42] LABS: Chlamydia Result Negative (Negative); GC Result Negative (Negative)
== END 2024-02-04 17:27 | disposition home or self-care (01) ==
LOC: LBN 17:26
PROVIDERS: PCP Physician Assistant; Visit Provider Physician Assistant
DX: Z11.51 Encounter for screening for human papillomavirus (HPV) (principal); Z01.419 Encounter for gynecological examination (general) (routine) without abnormal findings
CPT/HCPCS: 87491; 87591; 88142; 87624

== ENCOUNTER 2024-07-02 05:24 | Emergency (ER) | payer BC, MEDICAID, SELFPAY ==
[2024-07-02] VITALS (41 sets, daily range): BP systolic 184–264; BP diastolic 109–170; PULSE 54–75; RESP 8–24; TEMP 35.8–36.3; O2SAT 94–100
--- NOTE | 2024-07-02 05:30 | RT.EKG_ITS ---
APPROVED REPORT Exam: Resting ECG Reason for Exam: sob Patient Location: E HR:56 bpm ECG Measurements Heart Rate 56 AXIS NH 205 P 46 QRSd 97 QRS -17 QT 438 T 67 QTc 424 Conclusion Sinus bradycardia...rate< 60 Borderline prolonged NH interval...NH >202, V-rate 50- 90 Probable left atrial enlargement...P >50mS, <-0.10mV V1 Probable left ventricular hypertrophy...multiple LVH criteria no ST segment or T wave abnormalities to suggest occlusive WA
[2024-07-02] MEDS: Ondansetron 4 MG/2 ML VIAL IVP (05:47)
[2024-07-02] MEDS: Lactated Ringers 1,000 ML 1000 ML IV (05:48)
[2024-07-02] MEDS: ACETAMINOPHEN 1,000 MG/100 ML BAG 400 MG IVPB (05:48)
[2024-07-02 05:58] LABS: BE (Venous) -1 mmol/L (-2-3); HCO3 (Venous) 23 mmol/L (23-28); O2 Sat (Venous) 88 %; TCO2 (Venous) 19 mmol/L (24-29); pCO2 (Venous) 31 mmHg (41-51); pH (Venous) 7.47 (7.31-7.41); pO2 (Venous) 46 mmHg
[2024-07-02 06:00] LABS: Abs Immature Grans 0.04 10^3/uL (0.0-0.06); Absolute Basophil Count 0.08 10^3/uL (0.0-0.2); Absolute Eosinophil Count 0.13 10^3/uL (0.0-0.7); Absolute Lymphocyte Count 2.17 10^3/uL (1.2-3.4); Basophils % 0.6 %; Eosinophils % 0.9 %; HCT 49.7 % (36.0-46.0); HGB 17.2 g/dL (11.2-15.7); Immature Grans % 0.3 %; Lymphocytes % 15.4 %; MCHC 34.6 % (32.0-36.0); MCV 87 fL (80-95); Neutrophils % 78.8 %; Platelet Count 291 10^3/uL (130-400); RBC 5.73 10^6/uL (3.93-5.22); RDW 12.2 % (11.7-14.6); RDW-SD 38.9 fL; WBC 14.09 10^3/uL (4.4-10.8)
[2024-07-02 06:01] LABS: Absolute Monocyte Count 0.56 10^3/uL (0.1-0.8)
--- NOTE | 2024-07-02 06:07 | ED.GENADUL_ITS ---
Discharge Plan Discharge Details Chief Complaint: Nausea/Vomit/Diar Primary Care Provider: Raffi Nolasco ED Provider: Rita Sullivan Home Meds and New Rx's Prescriptions: No Action nicotine 14 mg/24 hr patch 24 hour 1 patch TD DAILY PRN varenicline tartrate [Chantix] 1 mg tablet 1 mg PO BID simvastatin 20 mg tablet 20 mg PO HS albuterol sulfate [ProAir HFA] 90 mcg/actuation HFA aerosol inhaler 2 puff IH Q6H PRN lisinopril 20 mg tablet 30 mg PO DAILY amlodipine 10 mg tablet 10 mg PO DAILY oxybutynin chloride 5 mg tablet 5 mg PO HS sertraline 100 mg tablet 100 mg PO DAILY metoprolol tartrate 50 mg tablet 50 mg PO BID clonazepam 0.5 mg tablet 0.5 mg PO DAILY PRN atorvastatin 40 mg tablet 40 mg PO DAILY Patient Comments: TAKE ONE TABLET BY MOUTH EVERY EVENING carvedilol 25 mg tablet 25 mg PO BID Patient Comments: TAKE ONE TABLET BY MOUTH TWICE A DAY isosorbide mononitrate 30 mg tablet extended release 24 hr 30 mg PO DAILY Patient Comments: TAKE ONE TABLET BY MOUTH EVERY DAY lidocaine 5 % adhesive patch,medicated 1 patch topical DAILY Patient Comments: APPLY ONE PATCH TOPICALLY EVERY DAY LEAVE ON 12 HOURS AND REMOVE FOR 12 HOURS losartan 25 mg tablet 25 mg PO DAILY Patient Comments: TAKE ONE TABLET BY MOUTH EVERY DAY nicotine 21 mg/24 hr patch 24 hour 1 patch topical DAILY Patient Comments: APPLY ONE PATCH TO THE SKIN EVERY DAY buspirone 7.5 mg tablet 7.5 mg PO BID Patient Comments: TAKE ONE TABLET BY MOUTH TWICE A DAY oxcarbazepine 600 mg tablet 600 mg PO BID Patient Comments: TAKE ONE TABLET BY MOUTH TWICE A DAY furosemide 20 mg tablet 20 mg PO QAM Patient Comments: TAKE ONE TABLET BY MOUTH EVERY MORNING Spiriva Respimat 2.5 mcg/actuation mist 2 puff INHALATION ONCE Patient Comments: INHALE TWO PUFFS BY MOUTH EVERY DAY buspirone 5 mg tablet 5 mg PO BID PRN Patient Comments: TAKE 1 TABLET BY MOUTH TWICE DAILY gabapentin 300 mg capsule 900 mg PO TID Patient Comments: TAKE 3 CAPSULES BY MOUTH THREE TIMES DAILY nortriptyline 10 mg capsule 10 mg PO HS Patient Comments: TAKE 1 CAPSULE BY MOUTH EVERY DAY AT BEDTIME Incruse Ellipta 62.5 mcg/actuation blister with device 1 inh INHALATION DAILY Patient Comments: INHALE 1 PUFF BY MOUTH EVERY DAY phenytoin sodium extended 100 mg capsule 100 mg PO HS Qty: 0 0RF Patient Comments: Previously taking TID, recently changed to once a day at bedtime HPI General Mode of arrival: ambulatory . Date/Time Provider Initiated Documentation: 07/02/24 05:25 . Limitations to Documentation: no limitations . Information obtained by: patient . HPI Narrative: 53yo F with hx HTN, HLD, prior LA, anxiety, presenting for vomiting. [place] 'okay' yesterday, some loose stools. Non-bloody. This morning woke at 2am with nausea and vomiting, nonbloody nonbilious, about 6 times since onset, not able to keep anything down. Diffuse abdominal cramping. No focal abdominal pain, dysuria, or hematuria. Feels short breath, believes it is because she is so nausated. Chest feels a little 'tight' with deep breathing, denies chest pain. Did have an LA about 5 months ago. Otherwise in her usual state of health with no fevers, chills, rash, numbness, tingling, weakness, vertigo, lightheadedness, or other concerns. Related Data Home Medications ?Medication ?Instructions ?Recorded ?Confirmed albuterol sulfate 90 mcg/actuation 2 puff inhalation Q6H PRN 06/27/19 07/02/24 aerosol inhaler (ProAir HFA) lisinopril 20 mg tablet 30 mg PO DAILY 06/27/19 07/02/24 simvastatin 20 mg tablet 20 mg PO HS 06/27/19 07/02/24 varenicline tartrate 1 mg tablet 1 mg PO BID 06/27/19 07/02/24 (Chantix) nicotine 14 mg/24 hr daily 1 patch transdermal DAILY PRN 08/03/19 07/02/24 transdermal patch amlodipine 10 mg tablet 10 mg PO DAILY 02/04/22 07/02/24 metoprolol tartrate 50 mg tablet 50 mg PO BID 02/04/22 07/02/24 oxybutynin chloride 5 mg tablet 5 mg PO HS 02/04/22 07/02/24 sertraline 100 mg tablet 100 mg PO DAILY 02/04/22 07/02/24 clonazepam 0.5 mg tablet 0.5 mg PO DAILY PRN 04/15/22 07/02/24 buspirone 5 mg tablet 5 mg PO BID PRN 11/01/23 07/02/24 gabapentin 300 mg capsule 900 mg PO TID 11/01/23 07/02/24 nortriptyline 10 mg capsule 10 mg PO HS 11/01/23 07/02/24 umeclidinium 62.5 mcg/actuation 1 inh inhalation DAILY 11/01/23 07/02/24 blister powder for inhalation (Incruse Ellipta) phenytoin sodium extended 100 mg 100 mg PO HS #0 caps 11/14/23 07/02/24 capsule atorvastatin 40 mg tablet 40 mg PO DAILY 07/02/24 07/02/24 buspirone 7.5 mg tablet 7.5 mg PO BID 07/02/24 07/02/24 carvedilol 25 mg tablet 25 mg PO BID 07/02/24 07/02/24 furosemide 20 mg tablet 20 mg PO QAM 07/02/24 07/02/24 isosorbide mononitrate 30 mg 30 mg PO DAILY 07/02/24 07/02/24 tablet,extended release 24 hr lidocaine 5 % topical patch 1 patch topical DAILY 07/02/24 07/02/24 losartan 25 mg tablet 25 mg PO DAILY 07/02/24 07/02/24 nicotine 21 mg/24 hr daily 1 patch topical DAILY 07/02/24 07/02/24 transdermal patch oxcarbazepine 600 mg tablet 600 mg PO BID 07/02/24 07/02/24 tiotropium bromide 2.5 2 puff inhalation ONCE 07/02/24 07/02/24 mcg/actuation mist for inhalation (Spiriva Respimat) Previous Rx's ?Medication ?Instructions ?Recorded phenytoin sodium extended 100 mg 100 mg PO HS #0 caps 11/14/23 capsule Allergies Allergy/AdvReac Type Severity Reaction Status Date / Time cefazolin sodium (From [facility]) Allergy Severe Anaphylaxsi Verified 07/02/24 06:27 s codeine Allergy Unknown unknown Verified 07/02/24 06:27 hay fever Allergy Mild Other (See Uncoded 07/02/24 06:27 Comment) General Stated Complaint: Nausea/Vomit/Diar LISA: 3 Review of Systems Narrative: see HPI Exam Narrative Exam Narrative: General: Alert, well nourished, in no acute distress. Head: Normocephalic, atraumatic Neck: Trachea midline, ?Neck supple. ENT: ?MMM.? No oropharygeal lesions or exudate. Cardiac: ?RRR, no murmurs appreciated Resp: Tachypneic. Otherwise no respiratory distress. CTAB. Abd: ?Soft, non-distended, nontender : ?No suprapubic tenderness. No CVA tenderness. Extremities: ?No deformities.? No peripheral edema. Neurologic: GCS 15. ? Moves all extremities freely against gravity Course Vital Signs Vital signs: Vital Signs Temperature 35.8 C L 07/02/24 05:27 Pulse 57 L 07/02/24 05:27 Respiratory Rate 16 07/02/24 05:27 Blood Pressure 264/134 H 07/02/24 05:27 Pulse Oximetry 100 07/02/24 05:27 Temperature 35.8 C L 07/02/24 05:32 Temperature Source Temporal Artery Scan 07/02/24 05:32 Pulse 57 L 07/02/24 05:32 Respiratory Rate 16 07/02/24 05:32 Blood Pressure 264/134 H 07/02/24 05:32 Blood Pressure Position Supine 07/02/24 05:32 Pulse Oximetry 100 07/02/24 05:32 Oxygen Delivery Method Room Air 07/02/24 05:32 Oxygen Flow Rate 0 07/02/24 05:27 Pain Level 9 07/02/24 05:32 Lab/Test Results Lab/Test Results: Laboratory Tests Range/Units 07/02/24 05:50 WBC (4.4-10.8) 10^3/uL 14.09 H RBC (3.93-5.22) 10^6/uL 5.73 H Hgb (11.2-15.7) g/dL 17.2 H Hct (36.0-46.0) % 49.7 H MCV (80-95) fL 87 MCH (27.0-33.0) pg 30.0 MCHC (32.0-36.0) % 34.6 RDW (11.7-14.6) % 12.2 Plt Count (130-400) 10^3/uL 291 MPV (8.0-11.0) fL 10.0 Immature Gran % % 0.3 Neutrophils % % 78.8 Lymphocytes % % 15.4 Monocytes % % 4.0 Eosinophils % % 0.9 Basophils % % 0.6 Nucleated RBC % (0.0-0.3) % 0.0 Absolute Neutrophils (1.2-6.7) 10^3/uL 11.10 H Absolute Lymphocytes (1.2-3.4) 10^3/uL 2.17 Absolute Monocytes (0.1-0.8) 10^3/uL 0.56 Absolute Eosinophils (0.0-0.7) 10^3/uL 0.13 Absolute Basophils (0.0-0.2) 10^3/uL 0.08 VBG pH (7.31-7.41) 7.47 H VBG pCO2 (41-51) mmHg 31 L VBG pO2 mmHg 46 VBG HCO3 (23-28) mmol/L 23 VBG Total CO2 (24-29) mmol/L 19 L VBG O2 Saturation % 88 VBG Base Excess (-2-3) mmol/L -1 Medical Decision Making 53yo F with hx HTN, HLD, prior LA, anxiety, presenting for vomiting onset at 2am. Diffuse abdominal cramping, no focal abdominal pain. Some shortness of breath which she attributes to her nausea. Chest 'tightness' also starting at 2am. Markedly hypertensive on arrival, vital signs otherwise reassuring. Equal BP in both arms. Pt actively dry heaving at time of vital signs, suspect this is contributing. No back pain or neurologic symptoms to suggest dissection; would not scan at this time. Tachypneic, otherwise no indication of respiratory distress. Abdomen soft and non-tender; would not get CT imaging. Will treat with IV tylenol, zofran, and mIVF while awaiting results of workup. Plan to recheck BP and likely give home PO meds if able to tolerate. EKG SR, no ST segment or T wave abnormalities to suggest occlusive LA. Respiratory viral swabs negative. CXR independently reviewed; no focal pneumonia or pneumothorax on my view. Radiology read pending. Labs reviewed as below, CBC with mild leukocytosis at 14 (nonspecific), CMP with no actionable abnormalities, lipase no suggestive of pancreatitis), VBG with respiratory alkalosis consistent with hyperventilation, BNP normal, initial troponin 4 (normal). Labs not suggestive of hypertensive emergency. On reassessment BP remains elevated, patient tolerating sips of fluids after zofran. Will give morning PO meds here, as well as dose of PO ativan (pt takes klonopin prn at home). Will be signed out to oncoming physician, plan to followup delta troponins, monitor BP for improvement, and reasseess and PO challenge. Lab Data Lab results reviewed: Yes I reviewed the patient's lab results. Labs: Laboratory Tests Range/Units 07/02/24 07/02/24 05:50 05:54 WBC (4.4-10.8) 10^3/uL 14.09 H RBC (3.93-5.22) 10^6/uL 5.73 H Hgb (11.2-15.7) g/dL 17.2 H Hct (36.0-46.0) % 49.7 H MCV (80-95) fL 87 MCH (27.0-33.0) pg 30.0 MCHC (32.0-36.0) % 34.6 RDW (11.7-14.6) % 12.2 Plt Count (130-400) 10^3/uL 291 MPV (8.0-11.0) fL 10.0 Immature Gran % % 0.3 Neutrophils % % 78.8 Lymphocytes % % 15.4 Monocytes % % 4.0 Eosinophils % % 0.9 Basophils % % 0.6 Nucleated RBC % (0.0-0.3) % 0.0 Absolute Neutrophils (1.2-6.7) 10^3/uL 11.10 H Absolute Lymphocytes (1.2-3.4) 10^3/uL 2.17 Absolute Monocytes (0.1-0.8) 10^3/uL 0.56 Absolute Eosinophils (0.0-0.7) 10^3/uL 0.13 Absolute Basophils (0.0-0.2) 10^3/uL 0.08 PT (9.1-11.1) sec 9.9 INR (0.9-1.1) 1.0 APTT (20.6-30.2) sec 27.9 VBG pH (7.31-7.41) 7.47 H VBG pCO2 (41-51) mmHg 31 L VBG pO2 mmHg 46 VBG HCO3 (23-28) mmol/L 23 VBG Total CO2 (24-29) mmol/L 19 L VBG O2 Saturation % 88 VBG Base Excess (-2-3) mmol/L -1 Sodium (136-145) mmol/L 137 Potassium (3.5-5.1) mmol/L 4.0 Chloride (98-107) mmol/L 100 Carbon Dioxide (21.0-32.0) mmol/L 25.0 Anion Gap (3-11) mmol/L 12.0 H BUN (7-18) mg/dL 10 Creatinine (0.55-1.02) mg/dL 0.8 Est GFR (CKD-EPI 2020) (mL/min/1.73m2) 87.50 Glucose (74-106) mg/dL 167 H Calcium (8.5-10.1) mg/dL 9.6 Total Bilirubin (0.2-1.0) mg/dL 0.50 AST (15-37) U/L 13 L ALT (14-59) U/L 24 Alkaline Phosphatase (46-116) U/L 133 H Troponin I (<or=51) ng/L 4 NT-Pro-B Natriuret Pep (<300) pg/mL 170 Total Protein (6.4-8.2) g/dL 7.8 Albumin (3.4-5.0) g/dL 4.1 Lipase (<78) U/L 79 H COVID-19 Source Nasopharynx SARS-CoV-2 (PCR) (Negative) Negative Influenza Type A (PCR) (Negative) Negative Influenza Type B (PCR) (Negative) Negative RSV (PCR) (Negative) Negative Quality:SDOH Health Related Social Needs: No Data to Display PFSH All Active Problems (Updated 02/07/24 @ 00:10 by CLARENCE NAVA) Non-ST elevation LA (NSTEMI) (Acute) Phenytoin toxicity (Acute) Trigeminal neuralgia pain (Acute) Colon cancer screening (Acute) Medical History Hypertension Anxiety disorder Urge incontinence Heart murmur, systolic Viral meningitis Liver disease Hyperlipidemia Alcohol abuse, in remission in remission for 13 years Cocaine abuse in remission in remission for 13 years History of hepatitis Hep C. pt. states she has been treated in 2004, states she did the Interferon treatment. Family history of chronic ischemic heart disease Family history of diabetes mellitus Tobacco use disorder Benign essential hypertension Onychomycosis Surgical History H/O tubal ligation Normal colonoscopy (~12/2019) Hx of section x2 Hx of cholecystectomy History of appendectomy Family History Mother Diabetes Emphysema lung Coronary artery disease Hypertension Hyperlipidemia Father Heart disease Coronary artery disease Hypertension Hyperlipidemia Sister Heart disease Coronary artery disease Diabetes Stroke Hypertension Hyperlipidemia Social History Smoking/Tobacco Use Status: Current every day Tobacco Type: cigarettes Quit status: quit date established Smoking risk assessment performed?: Yes Alcohol Intake: former Drug use: Occasionally Substance use type: marijuana Details: 13 years clean crack/cocaine Household members: none Housing: house Number of Children: 0 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
[2024-07-02 06:15] LABS: PTT Activated 27.9 sec (20.6-30.2); Prothrombin Time 9.9 sec (9.1-11.1)
[2024-07-02 06:22] LABS: ALT 24 U/L (14-59); AST 13 U/L (15-37); Albumin 4.1 g/dL (3.4-5.0); Alkaline Phosphatase 133 U/L (46-116); BUN 10 mg/dL (7-18); CREATININE 0.8 mg/dL (0.55-1.02); Chloride 100 mmol/L (98-107); Glucose 167 mg/dL (74-106); NT-proBNP 170 pg/mL (<300); Sodium 137 mmol/L (136-145); Total Protein 7.8 g/dL (6.4-8.2); Troponin I 4 ng/L (<or=51)
--- NOTE | 2024-07-02 06:26 | DI.RAD_ITS ---
Exam(s) XR CHEST 2V PA LATERAL EXAM: XR CHEST 2V PA LATERAL CLINICAL HISTORY: sob TECHNIQUE: 2D digital imaging was performed of the chest. Two images were obtained. PA and lateral views were obtained. COMPARISON: CR XR PORTABLE CHEST AP from 01/07/2024 FINDINGS: MEDIASTINUM: Normal. HEART: Normal. PULMONARY VASCULATURE: Normal. LUNGS: Clear. PLEURAL SPACE: No pleural effusion or pneumothorax. BONE:Within normal limits for the patient's age. OTHER FINDINGS:Normal. IMPRESSION: No acute pulmonary findings. DATA REPOSITORY: RADIATION DOSE DELIVERED:
[2024-07-02 06:30] LABS: Calcium 9.6 mg/dL (8.5-10.1)
[2024-07-02 06:39] LABS: COVID-19 PCR Negative (Negative); Influenza A PCR Negative (Negative); Influenza B PCR Negative (Negative); RSV PCR Negative (Negative)
[2024-07-02 06:44] LABS: Source Nasopharynx
[2024-07-02 06:46] LABS: Lipase 79 U/L (<78)
[2024-07-02] MEDS: LORazepam 1 MG TAB PO (06:58)
[2024-07-02] MEDS: Furosemide 20 MG TAB PO (06:58)
[2024-07-02 07:11] LABS: D-Dimer 460 ng/mlFEU (<500)
--- NOTE | 2024-07-02 07:13 | DI.VRAD_ITS ---
PROCEDURE INFORMATION: Exam: XR Chest Exam date and time: 07/02/2024 6:09 AM Age: 53 years old Clinical indication: Other: SOB TECHNIQUE: Imaging protocol: Radiologic exam of the chest. Views: 2 views. COMPARISON: 1. No relevant prior studies are available for comparison. 2. CT CHEST LUNG CANCER SCREEN 01/12/2024 9:59 AM FINDINGS: Lungs: No focal consolidation seen. Pleural spaces: No large pleural effusion seen. Heart/Mediastinum: No cardiomegaly. Bones/joints: No acute abnormality. IMPRESSION: No acute findings to explain reported symptoms. Dictated and Authenticated by: Verenice Williamson MD. Orderin Nate Salinas MD
[2024-07-02] MEDS: Carvedilol 25 MG TAB PO (07:36)
[2024-07-02 07:37] LABS: Troponin I 6 ng/L (<or=51)
[2024-07-02] MEDS: Isosorbide Mononitrate 30 MG TABCR PO (07:37)
[2024-07-02] MEDS: Losartan 25 MG TAB PO (07:37)
[2024-07-02] MEDS: Prochlorperazine 10 MG/2 ML VIAL IVP (08:35)
[2024-07-02] MEDS: Normal Saline 50 ML 400 ML (08:35)
[2024-07-02 09:17] LABS: Troponin I 11 ng/L (<or=51)
--- NOTE | 2024-07-02 09:31 | W.EDPROG ---
Date of service: 07/02/24 Time of Service: 09:31 Medical Decision Making Patient signed out to me pending delta troponins which are negative. Patient did have recurrent vomiting and was given Compazine with good relief. Discussed results with her and she request discharge which I feel is reasonable. She will follow-up with her PCP if not improving and return precautions given. Quality:SDOH Health Related Social Needs: No Data to Display Discharge Plan Disposition Patient Disposition: Home Condition: Stable Discharge Details Clinical Impression: Nausea & vomiting Primary Care Provider: Raffi Nolasco ED Provider: Raman Lugo Home Meds and New Rx's Prescriptions: New ondansetron 4 mg tablet,disintegrating 4 mg PO Q8H PRN (Reason: nausea and vomiting) Qty: 30 0RF Continued nicotine 14 mg/24 hr patch 24 hour 1 patch TD DAILY PRN varenicline tartrate [Chantix] 1 mg tablet 1 mg PO BID simvastatin 20 mg tablet 20 mg PO HS albuterol sulfate [ProAir HFA] 90 mcg/actuation HFA aerosol inhaler 2 puff IH Q6H PRN oxybutynin chloride 5 mg tablet 5 mg PO HS sertraline 100 mg tablet 100 mg PO DAILY clonazepam 0.5 mg tablet 0.5 mg PO DAILY PRN atorvastatin 40 mg tablet 40 mg PO DAILY Patient Comments: TAKE ONE TABLET BY MOUTH EVERY EVENING carvedilol 25 mg tablet 25 mg PO BID Patient Comments: TAKE ONE TABLET BY MOUTH TWICE A DAY isosorbide mononitrate 30 mg tablet extended release 24 hr 30 mg PO DAILY Patient Comments: TAKE ONE TABLET BY MOUTH EVERY DAY lidocaine 5 % adhesive patch,medicated 1 patch topical DAILY Patient Comments: APPLY ONE PATCH TOPICALLY EVERY DAY LEAVE ON 12 HOURS AND REMOVE FOR 12 HOURS losartan 25 mg tablet 25 mg PO DAILY Patient Comments: TAKE ONE TABLET BY MOUTH EVERY DAY nicotine 21 mg/24 hr patch 24 hour 1 patch topical DAILY Patient Comments: APPLY ONE PATCH TO THE SKIN EVERY DAY buspirone 7.5 mg tablet 7.5 mg PO BID Patient Comments: TAKE ONE TABLET BY MOUTH TWICE A DAY oxcarbazepine 600 mg tablet 600 mg PO BID Patient Comments: TAKE ONE TABLET BY MOUTH TWICE A DAY furosemide 20 mg tablet 20 mg PO QAM Patient Comments: TAKE ONE TABLET BY MOUTH EVERY MORNING Spiriva Respimat 2.5 mcg/actuation mist 2 puff INHALATION ONCE Patient Comments: INHALE TWO PUFFS BY MOUTH EVERY DAY buspirone 5 mg tablet 5 mg PO BID PRN Patient Comments: TAKE 1 TABLET BY MOUTH TWICE DAILY gabapentin 300 mg capsule 900 mg PO TID Patient Comments: TAKE 3 CAPSULES BY MOUTH THREE TIMES DAILY nortriptyline 10 mg capsule 10 mg PO HS Patient Comments: TAKE 1 CAPSULE BY MOUTH EVERY DAY AT BEDTIME Incruse Ellipta 62.5 mcg/actuation blister with device 1 inh INHALATION DAILY Patient Comments: INHALE 1 PUFF BY MOUTH EVERY DAY Discontinued lisinopril 20 mg tablet 30 mg PO DAILY amlodipine 10 mg tablet 10 mg PO DAILY metoprolol tartrate 50 mg tablet 50 mg PO BID phenytoin sodium extended 100 mg capsule 100 mg PO HS Qty: 0 0RF Patient Comments: Previously taking TID, recently changed to once a day at bedtime Discharge Instructions Additional Instructions: Your lab work did not show any concerning findings. You are likely suffering from a stomach virus Try to drink small amounts of liquids frequently to stay hydrated If not proving this week follow-up with your primary care provider If you feel more ill, have severe chest pain or abdominal pain return to the emergency department for reevaluation
== END 2024-07-02 09:50 | disposition home or self-care (01) ==
PROVIDERS: Student in an Organized Health Care Education/Training Program; Emergency Provider Emergency Medicine; PCP Physician Assistant
DX: R11.2 Nausea with vomiting, unspecified (principal); R19.7 Diarrhea, unspecified; I10 Essential (primary) hypertension; E78.5 Hyperlipidemia, unspecified; F17.210 Nicotine dependence, cigarettes, uncomplicated; I25.2 Old myocardial infarction
CPT/HCPCS: 00123; 80053; 82805; 83690; 87637; 93005; 96365; 96375; 99285; 71046; 83880; 84484; 85025; 85379; 85610; 85730; 93010; J0131; J0780; J2405

== ENCOUNTER 2024-07-08 12:51 | Emergency (ER) | payer BC, MEDICAID, SELFPAY ==
[2024-07-08 13:07] VITALS: BP 160/101; PULSE 81; RESP 16; TEMP 36.6; O2SAT 98
[2024-07-08 13:56] LABS: COVID-19 PCR Negative (Negative); Influenza A PCR Negative (Negative); Influenza B PCR Negative (Negative); RSV PCR Negative (Negative)
[2024-07-08 13:57] LABS: Source Nasopharynx
--- NOTE | 2024-07-08 14:30 | DI.CT_ITS ---
Exam(s) CT ABDOMEN PELVIS W EXAM: CT ABDOMEN PELVIS W CLINICAL HISTORY: Epigastric pain, N/V. TECHNIQUE: Imaging Protocol: Axial computed tomography images with coronal and sagittal reformatted images were created and reviewed CONTRAST MATERIAL: Intravenous: Omnipaque 350 Contrast volume:75 ml Oral: no COMPARISON: CT RENAL COLIC WO CONTRAST from 03/27/2012 FINDINGS: ABDOMEN and PELVIS: Lung Bases: No acute findings. Liver: Mildly enlarged. Normal density. No suspicious mass. Gallbladder and biliary tract: Status post cholecystectomy.. No biliary dilation. Pancreas: Normal density. No abnormal calcifications or inflammatory process. No evidence of mass. Spleen: Normal. Kidneys: Normal size, contour and axis. No radiodense stones. No obstructive uropathy. There is a ci rcumscribed lesion seen at the superior pole of the right kidney medially measuring 2 cm. The [place] units are higher than water. The findings could represent a proteinaceous cyst versus mass.. Adrenal glands: No masses seen. Vasculature: Atherosclerotic changes in the abdominal aorta and common iliac arteries. Mild dilatati on of the infrarenal abdominal aorta to 3.7 cm. Soft tissues: Unremarkable. Bladder: No gross wall thickening. No calculi.No focal mass. Bowel: No obstruction. No bowel wall thickening. No evidence of appendicitis. Normal quantity of stool. Peritoneal cavity: No ascites. No focal collection. No mesenteric inflammatory response. No free air . Bones: Unremarkable for age. Reproductive organs: Unremarkable. Lymph nodes: No pathologically enlarged lymph nodes. IMPRESSION:: No acute abnormality in the abdomen or pelvis. 2 centimeter circumscribed lesion at the upper pole of the right kidney. MRI recommended for further evaluation. RADIATION DOSE DELIVERED: Total DLP DATA REPOSITORY: All CT scans at this facility are submitted to the National Radiology Data Registry (NRDR) Dose Index Registry (DIR) with the [employer] ([employer]). RADIATION OPTIMIZATION: All CT scans at this facility use at least one of these dose optimization te chniques: automated exposure control; mA and/or kV adjustment per patient size (includes targeted exa ms where dose is matched to clinical indication); or iterative reconstruction.
--- NOTE | 2024-07-08 14:43 | ED.GENADUL_ITS ---
Discharge Plan Disposition Patient Disposition: Home Condition: Stable Discharge Details Clinical Impression: Gastritis, Left kidney mass Primary Care Provider: Raffi Nolasco ED Provider: Amirah Higuera Home Meds and New Rx's Prescriptions: New omeprazole 40 mg capsule,delayed release(DR/EC) 40 mg PO DAILY 14 Days Qty: 14 0RF No Action nicotine 14 mg/24 hr patch 24 hour 1 patch TD DAILY PRN varenicline tartrate [Chantix] 1 mg tablet 1 mg PO BID simvastatin 20 mg tablet 20 mg PO HS albuterol sulfate [ProAir HFA] 90 mcg/actuation HFA aerosol inhaler 2 puff IH Q6H PRN oxybutynin chloride 5 mg tablet 5 mg PO HS sertraline 100 mg tablet 100 mg PO DAILY clonazepam 0.5 mg tablet 0.5 mg PO DAILY PRN atorvastatin 40 mg tablet 40 mg PO DAILY Patient Comments: TAKE ONE TABLET BY MOUTH EVERY EVENING carvedilol 25 mg tablet 25 mg PO BID Patient Comments: TAKE ONE TABLET BY MOUTH TWICE A DAY isosorbide mononitrate 30 mg tablet extended release 24 hr 30 mg PO DAILY Patient Comments: TAKE ONE TABLET BY MOUTH EVERY DAY lidocaine 5 % adhesive patch,medicated 1 patch topical DAILY Patient Comments: APPLY ONE PATCH TOPICALLY EVERY DAY LEAVE ON 12 HOURS AND REMOVE FOR 12 HOURS losartan 25 mg tablet 25 mg PO DAILY Patient Comments: TAKE ONE TABLET BY MOUTH EVERY DAY nicotine 21 mg/24 hr patch 24 hour 1 patch topical DAILY Patient Comments: APPLY ONE PATCH TO THE SKIN EVERY DAY buspirone 7.5 mg tablet 7.5 mg PO BID Patient Comments: TAKE ONE TABLET BY MOUTH TWICE A DAY oxcarbazepine 600 mg tablet 600 mg PO BID Patient Comments: TAKE ONE TABLET BY MOUTH TWICE A DAY furosemide 20 mg tablet 20 mg PO QAM Patient Comments: TAKE ONE TABLET BY MOUTH EVERY MORNING Spiriva Respimat 2.5 mcg/actuation mist 2 puff INHALATION ONCE Patient Comments: INHALE TWO PUFFS BY MOUTH EVERY DAY ondansetron 4 mg tablet,disintegrating 4 mg PO Q8H PRN (Reason: nausea and vomiting) Qty: 30 0RF ondansetron 4 mg tablet,disintegrating 4 mg PO Q8H PRN (Reason: nausea and vomiting) Qty: 30 0RF buspirone 5 mg tablet 5 mg PO BID PRN Patient Comments: TAKE 1 TABLET BY MOUTH TWICE DAILY gabapentin 300 mg capsule 900 mg PO TID Patient Comments: TAKE 3 CAPSULES BY MOUTH THREE TIMES DAILY Discharge Instructions Instructions: Gastritis (DC) Additional Instructions: You were seen in the emergency department today for evaluation of abdominal pain with nausea and vomiting. In our department you do full physical examination performed, had laboratory studies that were reassuring, and had a CT scan that did not show any obvious abnormalities to account for your symptoms. We did notice an incidental kidney mass, which will require MRI by your primary care provider in the outpatient environment to better characterize. I provided you with a prescription for 2-week course of Prilosec, which can reduce acid in the stomach and improve pain. Additionally, you may wish to trial Mylanta or Maalox rather than Pepto-Bismol, and see if it works better for you. Please follow-up with your primary care provider in the next few days to discuss this visit and any symptoms that change, worsen, or persist. Thank you for allowing us to be part of your care. HPI General Mode of arrival: ambulatory . Date/Time Provider Initiated Documentation: 07/08/24 12:53 . Limitations to Documentation: no limitations . Information obtained by: patient and old records reviewed . HPI Narrative: HPI: This is a 53-year-old female patient with a past medical history significant for CAD, status post cholecystectomy and appendectomy presenting for evaluation of abdominal pain and nausea with vomiting. Of note, the patient was seen here about 5 days ago for similar symptoms where she had reassuring laboratory studies and was sent home after symptomatic management. She states that her nausea and vomiting have improved slightly but her pain has continued, is severe and cramping in nature and located in her epigastric region. She states it feels like when she used to get gastritis. She does not take any antiacid medications, tried Tums and Pepto-Bismol in the home environment without improvement. Exam: Gen: Awake and alert, appears uncomfortable HEENT: Non-icteric sclera Neck: Supple Lungs: No apparent respiratory distress, normal respiratory effort. CV: Appears well perfused, strong distal pulses regular rate and rhythm Abdomen: Non-distended, soft, tender to palpation in the epigastric and left upper quadrant without rigidity, rebound, the patient does have voluntary guarding MSK: Moves 4 extremities without apparent limitation in ROM Skin: Visualized skin without rashes, cyanosis. Neuro: Normal Gait, no obvious focal deficits or facial asymmetry. Speaks in full, clear sentences. Psych: Appropriate for situation. MDM: This is a 53-year-old female patient presenting for evaluation of epigastric abdominal pain with nausea and vomiting. Differential includes but is not limited to gastritis, gastroenteritis, pancreatitis, peptic ulcer disease, cholecystitis, hepatitis, appendicitis, bowel obstruction, diverticulitis. Patient is young and without significant risk factors for aortic pathology or mesenteric ischemia. No hematemesis to suggest Boerhaave's disease, did consider viral upper respiratory infection including flu given her recent exposure. No pelvic pain to suggest PID/TOA or ovarian torsion. She has no urinary symptoms to suggest urinary tract infection or renal stone. We will obtain laboratory studies to include CBC, CMP, magnesium, lipase. I will provide the patient with a dose of Pepcid, Tylenol, and Zofran for symptomatic management, and proceed with CT imaging given the persistence of symptoms. ED Course: The patient has a mild leukocytosis to 14.8, which is stable from laboratory studies obtained a few days ago. No anemia or thrombocytopenia. Chemistry panel without electrolyte derangement other than a mildly low magnesium, which is chronic for this patient. No kidney or liver dysfunction, troponin was negative x 2 checks without delta change. Lipase is low, and the Fluvid was negative. I independently reviewed the patient CT scan, and discussed with the radiologist the incidental finding of a 2 cm left renal mass, which will require MRI to evaluate for RCC. There were no other acute findings to explain these patient's symptoms, and I am most suspicious for gastritis given its similarity in presentation to her prior episodes of same. I provided the patient with a dose of Phenergan for ongoing nausea, Mylanta, and her first dose of omeprazole, and provided her with a 14-day course of omeprazole for acid management. The patient is not desiring of staying in the hospital for the symptoms, and I did stress to her the importance of outpatient follow-up for her incidental finding any symptoms that change, worsen, or persist. At this time, the patient has had a full medical evaluation and is safe for discharge to home. They are hemodynamically stable, ambulatory, and tolerating PO. They are understanding of the follow-up plan and return precautions. They left our facility without incident. Amirah Higuera MD Related Data Home Medications ?Medication ?Instructions ?Recorded ?Confirmed albuterol sulfate 90 mcg/actuation 2 puff inhalation Q6H PRN 06/27/19 07/08/24 aerosol inhaler (ProAir HFA) simvastatin 20 mg tablet 20 mg PO HS 06/27/19 07/08/24 varenicline tartrate 1 mg tablet 1 mg PO BID 06/27/19 07/08/24 (Chantix) nicotine 14 mg/24 hr daily 1 patch transdermal DAILY PRN 08/03/19 07/08/24 transdermal patch oxybutynin chloride 5 mg tablet 5 mg PO HS 02/04/22 07/08/24 sertraline 100 mg tablet 100 mg PO DAILY 02/04/22 07/08/24 clonazepam 0.5 mg tablet 0.5 mg PO DAILY PRN 04/15/22 07/08/24 buspirone 5 mg tablet 5 mg PO BID PRN 11/01/23 07/08/24 gabapentin 300 mg capsule 900 mg PO TID 11/01/23 07/08/24 atorvastatin 40 mg tablet 40 mg PO DAILY 07/02/24 07/08/24 buspirone 7.5 mg tablet 7.5 mg PO BID 07/02/24 07/08/24 carvedilol 25 mg tablet 25 mg PO BID 07/02/24 07/08/24 furosemide 20 mg tablet 20 mg PO [facility] 07/02/24 07/08/24 isosorbide mononitrate 30 mg 30 mg PO DAILY 07/02/24 07/08/24 tablet,extended release 24 hr lidocaine 5 % topical patch 1 patch topical DAILY 07/02/24 07/08/24 losartan 25 mg tablet 25 mg PO DAILY 07/02/24 07/08/24 nicotine 21 mg/24 hr daily 1 patch topical DAILY 07/02/24 07/08/24 transdermal patch ondansetron 4 mg disintegrating 4 mg PO Q8H PRN nausea and 07/02/24 07/08/24 tablet vomiting #30 tabs ondansetron 4 mg disintegrating 4 mg PO Q8H PRN nausea and 07/02/24 07/08/24 tablet vomiting #30 tabs oxcarbazepine 600 mg tablet 600 mg PO BID 07/02/24 07/08/24 tiotropium bromide 2.5 2 puff inhalation ONCE 07/02/24 07/08/24 mcg/actuation mist for inhalation (Spiriva Respimat) omeprazole 40 mg capsule,delayed 40 mg PO DAILY 14 days #14 caps 07/08/24 release Previous Rx's ?Medication ?Instructions ?Recorded ondansetron 4 mg disintegrating 4 mg PO Q8H PRN nausea and 07/02/24 tablet vomiting #30 tabs ondansetron 4 mg disintegrating 4 mg PO Q8H PRN nausea and 07/02/24 tablet vomiting #30 tabs omeprazole 40 mg capsule,delayed 40 mg PO DAILY 14 days #14 caps 07/08/24 release Allergies Allergy/AdvReac Type Severity Reaction Status Date / Time cefazolin sodium (From [facility]) Allergy Severe Anaphylaxsi Verified 07/08/24 13:07 s codeine Allergy Unknown unknown Verified 07/08/24 13:07 hay fever Allergy Mild Other (See Uncoded 07/08/24 13:07 Comment) General Stated Complaint: Abd Prob LISA: 3 Course Vital Signs Vital signs: Vital Signs Temperature 36.6 C 07/08/24 13:07 Pulse 81 07/08/24 13:07 Respiratory Rate 16 07/08/24 13:07 Blood Pressure 160/101 H 07/08/24 13:07 Pulse Oximetry 98 07/08/24 13:07 Temperature 36.6 C 07/08/24 13:07 Temperature Source Oral 07/08/24 13:07 Pulse 81 07/08/24 13:07 Respiratory Rate 16 07/08/24 13:07 Blood Pressure 160/101 H 07/08/24 13:07 Blood Pressure Position Sitting 07/08/24 13:07 Pulse Oximetry 98 07/08/24 13:07 Oxygen Delivery Method Room Air 07/08/24 13:07 Oxygen Flow Rate 0 07/08/24 13:07 Pain Level 8 07/08/24 13:07 Lab/Test Results Lab/Test Results: Laboratory Tests Range/Units 07/08/24 13:10 COVID-19 Source Nasopharynx SARS-CoV-2 (PCR) (Negative) Negative Influenza Type A (PCR) (Negative) Negative Influenza Type B (PCR) (Negative) Negative RSV (PCR) (Negative) Negative Medical Decision Making Quality:SDOH Health Related Social Needs: No Data to Display PFSH All Active Problems (Updated 07/08/24 @ 16:52 by Amirah Higuera MD) Left kidney mass (Acute) Gastritis (Acute) Nausea & vomiting (Acute) Non-ST elevation MA (NSTEMI) (Acute) Phenytoin toxicity (Acute) Trigeminal neuralgia pain (Acute) Colon cancer screening (Acute) Medical History Hypertension Anxiety disorder Urge incontinence Heart murmur, systolic Viral meningitis Liver disease Hyperlipidemia Alcohol abuse, in remission in remission for 13 years Cocaine abuse in remission in remission for 13 years History of hepatitis Hep C. pt. states she has been treated in 2004, states she did the Interferon treatment. Family history of chronic ischemic heart disease Family history of diabetes mellitus Tobacco use disorder Benign essential hypertension Onychomycosis Surgical History H/O tubal ligation Normal colonoscopy (~12/2019) Hx of section x2 Hx of cholecystectomy History of appendectomy Family History Mother Diabetes Emphysema lung Coronary artery disease Hypertension Hyperlipidemia Father Heart disease Coronary artery disease Hypertension Hyperlipidemia Sister Heart disease Coronary artery disease Diabetes Stroke Hypertension Hyperlipidemia Social History Smoking/Tobacco Use Status: Current every day Tobacco Type: cigarettes Quit status: quit date established Smoking risk assessment performed?: Yes Alcohol Intake: former Drug use: Occasionally Substance use type: marijuana Details: 13 years clean crack/cocaine Household members: none Housing: house Number of Children: 0 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
[2024-07-08] MEDS: ACETAMINOPHEN 1,000 MG/100 ML BAG 400 MG IVPB (15:10)
[2024-07-08] MEDS: FAMOTIDINE 20 MG in Normal Saline 100 ML 400 MG IVPB (15:11)
[2024-07-08] MEDS: Ondansetron 4 MG/2 ML VIAL IVP (15:11)
[2024-07-08 15:15] LABS: Abs Immature Grans 0.05 10^3/uL (0.0-0.06); Absolute Basophil Count 0.06 10^3/uL (0.0-0.2); Absolute Eosinophil Count 0.09 10^3/uL (0.0-0.7); Absolute Lymphocyte Count 3.22 10^3/uL (1.2-3.4); Absolute Monocyte Count 0.89 10^3/uL (0.1-0.8); Absolute Neutrophil Count 10.55 10^3/uL (1.2-6.7); Basophils % 0.4 %; Eosinophils % 0.6 %; HCT 46.8 % (36.0-46.0); HGB 16.6 g/dL (11.2-15.7); Immature Grans % 0.3 %; Lymphocytes % 21.7 %; MCHC 35.5 % (32.0-36.0); MCV 85 fL (80-95); MPV 9.9 fL (8.0-11.0); Platelet Count 322 10^3/uL (130-400); RBC 5.53 10^6/uL (3.93-5.22); RDW 11.9 % (11.7-14.6); RDW-SD 36.7 fL; WBC 14.86 10^3/uL (4.4-10.8)
[2024-07-08 15:35] LABS: ALT 21 U/L (14-59); AST 10 U/L (15-37); Albumin 3.6 g/dL (3.4-5.0); Alkaline Phosphatase 107 U/L (46-116); Anion Gap 8.6 mmol/L (3-11); BUN 14 mg/dL (7-18); Bilirubin, Total 0.73 mg/dL (0.2-1.0); CO2 27.4 mmol/L (21.0-32.0); CREATININE 0.7 mg/dL (0.55-1.02); Calcium 9.1 mg/dL (8.5-10.1); Chloride 99 mmol/L (98-107); Estimated GFR 102.71 (mL/min/1.73m2); Glucose 125 mg/dL (74-106); Lipase 33 U/L (<78); Magnesium 1.6 mg/dL (1.8-2.4); Potassium 3.5 mmol/L (3.5-5.1); Sodium 135 mmol/L (136-145); Total Protein 6.9 g/dL (6.4-8.2); Troponin I 20 ng/L (<or=51)
[2024-07-08] MEDS: Omnipaque 350 MG/ML 100 ML BTL IJ (15:54)
[2024-07-08] MEDS: Normal Saline - Diluent 50 ML VIAL IJ (15:55)
--- NOTE | 2024-07-08 16:30 | DI.VRAD_ITS ---
Addendum created by Paulo Fleming MD on 07/08/2024 4:43:46 PM EST: Addendum: The assessment of right kidney mass is nonemergent Initial report created on 07/08/2024 4:29:47 PM EST: PROCEDURE INFORMATION: Exam: CT Abdomen And Pelvis With Contrast Exam date and time: 07/08/2024 3:47 PM Age: 53 years old Clinical indication: Abdominal pain; Epigastric pain, n/v TECHNIQUE: Imaging protocol: Computed tomography of the abdomen and pelvis with contrast. COMPARISON: CT CHEST LUNG CANCER SCREEN 01/12/2024 9:59 AM FINDINGS: Liver: Normal. No mass. Gallbladder and biliary ducts: Cholecystectomy Pancreas: Normal. No ductal dilation. Spleen: Normal. No splenomegaly. Adrenal glands: Normal. No mass. Kidneys and ureters: 2 cm mass medial left kidney 46 Hounsfield units.. .Subcentimeter low attenuation area in the left kidney is too small for characterization. Stomach and bowel: Unremarkable. No obstruction. No mucosal thickening. Appendix: No evidence of appendicitis. Intraperitoneal space: Unremarkable. No free air. No significant fluid collection. Vasculature: Unremarkable. No abdominal aortic aneurysm. Lymph nodes: Unremarkable. No enlarged lymph nodes. Urinary bladder: Unremarkable as visualized. Reproductive: Unremarkable as visualized. Bones/joints: Unremarkable. No acute fracture. Soft tissues: Unremarkable. IMPRESSION: 2 cm mass medial left kidney 46 Hounsfield units.. Recommend MR without and with contrast or CT without and with contrast. MR is preferred for masses under 1.5 cm. Dictated and Authenticated by: Paulo Fleming MD. Orderin St. Kobi Macario MD
[2024-07-08 16:41] LABS: Troponin I 21 ng/L (<or=51)
[2024-07-08] MEDS: Promethazine 25 MG TAB PO (16:46)
[2024-07-08] MEDS: Mylanta Suspension 30 ML CUP PO (16:56)
[2024-07-08] MEDS: Omeprazole 20 MG CAPCR 40 MG PO (16:56)
[2024-07-08 17:16] VITALS: BP 160/110; PULSE 78; RESP 16; O2SAT 99
== END 2024-07-08 17:28 | disposition home or self-care (01) ==
PROVIDERS: Emergency Provider Emergency Medicine; PCP Physician Assistant
DX: K29.70 Gastritis, unspecified, without bleeding (principal); N28.89 Other specified disorders of kidney and ureter; I10 Essential (primary) hypertension; I25.10 Atherosclerotic heart disease of native coronary artery without angina pectoris; I25.2 Old myocardial infarction; F17.210 Nicotine dependence, cigarettes, uncomplicated
CPT/HCPCS: 80053; 83690; 87637; 96365; 96368; 96374; 99285; 74177; 83735; 84484; 85025; J0131; J2405; J3490

== ENCOUNTER 2024-07-10 14:38 | Emergency (ER) | payer BC, MEDICAID, SELFPAY ==
[2024-07-10 14:42] VITALS: BP 164/97; PULSE 81; RESP 22; TEMP 36.4; O2SAT 98
--- NOTE | 2024-07-10 15:15 | RT.EKG_ITS ---
APPROVED REPORT Exam: Resting ECG Reason for Exam: epigastric pain Patient Location: E HR:79 bpm ECG Measurements Heart Rate 79 AXIS IL 171 P 53 QRSd 99 QRS -34 QT 446 T 52 QTc 510 Conclusion Sinus rhythm...normal P axis, V-rate 60- 99 Left axis deviation...QRS axis (-30,-90) no ST segment or T wave abnormalities to suggest occlusive OR
[2024-07-10] MEDS: Acetaminophen 500 MG TAB 1000 MG PO (15:37)
[2024-07-10] MEDS: Sucralfate 1 GM TAB 2 GM PO (15:38)
[2024-07-10] MEDS: Ondansetron 4 MG/2 ML VIAL IVP (15:38)
[2024-07-10 15:43] LABS: Abs Immature Grans 0.08 10^3/uL (0.0-0.06); Absolute Basophil Count 0.07 10^3/uL (0.0-0.2); Absolute Eosinophil Count 0.11 10^3/uL (0.0-0.7); Absolute Lymphocyte Count 2.94 10^3/uL (1.2-3.4); Absolute Monocyte Count 0.82 10^3/uL (0.1-0.8); Basophils % 0.5 %; Eosinophils % 0.8 %; HCT 47.6 % (36.0-46.0); HGB 16.7 g/dL (11.2-15.7); Immature Grans % 0.6 %; Lymphocytes % 20.8 %; MCH 29.7 pg (27.0-33.0); MCHC 35.1 % (32.0-36.0); MCV 85 fL (80-95); MPV 9.8 fL (8.0-11.0); Monocytes % 5.8 %; Neutrophils % 71.5 %; Platelet Count 275 10^3/uL (130-400); RBC 5.62 10^6/uL (3.93-5.22); RDW-SD 36.4 fL; WBC 14.12 10^3/uL (4.4-10.8)
[2024-07-10] MEDS: Lidocaine 2% Viscous 15 ML CUP (15:49)
--- NOTE | 2024-07-10 15:59 | ED.GENADUL_ITS ---
Discharge Plan Disposition Patient Disposition: Home Condition: Good Discharge Details Clinical Impression: Gastritis Primary Care Provider: Raffi Nolasco ED Provider: Rita Sullivan Home Meds and New Rx's Prescriptions: New sucralfate [Carafate] 1 gram tablet 1 g PO BID Qty: 20 0RF Continued nicotine 14 mg/24 hr patch 24 hour 1 patch TD DAILY PRN varenicline tartrate [Chantix] 1 mg tablet 1 mg PO BID simvastatin 20 mg tablet 20 mg PO HS albuterol sulfate [ProAir HFA] 90 mcg/actuation HFA aerosol inhaler 2 puff IH Q6H PRN oxybutynin chloride 5 mg tablet 5 mg PO HS sertraline 100 mg tablet 100 mg PO DAILY clonazepam 0.5 mg tablet 0.5 mg PO DAILY PRN atorvastatin 40 mg tablet 40 mg PO DAILY Patient Comments: TAKE ONE TABLET BY MOUTH EVERY EVENING carvedilol 25 mg tablet 25 mg PO BID Patient Comments: TAKE ONE TABLET BY MOUTH TWICE A DAY isosorbide mononitrate 30 mg tablet extended release 24 hr 30 mg PO DAILY Patient Comments: TAKE ONE TABLET BY MOUTH EVERY DAY lidocaine 5 % adhesive patch,medicated 1 patch topical DAILY Patient Comments: APPLY ONE PATCH TOPICALLY EVERY DAY LEAVE ON 12 HOURS AND REMOVE FOR 12 HOURS losartan 25 mg tablet 25 mg PO DAILY Patient Comments: TAKE ONE TABLET BY MOUTH EVERY DAY nicotine 21 mg/24 hr patch 24 hour 1 patch topical DAILY Patient Comments: APPLY ONE PATCH TO THE SKIN EVERY DAY buspirone 7.5 mg tablet 7.5 mg PO BID Patient Comments: TAKE ONE TABLET BY MOUTH TWICE A DAY oxcarbazepine 600 mg tablet 600 mg PO BID Patient Comments: TAKE ONE TABLET BY MOUTH TWICE A DAY furosemide 20 mg tablet 20 mg PO QAM Patient Comments: TAKE ONE TABLET BY MOUTH EVERY MORNING Spiriva Respimat 2.5 mcg/actuation mist 2 puff INHALATION ONCE Patient Comments: INHALE TWO PUFFS BY MOUTH EVERY DAY ondansetron 4 mg tablet,disintegrating 4 mg PO Q8H PRN (Reason: nausea and vomiting) Qty: 30 0RF ondansetron 4 mg tablet,disintegrating 4 mg PO Q8H PRN (Reason: nausea and vomiting) Qty: 30 0RF buspirone 5 mg tablet 5 mg PO BID PRN Patient Comments: TAKE 1 TABLET BY MOUTH TWICE DAILY gabapentin 300 mg capsule 900 mg PO TID Patient Comments: TAKE 3 CAPSULES BY MOUTH THREE TIMES DAILY omeprazole 40 mg capsule,delayed release(DR/EC) 40 mg PO DAILY 14 Days Qty: 14 0RF Discharge Instructions Instructions: Gastritis ED Additional Instructions: Carafate twice a day. You can use the phenergan you have at home for N/V. Keep your primary care appointment on . Discuss your liver enzymes at this visit. Avoid fatty and salty foods. Return to the emergency department for new or worsening symptoms including fever, new/different/worse pain, inability to keep down fluids, or if you have any other concerns. Referrals: Raffi Nolasco [Primary Care Provider] - [facility] General Mode of arrival: EMS . Date/Time Provider Initiated Documentation: 07/10/24 14:49 . Limitations to Documentation: no limitations . Information obtained by: patient . HPI Narrative: 53yo F with hx HTN, HLD, gastritis presenting for epigastric pain. Seen in the ED recently for N/V/D which has been going on for about a week. Most recently discharged with phenergan and omeprazole. Was doing okay for the past two days, no further N/V, not taking phenergan. Diarrhea has resolved. Doing well with fluids, had oatmeal without issue. This afternoon ate barbadian fries and subsequently vomited, had recurrence of burning epigastric pain. Otherwise in her usual state of health with no fevers, chills, rash, dysuria, hematuria, chest pain, shortness of breath, or other concerns. Related Data Home Medications ?Medication ?Instructions ?Recorded ?Confirmed albuterol sulfate 90 mcg/actuation 2 puff inhalation Q6H PRN 06/27/19 07/10/24 aerosol inhaler (ProAir HFA) simvastatin 20 mg tablet 20 mg PO HS 06/27/19 07/10/24 varenicline tartrate 1 mg tablet 1 mg PO BID 06/27/19 07/10/24 (Chantix) nicotine 14 mg/24 hr daily 1 patch transdermal DAILY PRN 08/03/19 07/10/24 transdermal patch oxybutynin chloride 5 mg tablet 5 mg PO HS 02/04/22 07/10/24 sertraline 100 mg tablet 100 mg PO DAILY 02/04/22 07/10/24 clonazepam 0.5 mg tablet 0.5 mg PO DAILY PRN 04/15/22 07/10/24 buspirone 5 mg tablet 5 mg PO BID PRN 11/01/23 07/10/24 gabapentin 300 mg capsule 900 mg PO TID 11/01/23 07/10/24 atorvastatin 40 mg tablet 40 mg PO DAILY 07/02/24 07/10/24 buspirone 7.5 mg tablet 7.5 mg PO BID 07/02/24 07/10/24 carvedilol 25 mg tablet 25 mg PO BID 07/02/24 07/10/24 furosemide 20 mg tablet 20 mg PO QAM 07/02/24 07/10/24 isosorbide mononitrate 30 mg 30 mg PO DAILY 07/02/24 07/10/24 tablet,extended release 24 hr lidocaine 5 % topical patch 1 patch topical DAILY 07/02/24 07/10/24 losartan 25 mg tablet 25 mg PO DAILY 07/02/24 07/10/24 nicotine 21 mg/24 hr daily 1 patch topical DAILY 07/02/24 07/10/24 transdermal patch ondansetron 4 mg disintegrating 4 mg PO Q8H PRN nausea and 07/02/24 07/10/24 tablet vomiting #30 tabs ondansetron 4 mg disintegrating 4 mg PO Q8H PRN nausea and 07/02/24 07/10/24 tablet vomiting #30 tabs oxcarbazepine 600 mg tablet 600 mg PO BID 07/02/24 07/10/24 tiotropium bromide 2.5 2 puff inhalation ONCE 07/02/24 07/10/24 mcg/actuation mist for inhalation (Spiriva Respimat) omeprazole 40 mg capsule,delayed 40 mg PO DAILY 14 days #14 caps 07/08/24 release sucralfate 1 gram tablet (Carafate) 1 g PO BID #20 tabs 07/10/24 Previous Rx's ?Medication ?Instructions ?Recorded ondansetron 4 mg disintegrating 4 mg PO Q8H PRN nausea and 07/02/24 tablet vomiting #30 tabs ondansetron 4 mg disintegrating 4 mg PO Q8H PRN nausea and 07/02/24 tablet vomiting #30 tabs omeprazole 40 mg capsule,delayed 40 mg PO DAILY 14 days #14 caps 07/08/24 release sucralfate 1 gram tablet (Carafate) 1 g PO BID #20 tabs 07/10/24 Allergies Allergy/AdvReac Type Severity Reaction Status Date / Time cefazolin sodium (From [facility]) Allergy Severe Anaphylaxsi Verified 07/10/24 14:48 s codeine Allergy Unknown unknown Verified 07/10/24 14:48 hay fever Allergy Mild Other (See Uncoded 07/10/24 14:48 Comment) General Stated Complaint: Chest Pain LISA: 3 Review of Systems Narrative: see HPI Exam Narrative Exam Narrative: General: Alert, well appearing, well nourished, in no acute distress. Head: Normocephalic, atraumatic Neck: Trachea midline, ?Neck supple. ENT: ?MMM.? No oropharygeal lesions or exudate. Cardiac: ?RRR, no murmurs appreciated Resp: No respiratory distress. CTAB. Abd: ?Soft, non-distended, epigastric tenderness to palpation with no rebound or guarding. No RUQ tenderness. Negative Bazan's. : ?No suprapubic tenderness. Extremities: ?No deformities.? No peripheral edema. Neurologic: GCS 15. ? Moves all extremities freely against gravity Course Vital Signs Vital signs: Vital Signs Temperature 36.4 C L 07/10/24 14:42 Pulse 81 07/10/24 14:42 Respiratory Rate 22 07/10/24 14:42 Blood Pressure 164/97 H 07/10/24 14:42 Pulse Oximetry 98 07/10/24 14:42 Temperature 36.4 C L 07/10/24 14:42 Pulse 81 07/10/24 14:42 Respiratory Rate 22 07/10/24 14:42 Blood Pressure 164/97 H 07/10/24 14:42 Pulse Oximetry 98 07/10/24 14:42 Oxygen Delivery Method Room Air 07/10/24 14:42 Oxygen Flow Rate 0 07/10/24 14:42 Pain Level 10 07/10/24 14:42 Lab/Test Results Lab/Test Results: Laboratory Tests Range/Units 07/10/24 15:38 WBC (4.4-10.8) 10^3/uL 14.12 H RBC (3.93-5.22) 10^6/uL 5.62 H Hgb (11.2-15.7) g/dL 16.7 H Hct (36.0-46.0) % 47.6 H MCV (80-95) fL 85 MCH (27.0-33.0) pg 29.7 MCHC (32.0-36.0) % 35.1 RDW (11.7-14.6) % 12.0 Plt Count (130-400) 10^3/uL 275 MPV (8.0-11.0) fL 9.8 Immature Gran % % 0.6 Neutrophils % % 71.5 Lymphocytes % % 20.8 Monocytes % % 5.8 Eosinophils % % 0.8 Basophils % % 0.5 Nucleated RBC % (0.0-0.3) % 0.0 Absolute Neutrophils (1.2-6.7) 10^3/uL 10.10 H Absolute Lymphocytes (1.2-3.4) 10^3/uL 2.94 Absolute Monocytes (0.1-0.8) 10^3/uL 0.82 H Absolute Eosinophils (0.0-0.7) 10^3/uL 0.11 Absolute Basophils (0.0-0.2) 10^3/uL 0.07 Medical Decision Making 53yo F with hx HTN, HLD, gastritis presenting for epigastric pain. Seen in the ED recently for N/V/D which has been going on for about a week. Most recently discharged with phenergan and omeprazole. Doing well until she ate barbadian fries and subsequently vomited, had recurrence of burning epigastric pain. Most recent ED visit reviewed with reassuring labs at that time. CT two days ago with no acute findings, mildly enlarged liver, GB surgically absent. Will give GI cocktail, carafate, tylenol, and zofran while awaiting results of workup. . -EKG with no ST segment or T wave abnormalities to suggest occlusive OH. -Labs reviewed as below, CBC with mild leukocytosis unchanged from two days ago (non specific), CMP with mildly elevated bili/AST/ALT/ALP and increased from 2 days prior as well as K of 2.8 (repeat sent to confirm at was 3.4), lipase normal (not pancreatitis), troponin normal x 2. -40meQ oral potassium replacement given. On reassessment patient reports pain has resolved after treatment. No epigastric or RUQ tenderness on exam. I discussed her liver enzymes with her and we discussed option of transfer for ultrasound as well as hepatitis labs. As she is feeling much better, she would prefer to go home and followup with her PCP at her appointment scheduled on . Does not want to wait for labs or transfer elsewhere for ultrasound. As she already has followup scheduled and her symptoms have resolved I feel this is not an unreasonable plan. Discharged home; discharge instructions and return precautions were reviewed with patient who verbalized understanding. All questions were answered and she is in full agreement with the plan. Lab Data Lab results reviewed: Yes I reviewed the patient's lab results. Labs: Laboratory Tests Range/Units 07/10/24 07/10/24 15:38 17:29 WBC (4.4-10.8) 10^3/uL 14.12 H RBC (3.93-5.22) 10^6/uL 5.62 H Hgb (11.2-15.7) g/dL 16.7 H Hct (36.0-46.0) % 47.6 H MCV (80-95) fL 85 MCH (27.0-33.0) pg 29.7 MCHC (32.0-36.0) % 35.1 RDW (11.7-14.6) % 12.0 Plt Count (130-400) 10^3/uL 275 MPV (8.0-11.0) fL 9.8 Immature Gran % % 0.6 Neutrophils % % 71.5 Lymphocytes % % 20.8 Monocytes % % 5.8 Eosinophils % % 0.8 Basophils % % 0.5 Nucleated RBC % (0.0-0.3) % 0.0 Absolute Neutrophils (1.2-6.7) 10^3/uL 10.10 H Absolute Lymphocytes (1.2-3.4) 10^3/uL 2.94 Absolute Monocytes (0.1-0.8) 10^3/uL 0.82 H Absolute Eosinophils (0.0-0.7) 10^3/uL 0.11 Absolute Basophils (0.0-0.2) 10^3/uL 0.07 Sodium (136-145) mmol/L 136 Potassium (3.5-5.1) mmol/L 2.8 L* 3.4 L Chloride (98-107) mmol/L 99 Carbon Dioxide (21.0-32.0) mmol/L 29.5 Anion Gap (3-11) mmol/L 7.5 BUN (7-18) mg/dL 19 H Creatinine (0.55-1.02) mg/dL 0.9 Est GFR (CKD-EPI 2020) (mL/min/1.73m2) 75.97 Glucose (74-106) mg/dL 184 H Calcium (8.5-10.1) mg/dL 9.0 Total Bilirubin (0.2-1.0) mg/dL 1.62 H AST (15-37) U/L 125 H ALT (14-59) U/L 82 H Alkaline Phosphatase (46-116) U/L 121 H Troponin I (<or=51) ng/L 23 Total Protein (6.4-8.2) g/dL 6.7 Albumin (3.4-5.0) g/dL 3.6 Lipase (<78) U/L 62 Quality:SDOH Health Related Social Needs: No Data to Display PFSH All Active Problems (Updated 07/10/24 @ 19:36 by Rita Sullivan MD) Gastritis (Acute) Left kidney mass (Acute) Gastritis (Acute) Nausea & vomiting (Acute) Non-ST elevation OH (NSTEMI) (Acute) Phenytoin toxicity (Acute) Trigeminal neuralgia pain (Acute) Colon cancer screening (Acute) Medical History Hypertension Anxiety disorder Urge incontinence Heart murmur, systolic Viral meningitis Liver disease Hyperlipidemia Alcohol abuse, in remission in remission for 13 years Cocaine abuse in remission in remission for 13 years History of hepatitis Hep C. pt. states she has been treated in 2004, states she did the Interferon treatment. Family history of chronic ischemic heart disease Family history of diabetes mellitus Tobacco use disorder Benign essential hypertension Onychomycosis Surgical History H/O tubal ligation Normal colonoscopy (~12/2019) Hx of section x2 Hx of cholecystectomy History of appendectomy Family History Mother Diabetes Emphysema lung Coronary artery disease Hypertension Hyperlipidemia Father Heart disease Coronary artery disease Hypertension Hyperlipidemia Sister Heart disease Coronary artery disease Diabetes Stroke Hypertension Hyperlipidemia Social History Smoking/Tobacco Use Status: Current every day Tobacco Type: cigarettes Quit status: quit date established Smoking risk assessment performed?: Yes Alcohol Intake: current Drug use: Occasionally Substance use type: marijuana Details: 13 years clean crack/cocaine Household members: none Housing: house Number of Children: 0 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
[2024-07-10 16:54] LABS: ALT 82 U/L (14-59); AST 125 U/L (15-37); Albumin 3.6 g/dL (3.4-5.0); Alkaline Phosphatase 121 U/L (46-116); Anion Gap 7.5 mmol/L (3-11); BUN 19 mg/dL (7-18); Bilirubin, Total 1.62 mg/dL (0.2-1.0); CO2 29.5 mmol/L (21.0-32.0); CREATININE 0.9 mg/dL (0.55-1.02); Chloride 99 mmol/L (98-107); Estimated GFR 75.97 (mL/min/1.73m2); Glucose 184 mg/dL (74-106); Lipase 62 U/L (<78); Sodium 136 mmol/L (136-145); Total Protein 6.7 g/dL (6.4-8.2); Troponin I 23 ng/L (<or=51)
[2024-07-10 16:58] LABS: Potassium 2.8 mmol/L (3.5-5.1)
[2024-07-10] MEDS: Potassium Chloride 20 MEQ TABCR 40 MEQ PO (17:13)
[2024-07-10 17:41] LABS: Potassium 3.4 mmol/L (3.5-5.1)
[2024-07-10 17:43] VITALS: RESP 16
[2024-07-10 17:52] VITALS: BP 149/73; PULSE 86; RESP 19; TEMP 36.5; O2SAT 96
[2024-07-10 18:43] VITALS: BP 150/90; PULSE 78; RESP 18; O2SAT 98
[2024-07-10 19:43] VITALS: BP 170/115; PULSE 85; RESP 16; O2SAT 99
== END 2024-07-10 19:43 | disposition home or self-care (01) ==
PROVIDERS: Emergency Provider Student in an Organized Health Care Education/Training Program; PCP Physician Assistant
DX: K52.9 Noninfective gastroenteritis and colitis, unspecified (principal)
CPT/HCPCS: 36415; 80053; 83690; 93005; 96374; 99284; 84132; 84484; 85025; 93010; 99283; J2405

== ENCOUNTER 2024-08-11 00:14 | Outpatient (CLI) | payer BC, MEDICAID, SELFPAY ==
--- NOTE | 2024-08-11 | DI.MRI_ITS ---
Exam(s) MR ABDOMEN WO/W EXAM: MR ABDOMEN WO/W CLINICAL HISTORY: Renal mass, N28.89, 2 cm lesion to rt kidney on CT 07/09/24, MRI f/u TECHNIQUE: Multiplanar multisequence MRI of the Abdomen was performed. CONTRAST MATERIAL: IV Contrast: 14 mL of Dotarem contrast administered. COMPARISON: CT CT ABDOMEN PELVIS W from 07/08/2024 FINDINGS: Lung bases: Unremarkable. Liver: There is no evidence of a hepatic mass. There is no intrahepatic biliary ductal dilatation. The liver shows normal signal intensity. Pancreas: Unremarkable. Gallbladder and Bile Ducts: Status post cholecystectomy. There is no significant biliary ductal dila tation. Adrenals: Unremarkable. Kidneys: There is a 2.2 cm cyst in the medial aspect of the superior right kidney. There is no enhan cement. This corresponds to the finding on the CT examination. No solid renal mass is identified. There is no evidence of obstructive uropathy. There is a simple 7 mm cyst in the superior pole of th e left kidney. No follow-up is recommended. Spleen: Unremarkable. Bowel: There is no evidence of bowel obstruction or bowel wall thickening. Aorta: The infrarenal abdominal aorta measures up to 2.7 cm. Soft Tissues: Unremarkable. Bone: Unremarkable. Lymph Nodes: Unremarkable. IMPRESSION: 1. Bilateral renal cysts. No follow-up is recommended. 2. No evidence of a solid renal mass. DATA REPOSITORY:
[2024-08-11] MEDS: Gadoterate meglumine 20 ML VIAL 14 ML IVP (10:21)
[2024-08-11] MEDS: Normal Saline - Diluent 50 ML VIAL 25 ML IJ (10:22)
== END 2024-08-11 00:34 ==
LOC: DI 00:14
PROVIDERS: PCP Physician Assistant; Visit Provider Nurse Practitioner Family
DX: N28.89 Other specified disorders of kidney and ureter (principal)
CPT/HCPCS: 74183

== ENCOUNTER 2024-08-22 13:04 | Outpatient (REF) | payer BC, MEDICAID, SELFPAY ==
[2024-08-22 16:49] LABS: Anion Gap 10.6 mmol/L (3-11); BUN 8 mg/dL (7-18); CO2 26.4 mmol/L (21.0-32.0); CREATININE 0.8 mg/dL (0.55-1.02); Calcium 9.2 mg/dL (8.5-10.1); Calculated LDL 105 mg/dL (<100); Chloride 104 mmol/L (98-107); Cholesterol 173 mg/dL (<200); Glucose 116 mg/dL (74-106); HDL Cholesterol 45 mg/dL (>or=50); Potassium 4.4 mmol/L (3.5-5.1); Sodium 141 mmol/L (136-145); Triglyceride 117 mg/dL (<150)
== END 2024-08-22 13:05 | disposition home or self-care (01) ==
LOC: NCHCN 13:04
PROVIDERS: PCP Physician Assistant; Visit Provider Student in an Organized Health Care Education/Training Program
DX: E78.5 Hyperlipidemia, unspecified (principal); E87.6 Hypokalemia
CPT/HCPCS: 80048; 80061

== ENCOUNTER 2024-08-22 14:51 | Outpatient (RCR) | payer BC, MEDICAID, SELFPAY | END 2024-08-28 23:59 | disposition home or self-care (01) | LOC: CR 14:51 | PROVIDERS: PCP Physician Assistant; Visit Provider Internal Medicine Cardiovascular Disease ==

== ENCOUNTER 2024-09-01 11:15 | Outpatient (RCR) | payer BC, MEDICAID, SELFPAY ==
--- NOTE | 2024-09-01 10:45 | RT.EKG_ITS ---
APPROVED REPORT Exam: Resting ECG Reason for Exam: Baseline Patient Location: O HR:49 bpm ECG Measurements Heart Rate 49 AXIS PA 198 P 64 QRSd 94 QRS 11 QT 479 T 18 QTc 433 Conclusion Sinus bradycardia...rate< 50 Otherwise normal ECG
== END 2024-09-27 23:59 | disposition home or self-care (01) ==
LOC: CR 11:15
PROVIDERS: PCP Physician Assistant; Visit Provider Internal Medicine Cardiovascular Disease

== ENCOUNTER 2024-09-27 08:19 | Outpatient (RCR) | payer BC, MEDICAID, SELFPAY | END 2024-09-27 23:59 | disposition home or self-care (01) | LOC: CR 08:19 | PROVIDERS: PCP Physician Assistant; Visit Provider Internal Medicine Cardiovascular Disease | DX: I25.10 Atherosclerotic heart disease of native coronary artery without angina pectoris (principal); I21.4 Non-ST elevation (NSTEMI) myocardial infarction; Z51.89 Encounter for other specified aftercare | CPT/HCPCS: S9472 ==

== ENCOUNTER 2024-09-30 08:58 | Emergency (ER) | payer BC, MEDICAID, SELFPAY ==
[2024-09-30] VITALS (165 sets, daily range): BP systolic 151–231; BP diastolic 92–182; PULSE 44–104; RESP 12–35; TEMP 35.6–37.2; O2SAT 55–98
--- NOTE | 2024-09-30 09:00 | DI.RAD_ITS ---
Exam(s) XR PORTABLE CHEST AP EXAM: XR PORTABLE CHEST AP CLINICAL HISTORY: Resp distress TECHNIQUE: 2D digital imaging was performed. COMPARISON: CR,XR XR CHEST 2V PA LATERAL from 07/02/2024 FINDINGS: Exam is limited by overlying monitoring leads. LUNGS: Diffusely increased bilateral interstitial markings and peribronchial thickening. Findings co uld represent pulmonary edema versus secondary to diffuse infection. No pleural abnormality seen. HEART: Normal size. Mediastinum: Aorta normal diameter. Prominent pulmonary vasculature compared to prior. BONES: Unremarkable for age. Soft tissues: Unremarkable. IMPRESSION: Pulmonary edema versus diffuse pneumonitis. DATA REPOSITORY: RADIATION DOSE DELIVERED:
--- NOTE | 2024-09-30 09:00 | RT.EKG_ITS ---
APPROVED REPORT Exam: Resting ECG Reason for Exam: SOB Patient Location: E HR:98 bpm ECG Measurements Heart Rate 98 AXIS RI 197 P 84 QRSd 128 QRS -60 QT 384 T 111 QTc 489 Conclusion Sinus rhythm...normal P axis, V-rate 60- 99 Borderline prolonged RI interval...RI >197, V-rate 91-120 Probable left atrial enlargement...P >50mS, <-0.10mV V1 Left bundle branch block...QRSd>120, broad/notched R ST elevation secondary to IVCD...Multiple VCG criteria New left bundle branch block not meeting Sgarbossa with artifacts met criteria for ischemia.
--- NOTE | 2024-09-30 09:18 | W.ED.GENAD ---
Discharge Plan Disposition Patient Disposition: Transfer-Acute Inpatient Care Specific Acute Inpt Facility: [facility] Condition: Serious Discharge Details Clinical Impression: Acute respiratory failure with hypoxia and hypercarbia, Pulmonary edema, Non-ST elevation IN (NSTEMI) Primary Care Provider: Raffi Nolasco ED Provider: Jenna Jean Home Meds and New Rx's Prescriptions: No Action nicotine 14 mg/24 hr patch 24 hour 1 patch TD DAILY PRN simvastatin 20 mg tablet 20 mg PO HS albuterol sulfate [ProAir HFA] 90 mcg/actuation HFA aerosol inhaler 2 puff IH Q6H PRN oxybutynin chloride 5 mg tablet 5 mg PO HS sertraline 100 mg tablet 100 mg PO DAILY clonazepam 0.5 mg tablet 0.5 mg PO DAILY PRN atorvastatin 40 mg tablet 40 mg PO DAILY Patient Comments: TAKE ONE TABLET BY MOUTH EVERY EVENING carvedilol 25 mg tablet 25 mg PO BID Patient Comments: TAKE ONE TABLET BY MOUTH TWICE A DAY isosorbide mononitrate 30 mg tablet extended release 24 hr 30 mg PO DAILY Patient Comments: TAKE ONE TABLET BY MOUTH EVERY DAY lidocaine 5 % adhesive patch,medicated 1 patch topical DAILY Patient Comments: APPLY ONE PATCH TOPICALLY EVERY DAY LEAVE ON 12 HOURS AND REMOVE FOR 12 HOURS losartan 25 mg tablet 25 mg PO DAILY Patient Comments: TAKE ONE TABLET BY MOUTH EVERY DAY nicotine 21 mg/24 hr patch 24 hour 1 patch topical DAILY Patient Comments: APPLY ONE PATCH TO THE SKIN EVERY DAY buspirone 7.5 mg tablet 7.5 mg PO BID Patient Comments: TAKE ONE TABLET BY MOUTH TWICE A DAY oxcarbazepine 600 mg tablet 600 mg PO BID Patient Comments: TAKE ONE TABLET BY MOUTH TWICE A DAY furosemide 20 mg tablet 20 mg PO QAM Patient Comments: TAKE ONE TABLET BY MOUTH EVERY MORNING Spiriva Respimat 2.5 mcg/actuation mist 2 puff INHALATION ONCE Patient Comments: INHALE TWO PUFFS BY MOUTH EVERY DAY ondansetron 4 mg tablet,disintegrating 4 mg PO Q8H PRN (Reason: nausea and vomiting) Qty: 30 0RF ondansetron 4 mg tablet,disintegrating 4 mg PO Q8H PRN (Reason: nausea and vomiting) Qty: 30 0RF gabapentin 300 mg capsule 900 mg PO TID Patient Comments: TAKE 3 CAPSULES BY MOUTH THREE TIMES DAILY HPI General Date/Time Provider Initiated Documentation: 09/30/24 09:01. Limitations to Documentation: physical limitation. Information obtained by: patient, RN notes reviewed and old records reviewed. HPI Narrative: 84-year-old female presents to the ER cyanotic, clammy mottled O2 sat in the 50s to 60s on room air. She presents after being awoken by shortness of breath approximately an hour and a half ago. She took her Spiriva inhaler without relief. She reports that she is going through cardiac rehab for previous IN. She does take 20 mg of Lasix every day, carvedilol isosorbide mononitrate and simvastatin. She presents in respiratory distress. Nonrebreather placed on patient seen at 15 L upon arrival into room, color improved. Past medical history includes CAD, NSTEMI in November 2023, hep C, hysterectomy, hyperlipidemia hypertension Related Data Home Medications ?Medication ?Instructions ?Recorded ?Confirmed albuterol sulfate 90 mcg/actuation 2 puff inhalation Q6H PRN 06/27/19 09/30/24 aerosol inhaler (ProAir HFA) simvastatin 20 mg tablet 20 mg PO HS 06/27/19 09/30/24 nicotine 14 mg/24 hr daily 1 patch transdermal DAILY PRN 08/03/19 09/30/24 transdermal patch oxybutynin chloride 5 mg tablet 5 mg PO HS 02/04/22 09/30/24 sertraline 100 mg tablet 100 mg PO DAILY 02/04/22 09/30/24 clonazepam 0.5 mg tablet 0.5 mg PO DAILY PRN 04/15/22 09/30/24 gabapentin 300 mg capsule 900 mg PO TID 11/01/23 09/30/24 atorvastatin 40 mg tablet 40 mg PO DAILY 07/02/24 09/30/24 buspirone 7.5 mg tablet 7.5 mg PO BID 07/02/24 09/30/24 carvedilol 25 mg tablet 25 mg PO BID 07/02/24 09/30/24 furosemide 20 mg tablet 20 mg PO QAM 07/02/24 09/30/24 isosorbide mononitrate 30 mg 30 mg PO DAILY 07/02/24 09/30/24 tablet,extended release 24 hr lidocaine 5 % topical patch 1 patch topical DAILY 07/02/24 09/30/24 losartan 25 mg tablet 25 mg PO DAILY 07/02/24 09/30/24 nicotine 21 mg/24 hr daily 1 patch topical DAILY 07/02/24 09/30/24 transdermal patch ondansetron 4 mg disintegrating 4 mg PO Q8H PRN nausea and 07/02/24 09/30/24 tablet vomiting #30 tabs ondansetron 4 mg disintegrating 4 mg PO Q8H PRN nausea and 07/02/24 09/30/24 tablet vomiting #30 tabs oxcarbazepine 600 mg tablet 600 mg PO BID 07/02/24 09/30/24 tiotropium bromide 2.5 2 puff inhalation ONCE 07/02/24 09/30/24 mcg/actuation mist for inhalation (Spiriva Respimat) Previous Rx's ?Medication ?Instructions ?Recorded ondansetron 4 mg disintegrating 4 mg PO Q8H PRN nausea and 07/02/24 tablet vomiting #30 tabs ondansetron 4 mg disintegrating 4 mg PO Q8H PRN nausea and 07/02/24 tablet vomiting #30 tabs Allergies Allergy/AdvReac Type Severity Reaction Status Date / Time cefazolin sodium (From Anc) Allergy Severe Anaphylaxsi Verified 07/10/24 14:48 s codeine Allergy Unknown unknown Verified 07/10/24 14:48 hay fever Allergy Mild Other (See Uncoded 07/10/24 14:48 Comment) General Stated Complaint: SOB LISA: 1 Review of Systems Cardiovascular Cardiovascular: Reports acrocyanosis and Reports dyspnea Respiratory Respiratory: Reports as per HPI and Reports dyspnea Exam Narrative Exam Narrative: Constitutional: Tachypneic, somnolent, cyanotic, clammy, mottled. Head: Normocephalic, no trauma. Eyes: Pupils PERRL, Red reflex noted, EOM's intact. Eyelids symmetrical without lesions, discharge, or swelling. ENT: Bilateral TM's WNL, External ear normal to inspection, no mastoid TTP, swelling, or erythema, Nasal turbinates WNL, no nasal discharge. Normal dentition, Posterior pharynx WNL, no exudate. Chest: Wide QRS complex with a rate of 45 initially, tachycardic thereafter. Resp: In respiratory distress, diminished lung sounds bilaterally Abdomen: Soft, non-distended, Normoactive bowel sounds all 4 quads. Musculoskeletal: Unable to assess gait, cool clammy mottled extremities. Skin: No suspicious rashes or lesions. Neurologic: No focal neurodeficits, initially somnolent but answering questions appropriately. In respiratory distress. Hematologic/Lymphatic: No ecchymosis, no lymphadenopathy. Course Vital Signs Vital signs: Vital Signs Pulse 63 09/30/24 09:04 Respiratory Rate 20 09/30/24 09:04 Pulse Oximetry 55 L 09/30/24 09:04 Pulse 97 H 09/30/24 09:09 Pulse 100 H 09/30/24 09:11 Respiratory Rate 29 H 09/30/24 09:11 Blood Pressure 230/155 H 09/30/24 09:09 Blood Pressure Mean 174 09/30/24 09:09 Blood Pressure Position Sitting 09/30/24 09:06 Pulse Oximetry 84 L 09/30/24 09:11 Oxygen Delivery Method Non-Rebreather 09/30/24 09:11 Oxygen Flow Rate 15 09/30/24 09:11 Medical Decision Making Requested Dr. Ma's presence at bedside, he did do a POCUS cardiac echo, B-lines noted. Reduced ejection fraction. Patient placed on nonrebreather upon arrival into the room. Color improved. O2 sat with a poor Plath is approximately 79 to 80%, repeat after 15 L nonrebreather and BiPAP she is satting 88 to 90% on . patient states she does not want to be intubated, but agrees to BIPAP. RT called and is at bedside, BiPAP ordered. Suspect decompensated cardiogenic shock with respiratory distress. Patient is hypertensive, heart rate 99. Will give Lasix and nitro glycerin drip with a 500mcg bolus. Dr. Ma recommends 500 mcg nitroglycerin bolus. He is normally on 20 mg furosemide daily. VBG PH 7.09 Co2 77, RT aware. Nitroglycerin drip ordered at 80 mics per minute initially. Will give 500 bolus. 40 mg of Lasix IV ordered initially will consider an additional 40. EKG was reviewed by myself and Dr. Ma ER attending, new bundle branch block noted, old EKG available for review. Please see official report. 0929:Patient's oxygen saturation is 93 to 94% on BiPAP. X-ray result confirms pulmonary edema. On patient reevaluation she is feeling somewhat better. She is receiving the bolus of 400mcg Ntg now. An additional 40 mg Furosemide IV ordered, Troponin 70, 1010: [facility] [place] for transfer request. Repeat EKG, VBG, ordered. 1026: Dr. Gary Montes from [facility] given patient case and details who tentavily accepts patient pending repeat troponin. If Troponin is 100 or less, ok to transfer. Will call back with results. Repeat troponin is 164, relayed that to the [facility] accepting physician is Dr. Gary Worthington who agrees to accept patient for transfer. We are at this time awaiting for bed assignment. Repeat VBG is much improved, RT at bedside to do a trial off the BiPAP. Patient is on 3 L nasal cannula satting 94%. Patient is continuing to have no chest pain. Reconnected with the [facility] for the updates and taking the patient off of BiPAP. They will connect with Dr. Worthington and call me back. Patient is now on 2 L nasal cannula O2 sat is 94%, she did have an episode of feeling nauseated, she is having slight arrhythmia, denies any chest pain denies any shortness of breath. Will stop the nitro drip at this time. Repeat BMP ordered. She has had a liter of urine output since the 80 of Lasix. At this time questioning whether transfer to [place] is appropriate as they do not have a Agricultural Technical Officer. Will reconnect with accepting facility. 1200: Spoke with Dr. Leonardo with [facility], he would like to see the third troponin resulted if it is uptrending he recommends transfer to cath capable facility if it is flat she could potentially be monitored locally. Will reconnect after the third troponin. 1253: 3rd Troponin 274, [facility] [place] called. 1304: Spoke again with Dr. Leonardo who agrees to accept patient for transfer for NSTEMI he recommends heparin drip, 600 mg Plavix and atorvastatin. The accepting physician will be Abhinav Betancourt. Patient informed of plan of care and verbalizes understanding, orders placed. Heparin started, O2 sat 88 to 89% on 4 L. Patient placed back on BiPAP by staff nuclear medicine technologist. Will order another VBG. Repeat VBG shows pH of 7.38, CO2 43 PO261 bicarb 26 O2 sat 91. This is much improved. At this time awaiting bed placement at [facility]. Care is to be handed off to oncoming provider GARY Raymond pending bed assignment and transfer to [facility]. Discussed patient case in details with her. Blood pressure is 203/[address] patient back on the nitro drip at 80 mics per minute. staff nuclear medicine technologist aware. Patient is still not complaining of any chest pain or shortness of breath at this time. This text was generated using [employer] dictation system, please disregard any oddities of phrase or misspellings. Differential Diagnosis Differential Diagnosis: IN, CAD, CHF, pulmonary edema, cardiogenic shock, PE Medical Records Medical records reviewed: Yes I reviewed the patient's medical records. Imaging Data Radiologic Study: Imaging: X-Ray Radiologist's impression: Exam: XR Chest Exam date and time: 09/30/2024 9:38 AM Age: 54 years old Clinical indication: Other: Resp distress TECHNIQUE: Imaging protocol: Radiologic exam of the chest. Views: 1 view. COMPARISON: CR XR CHEST 2V PA LATERAL 07/02/2024 6:09 AM FINDINGS: Lungs: Diffuse bilateral interstitial opacities. Mild pulmonary vascular congestion. Pleural spaces: No large pleural effusion seen. Heart/Mediastinum: No cardiomegaly. Bones/joints: No acute abnormality. IMPRESSION: Diffuse bilateral interstitial opacities suggestive of edema. Infection is a differential consideration. Follow-up as clinically warranted. Thank you for allowing us to participate in the care of your patient. Dictated and Authenticated by: Verenice Williamson MD Lab Data Lab results reviewed: Yes I reviewed the patient's lab results. Labs: Laboratory Tests Range/Units 09/30/24 09/30/24 09/30/24 09:10 09:53 10:10 WBC (4.4-10.8) 10^3/uL 28.52 H* RBC (3.93-5.22) 10^6/uL 6.43 H Hgb (11.2-15.7) g/dL 19.4 H* Hct (36.0-46.0) % 59.5 H* MCV (80-95) fL 93 MCH (27.0-33.0) pg 30.2 MCHC (32.0-36.0) % 32.6 RDW (11.7-14.6) % 13.5 Plt Count (130-400) 10^3/uL 396 MPV (8.0-11.0) fL 10.4 Immature Gran % See Differential Neutrophils % % 69.0 Lymphocytes % % 20.0 Atypical Lymphs % % 5 Monocytes % % 4.0 Eosinophils % % 1.0 Basophils % % 1.0 Nucleated RBC % (0.0-0.3) % 0.0 Absolute Neutrophils (1.2-6.7) 10^3/uL 19.68 H Absolute Lymphocytes (1.2-3.4) 10^3/uL 7.13 H Absolute Monocytes (0.1-0.8) 10^3/uL 1.14 H Absolute Eosinophils (0.0-0.7) 10^3/uL 0.29 Absolute Basophils (0.0-0.2) 10^3/uL 0.29 H RBC Morphology Normal PT (9.1-11.1) sec 11.0 INR (0.9-1.1) 1.1 APTT (20.6-30.2) sec 27.2 D-Dimer (<500) ng/mlFEU 800 H VBG pH (7.31-7.41) 7.09 L* 7.27 L VBG pCO2 (41-51) mmHg 77 H* 54 H VBG pO2 mmHg 29 44 VBG HCO3 (23-28) mmol/L 23 25 VBG Total CO2 (24-29) mmol/L 22 L 22 L VBG O2 Saturation % 36 74 VBG Base Excess (-2-3) mmol/L -6 L -2 VBG Lactate (<or=2.0) mmol/L Sodium (136-145) mmol/L 141 Potassium (3.5-5.1) mmol/L 4.4 Chloride (98-107) mmol/L 102 Carbon Dioxide (21.0-32.0) mmol/L 25.4 Anion Gap (3-11) mmol/L 13.6 H BUN (7-18) mg/dL 12 Creatinine (0.55-1.02) mg/dL 1.1 H Est GFR (CKD-EPI 2020) (mL/min/1.73m2) 59.34 Glucose (74-106) mg/dL 304 H Calcium (8.5-10.1) mg/dL 10.2 H Magnesium (1.8-2.4) mg/dL 2.3 Total Bilirubin (0.2-1.0) mg/dL 0.9 AST (15-37) U/L 15 ALT (14-59) U/L 24 Alkaline Phosphatase (46-116) U/L 142 H Troponin I (<or=51) ng/L 70 H* 164 H* NT-Pro-B Natriuret Pep (<300) pg/mL 494 H Total Protein (6.4-8.2) g/dL 8.7 H Albumin (3.4-5.0) g/dL 4.4 Lipase (<78) U/L 34 Urine Color (Yellow) Yellow Urine Clarity (Clear) Sl Cloudy Urine pH (5-8) 7.0 Ur Specific Adair (1.005-1.025) 1.020 Urine Protein (Neg-Trace) mg/dL >=300 H Urine Ketones (Negative) mg/dL Negative Urine Blood (Negative) Trace-intact H Urine Nitrite (Negative) Negative Urine Bilirubin (Negative) Negative Urine Urobilinogen (Up to 0.2) mg/dL 1.0 H Ur Leukocyte Esterase (Negative) Negative Urine RBC (0-2) HPF 0-2 Urine WBC (0-5) HPF 0-2 Ur Epithelial Cells (Negative) HPF Moderate Urine Crystals (Negative) HPF Negative Urine Bacteria (Negative) HPF Moderate Urine Casts (Negative) LPF Negative Urine Mucus (Negative) Trace Ur Culture Indicated? No Urine Glucose (Negative) mg/dL >=1000 H Urine Opiates Screen (Negative) Negative Urine Methadone Screen (Negative) Negative Ur Barbiturates Screen (Negative) Negative Ur Tricyclics Screen (Negative) Negative Ur Amphetamines Screen (Negative) Negative U Benzodiazepines Scrn (Negative) Negative Urine Cocaine Screen (Negative) Negative Ur THC Screen (Negative) Positive A COVID-19 Source SARS-CoV-2 (PCR) (Negative) Influenza Type A (PCR) (Negative) Influenza Type B (PCR) (Negative) RSV (PCR) (Negative) Range/Units 09/30/24 09/30/24 09/30/24 10:15 11:15 11:30 WBC (4.4-10.8) 10^3/uL RBC (3.93-5.22) 10^6/uL Hgb (11.2-15.7) g/dL Hct (36.0-46.0) % MCV (80-95) fL MCH (27.0-33.0) pg MCHC (32.0-36.0) % RDW (11.7-14.6) % Plt Count (130-400) 10^3/uL MPV (8.0-11.0) fL Immature Gran % Neutrophils % % Lymphocytes % % Atypical Lymphs % % Monocytes % % Eosinophils % % Basophils % % Nucleated RBC % (0.0-0.3) % Absolute Neutrophils (1.2-6.7) 10^3/uL Absolute Lymphocytes (1.2-3.4) 10^3/uL Absolute Monocytes (0.1-0.8) 10^3/uL Absolute Eosinophils (0.0-0.7) 10^3/uL Absolute Basophils (0.0-0.2) 10^3/uL RBC Morphology PT (9.1-11.1) sec INR (0.9-1.1) APTT (20.6-30.2) sec D-Dimer (<500) ng/mlFEU VBG pH (7.31-7.41) 7.39 VBG pCO2 (41-51) mmHg 37 L VBG pO2 mmHg 68 VBG HCO3 (23-28) mmol/L 23 VBG Total CO2 (24-29) mmol/L 19 L VBG O2 Saturation % 94 VBG Base Excess (-2-3) mmol/L -2 VBG Lactate (<or=2.0) mmol/L 2.9 H* Sodium (136-145) mmol/L Potassium (3.5-5.1) mmol/L Chloride (98-107) mmol/L Carbon Dioxide (21.0-32.0) mmol/L Anion Gap (3-11) mmol/L BUN (7-18) mg/dL Creatinine (0.55-1.02) mg/dL Est GFR (CKD-EPI 2020) (mL/min/1.73m2) Glucose (74-106) mg/dL Calcium (8.5-10.1) mg/dL Magnesium (1.8-2.4) mg/dL Total Bilirubin (0.2-1.0) mg/dL AST (15-37) U/L ALT (14-59) U/L Alkaline Phosphatase (46-116) U/L Troponin I (<or=51) ng/L NT-Pro-B Natriuret Pep (<300) pg/mL Total Protein (6.4-8.2) g/dL Albumin (3.4-5.0) g/dL Lipase (<78) U/L Urine Color (Yellow) Urine Clarity (Clear) Urine pH (5-8) Ur Specific [place]air (1.005-1.025) Urine Protein (Neg-Trace) mg/dL Urine Ketones (Negative) mg/dL Urine Blood (Negative) Urine Nitrite (Negative) Urine Bilirubin (Negative) Urine Urobilinogen (Up to 0.2) mg/dL Ur Leukocyte Esterase (Negative) Urine RBC (0-2) HPF Urine WBC (0-5) HPF Ur Epithelial Cells (Negative) HPF Urine Crystals (Negative) HPF Urine Bacteria (Negative) HPF Urine Casts (Negative) LPF Urine Mucus (Negative) Ur Culture Indicated? Urine Glucose (Negative) mg/dL Urine Opiates Screen (Negative) Urine Methadone Screen (Negative) Ur Barbiturates Screen (Negative) Ur Tricyclics Screen (Negative) Ur Amphetamines Screen (Negative) U Benzodiazepines Scrn (Negative) Urine Cocaine Screen (Negative) Ur THC Screen (Negative) COVID-19 Source Nasopharynx SARS-CoV-2 (PCR) (Negative) Negative Influenza Type A (PCR) (Negative) Negative Influenza Type B (PCR) (Negative) Negative RSV (PCR) (Negative) Negative Range/Units 09/30/24 09/30/24 12:00 14:39 WBC (4.4-10.8) 10^3/uL RBC (3.93-5.22) 10^6/uL Hgb (11.2-15.7) g/dL Hct (36.0-46.0) % MCV (80-95) fL MCH (27.0-33.0) pg MCHC (32.0-36.0) % RDW (11.7-14.6) % Plt Count (130-400) 10^3/uL MPV (8.0-11.0) fL Immature Gran % Neutrophils % % Lymphocytes % % Atypical Lymphs % % Monocytes % % Eosinophils % % Basophils % % Nucleated RBC % (0.0-0.3) % Absolute Neutrophils (1.2-6.7) 10^3/uL Absolute Lymphocytes (1.2-3.4) 10^3/uL Absolute Monocytes (0.1-0.8) 10^3/uL Absolute Eosinophils (0.0-0.7) 10^3/uL Absolute Basophils (0.0-0.2) 10^3/uL RBC Morphology PT (9.1-11.1) sec INR (0.9-1.1) APTT (20.6-30.2) sec D-Dimer (<500) ng/mlFEU VBG pH (7.31-7.41) 7.29 L 7.38 VBG pCO2 (41-51) mmHg 61 H 43 VBG pO2 mmHg 25 61 VBG HCO3 (23-28) mmol/L 29 H 26 VBG Total CO2 (24-29) mmol/L 26 21 L VBG O2 Saturation % 39 91 VBG Base Excess (-2-3) mmol/L 3 1 VBG Lactate (<or=2.0) mmol/L Sodium (136-145) mmol/L 141 Potassium (3.5-5.1) mmol/L 4.4 Chloride (98-107) mmol/L 103 Carbon Dioxide (21.0-32.0) mmol/L 30.8 Anion Gap (3-11) mmol/L 7.2 BUN (7-18) mg/dL 12 Creatinine (0.55-1.02) mg/dL 1.0 Est GFR (CKD-EPI 2020) (mL/min/1.73m2) 66.53 Glucose (74-106) mg/dL 264 H Calcium (8.5-10.1) mg/dL 9.4 Magnesium (1.8-2.4) mg/dL Total Bilirubin (0.2-1.0) mg/dL AST (15-37) U/L ALT (14-59) U/L Alkaline Phosphatase (46-116) U/L Troponin I (<or=51) ng/L 274 H* NT-Pro-B Natriuret Pep (<300) pg/mL Total Protein (6.4-8.2) g/dL Albumin (3.4-5.0) g/dL Lipase (<78) U/L Urine Color (Yellow) Urine Clarity (Clear) Urine pH (5-8) Ur Specific [place] (1.005-1.025) Urine Protein (Neg-Trace) mg/dL Urine Ketones (Negative) mg/dL Urine Blood (Negative) Urine Nitrite (Negative) Urine Bilirubin (Negative) Urine Urobilinogen (Up to 0.2) mg/dL Ur Leukocyte Esterase (Negative) Urine RBC (0-2) HPF Urine WBC (0-5) HPF Ur Epithelial Cells (Negative) HPF Urine Crystals (Negative) HPF Urine Bacteria (Negative) HPF Urine Casts (Negative) LPF Urine Mucus (Negative) Ur Culture Indicated? Urine Glucose (Negative) mg/dL Urine Opiates Screen (Negative) Urine Methadone Screen (Negative) Ur Barbiturates Screen (Negative) Ur Tricyclics Screen (Negative) Ur Amphetamines Screen (Negative) U Benzodiazepines Scrn (Negative) Urine Cocaine Screen (Negative) Ur THC Screen (Negative) COVID-19 Source SARS-CoV-2 (PCR) (Negative) Influenza Type A (PCR) (Negative) Influenza Type B (PCR) (Negative) RSV (PCR) (Negative) Quality:SDOH Health Related Social Needs: No Data to Display Critical Care Time Critical Care Time Critical Care Time: Yes Total Critical Care Time: 65 Attestation: I spent greater than 35 minutes addressing this patient's acute life threatening illness. This time was spent engaged in actions directly related to the patient's care. Failure to initiate these interventions would have likely resulted in clinically significant or life threatening deterioration in the patients condition. PFSH All Active Problems (Updated 09/30/24 @ 13:07 by Jenna Jean NP) Non-ST elevation IN (NSTEMI) (Acute) Pulmonary edema (Acute) Acute respiratory failure with hypoxia and hypercarbia (Acute) Non-ST elevation IN (NSTEMI) (Acute) Phenytoin toxicity (Acute) Trigeminal neuralgia pain (Acute) Colon cancer screening (Acute) Medical History Urinary tract infection Hypertension Anxiety disorder Urge incontinence Heart murmur, systolic Viral meningitis Liver disease Hyperlipidemia Alcohol abuse, in remission in remission for 13 years Cocaine abuse in remission in remission for 13 years History of hepatitis Hep C. pt. states she has been treated in 2004, states she did the Interferon treatment. Family history of chronic ischemic heart disease Family history of diabetes mellitus Tobacco use disorder Benign essential hypertension Onychomycosis Surgical History H/O tubal ligation Normal colonoscopy (~12/2019) Hx of section x2 Hx of cholecystectomy History of appendectomy Family History Mother Diabetes Emphysema lung Coronary artery disease Hypertension Hyperlipidemia Father Heart disease Coronary artery disease Hypertension Hyperlipidemia Sister Heart disease Coronary artery disease Diabetes Stroke Hypertension Hyperlipidemia Social History Smoking/Tobacco Use Status: Current every day Tobacco Type: cigarettes Quit status: quit date established Smoking risk assessment performed?: Yes Alcohol Intake: current Drug use: Occasionally Substance use type: marijuana Details: 13 years clean crack/cocaine Household members: none Housing: house Number of Children: 0 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
[2024-09-30 09:19] LABS: BE (Venous) -6 mmol/L (-2-3); HCO3 (Venous) 23 mmol/L (23-28); O2 Sat (Venous) 36 %; TCO2 (Venous) 22 mmol/L (24-29); pO2 (Venous) 29 mmHg
[2024-09-30] MEDS: nitroGLYcerin in D5W 50 MG/250 ML BTL 24 MG IV (09:20)
[2024-09-30 09:21] LABS: MCH 30.2 pg (27.0-33.0); MCHC 32.6 % (32.0-36.0); MCV 93 fL (80-95); MPV 10.4 fL (8.0-11.0); RDW 13.5 % (11.7-14.6); pCO2 (Venous) 77 mmHg (41-51); pH (Venous) 7.09 (7.31-7.41)
[2024-09-30 09:23] LABS: Absolute Eosinophil Count 0.29 10^3/uL (0.0-0.7)
--- NOTE | 2024-09-30 09:25 | W.EDPROG ---
Date of service: 09/30/24 Time of Service: 09:25 Medical Decision Making This is a 54-year-old female with prior history of NSTEMI arrived to the emergency department with symptomatic crashing acute pulmonary edema concern on ultrasound for which patient received emergent rescue BiPAP nitroglycerin drip initiated at 80 mcg/min. 4:50 PM Patient was initially going to be transferred to [facility]. Subsequently she was off the BiPAP and cardiology at [facility] [place] was consulted. She was ultimately accepted at [facility] [place]. She unfortunately required repeat BiPAP and her blood pressure increased again for which she was reinitiated on nitroglycerin drip. She put out more than 1 L of urine following 80 mg IV furosemide. Quality:[facility] Health Related Social Needs: No Data to Display Critical Care Time Critical Care Time Critical Care Time: Yes Total Critical Care Time: 60 Attestation: Acute respiratory failure hypoxia hypercarbia Discharge Plan Disposition Patient Disposition: Transfer-Acute Inpatient Care Specific Acute Inpt Facility: [facility] Condition: Serious Discharge Details Clinical Impression: Acute respiratory failure with hypoxia and hypercarbia, Pulmonary edema, Non-ST elevation [place] (NSTEMI) Primary Care Provider: Raffi Nolasco ED Provider: Emmnauelle Boykin Home Meds and New Rx's Prescriptions: No Action nicotine 14 mg/24 hr patch 24 hour 1 patch TD DAILY PRN simvastatin 20 mg tablet 20 mg PO HS albuterol sulfate [ProAir HFA] 90 mcg/actuation HFA aerosol inhaler 2 puff IH Q6H PRN oxybutynin chloride 5 mg tablet 5 mg PO HS sertraline 100 mg tablet 100 mg PO DAILY clonazepam 0.5 mg tablet 0.5 mg PO DAILY PRN atorvastatin 40 mg tablet 40 mg PO DAILY Patient Comments: TAKE ONE TABLET BY MOUTH EVERY EVENING carvedilol 25 mg tablet 25 mg PO BID Patient Comments: TAKE ONE TABLET BY MOUTH TWICE A DAY isosorbide mononitrate 30 mg tablet extended release 24 hr 30 mg PO DAILY Patient Comments: TAKE ONE TABLET BY MOUTH EVERY DAY lidocaine 5 % adhesive patch,medicated 1 patch topical DAILY Patient Comments: APPLY ONE PATCH TOPICALLY EVERY DAY LEAVE ON 12 HOURS AND REMOVE FOR 12 HOURS losartan 25 mg tablet 25 mg PO DAILY Patient Comments: TAKE ONE TABLET BY MOUTH EVERY DAY nicotine 21 mg/24 hr patch 24 hour 1 patch topical DAILY Patient Comments: APPLY ONE PATCH TO THE SKIN EVERY DAY buspirone 7.5 mg tablet 7.5 mg PO BID Patient Comments: TAKE ONE TABLET BY MOUTH TWICE A DAY oxcarbazepine 600 mg tablet 600 mg PO BID Patient Comments: TAKE ONE TABLET BY MOUTH TWICE A DAY furosemide 20 mg tablet 20 mg PO QAM Patient Comments: TAKE ONE TABLET BY MOUTH EVERY MORNING Spiriva Respimat 2.5 mcg/actuation mist 2 puff INHALATION ONCE Patient Comments: INHALE TWO PUFFS BY MOUTH EVERY DAY ondansetron 4 mg tablet,disintegrating 4 mg PO Q8H PRN (Reason: nausea and vomiting) Qty: 30 0RF ondansetron 4 mg tablet,disintegrating 4 mg PO Q8H PRN (Reason: nausea and vomiting) Qty: 30 0RF gabapentin 300 mg capsule 900 mg PO TID Patient Comments: TAKE 3 CAPSULES BY MOUTH THREE TIMES DAILY POCUS Exam (ED) Limited Cardiac Exam DATE OF EXAM: 09/30/24 TIME OF EXAM: 09:27 PROVIDER THAT PERFORMED THE STUDY: Javier Ma IS THIS A REPEAT EXAM DURING THIS ENCOUNTER: no REASON FOR EXAM: Chest pain and Other indication: Lungs bilaterally VISUALIZED STRUCTURES: Four Chambers, Left ventricle and LVOT VIEW OBTAINED: Apical 4-Chamber, Parasternal long-axis and Subxiphoid PERTINENT FINDINGS/IMPRESSION: No pericardial effusion and No RV dilation DIFFERENTIAL DIAGNOSES: Aortic outflow track less than 4 cm, moderate squeeze, RV less than LV, no significant pericardial effusion. Bilateral B-lines. Exam complete
[2024-09-30 09:28] LABS: WBC 28.52 10^3/uL (4.4-10.8)
[2024-09-30 09:29] LABS: HCT 59.5 % (36.0-46.0); HGB 19.4 g/dL (11.2-15.7)
--- NOTE | 2024-09-30 09:41 | DI.VRAD_ITS ---
PROCEDURE INFORMATION: Exam: XR Chest Exam date and time: 09/30/2024 9:38 AM Age: 54 years old Clinical indication: Other: Resp distress TECHNIQUE: Imaging protocol: Radiologic exam of the chest. Views: 1 view. COMPARISON: CR XR CHEST 2V PA LATERAL 07/02/2024 6:09 AM FINDINGS: Lungs: Diffuse bilateral interstitial opacities. Mild pulmonary vascular congestion. Pleural spaces: No large pleural effusion seen. Heart/Mediastinum: No cardiomegaly. Bones/joints: No acute abnormality. IMPRESSION: Diffuse bilateral interstitial opacities suggestive of edema. Infection is a differential consideration. Follow-up as clinically warranted. Dictated and Authenticated by: Verenice Williamson MD. Orderin Miranda West MD
[2024-09-30 09:43] LABS: INR 1.1 (0.9-1.1); PTT Activated 27.2 sec (20.6-30.2)
--- NOTE | 2024-09-30 09:45 | RT.EKG_ITS ---
APPROVED REPORT Exam: Resting ECG Reason for Exam: Repeat, SOB Patient Location: E HR:90 bpm ECG Measurements Heart Rate 90 AXIS MA 189 P 70 QRSd 124 QRS -55 QT 425 T 109 QTc 520 Conclusion Sinus rhythm...normal P axis, V-rate 60- 99 Left atrial enlargement...P, P'>60mS, <-0.15mV V1 LVH with secondary repolarization abnormality...multi-LVH criteria, abnrm ST-T No Occlusion AL
[2024-09-30 09:48] LABS: ALT 24 U/L (14-59); AST 15 U/L (15-37); Albumin 4.4 g/dL (3.4-5.0); Alkaline Phosphatase 142 U/L (46-116); Anion Gap 13.6 mmol/L (3-11); BUN 12 mg/dL (7-18); Bilirubin, Total 0.9 mg/dL (0.2-1.0); CO2 25.4 mmol/L (21.0-32.0); CREATININE 1.1 mg/dL (0.55-1.02); Calcium 10.2 mg/dL (8.5-10.1); Chloride 102 mmol/L (98-107); Estimated GFR 59.34 (mL/min/1.73m2); Glucose 304 mg/dL (74-106); Lipase 34 U/L (<78); Magnesium 2.3 mg/dL (1.8-2.4); NT-proBNP 494 pg/mL (<300); Potassium 4.4 mmol/L (3.5-5.1); Sodium 141 mmol/L (136-145); Total Protein 8.7 g/dL (6.4-8.2)
[2024-09-30] MEDS: Furosemide 40 MG/4 ML VIAL IVP ×2 (09:53→10:32)
[2024-09-30 09:55] LABS: Troponin I 70 ng/L (<or=51)
[2024-09-30 09:56] LABS: Absolute Basophil Count 0.29 10^3/uL (0.0-0.2); Absolute Lymphocyte Count 7.13 10^3/uL (1.2-3.4); Absolute Monocyte Count 1.14 10^3/uL (0.1-0.8); Absolute Neutrophil Count 19.68 10^3/uL (1.2-6.7); Atypical Lymphocytes % 5 %; Diff Comment Manual Differential; RBC Morphology Normal
[2024-09-30 09:57] LABS: Platelet Count 396 10^3/uL (130-400); RBC 6.43 10^6/uL (3.93-5.22)
[2024-09-30 10:04] LABS: Bilirubin Negative (Negative); Blood Trace-intact (Negative); Clarity Sl Cloudy (Clear); Glucose >=1000 mg/dL (Negative); Ketones Negative (Negative); Leukocyte Esterase Negative (Negative); Nitrite Negative (Negative)
[2024-09-30 10:12] LABS: Bacteria Moderate HPF (Negative); C & S Indicated? No; Casts Negative LPF (Negative); Crystals Negative HPF (Negative); Epithelial Cells Moderate HPF (Negative); Mucus Trace (Negative); RBC 0-2 HPF (0-2); WBC 0-2 HPF (0-5)
[2024-09-30 10:14] LABS: BE (Venous) -2 mmol/L (-2-3); HCO3 (Venous) 25 mmol/L (23-28); O2 Sat (Venous) 74 %; TCO2 (Venous) 22 mmol/L (24-29); pCO2 (Venous) 54 mmHg (41-51); pH (Venous) 7.27 (7.31-7.41); pO2 (Venous) 44 mmHg
[2024-09-30 10:19] LABS: *AMPHETAMINES SCREEN URINE Negative (Negative); *BARBITURATES SCREEN URINE Negative (Negative); *BENZODIAZEPINES SCREEN URINE Negative (Negative); Cannabinoids THC Positive (Negative); Cocaine Screen,Urine Negative (Negative); METHADONE URINE SCREEN Negative (Negative); OPIATES URINE SCREEN Negative (Negative)
[2024-09-30 10:23] LABS: Tricyclic Antidepressants Negative (Negative)
[2024-09-30] MEDS: Aspirin 81 MG CHEW 324 MG CH (10:31)
[2024-09-30 10:39] LABS: D-Dimer 800 ng/mlFEU (<500)
[2024-09-30 10:40] LABS: Troponin I 164 ng/L (<or=51)
[2024-09-30 10:44] LABS: Lactate 2.9 mmol/L (<or=2.0)
[2024-09-30 11:18] LABS: BE (Venous) -2 mmol/L (-2-3); HCO3 (Venous) 23 mmol/L (23-28); O2 Sat (Venous) 94 %; TCO2 (Venous) 19 mmol/L (24-29); pCO2 (Venous) 37 mmHg (41-51); pH (Venous) 7.39 (7.31-7.41); pO2 (Venous) 68 mmHg
--- NOTE | 2024-09-30 11:45 | RT.EKG_ITS ---
APPROVED REPORT Exam: Resting ECG Reason for Exam: Repeat Patient Location: E HR:84 bpm ECG Measurements Heart Rate 84 AXIS RI 184 P 74 QRSd 122 QRS -54 QT 452 T 110 QTc 534 Conclusion Sinus rhythm...normal P axis, V-rate 60- 99 Atrial premature complexes...SV complexes w/ short R-R intvls Left atrial enlargement...P, P'>60mS, <-0.15mV V1 LVH with secondary repolarization abnormality...multi-LVH criteria, abnrm ST-T No Occlusion AR
[2024-09-30 12:12] LABS: COVID-19 PCR Negative (Negative); Influenza A PCR Negative (Negative); Influenza B PCR Negative (Negative); RSV PCR Negative (Negative)
[2024-09-30 12:12] LABS: BE (Venous) 3 mmol/L (-2-3); HCO3 (Venous) 29 mmol/L (23-28); O2 Sat (Venous) 39 %; TCO2 (Venous) 26 mmol/L (24-29); pH (Venous) 7.29 (7.31-7.41); pO2 (Venous) 25 mmHg
[2024-09-30 12:15] LABS: Source Nasopharynx
[2024-09-30 12:15] LABS: pCO2 (Venous) 61 mmHg (41-51)
[2024-09-30 12:31] LABS: Anion Gap 7.2 mmol/L (3-11); BUN 12 mg/dL (7-18); CO2 30.8 mmol/L (21.0-32.0); Calcium 9.4 mg/dL (8.5-10.1); Chloride 103 mmol/L (98-107); Estimated GFR 66.53 (mL/min/1.73m2); Glucose 264 mg/dL (74-106); Potassium 4.4 mmol/L (3.5-5.1); Sodium 141 mmol/L (136-145)
[2024-09-30 12:53] LABS: Troponin I 274 ng/L (<or=51)
[2024-09-30] MEDS: Clopidogrel 300 MG TAB 600 MG PO (13:23)
[2024-09-30] MEDS: Atorvastatin 40 MG TAB PO (13:23)
[2024-09-30] MEDS: Heparin in 0.45% NaCl 25,000 UNIT/250 ML BAG 8 UNIT IVINF (13:28)
[2024-09-30 14:41] LABS: BE (Venous) 1 mmol/L (-2-3); HCO3 (Venous) 26 mmol/L (23-28); O2 Sat (Venous) 91 %; TCO2 (Venous) 21 mmol/L (24-29); pCO2 (Venous) 43 mmHg (41-51); pH (Venous) 7.38 (7.31-7.41); pO2 (Venous) 61 mmHg
[2024-09-30] MEDS: hydrALAZINE 20 MG/ML VIAL IVP (16:50)
--- NOTE | 2024-09-30 17:33 | W.EDPROG ---
Date of service: 09/30/24 Time of Service: 17:33 Medical Decision Making This patient was accepted in transition from Emilia Jean nurse practitioner pending bed placement and transfer to [facility]. Patient reportedly with pulmonary edema with NSTEMI likely category 2. Heparin was initiated and initially patient had been on nitro drip however this had been removed. BiPAP was then placed. Patient's blood pressure on my acceptance of patient was 240/140, this was confirmed and then heparin drip was reinitiated. There was minimal improvement in blood pressure so 20 mg of hydralazine was initiated and blood pressure now is 160 over 150 minutes post hydralazine I will hold on additional medications at this moment. She will continue on the nitro. She has had approximately 1500 cc of urinary output patient is alert and answering questions appropriately she will stay on the BiPAP. She is pending metal cutter transfer to [facility] at this time. Pressures improved Quality:SDOH Health Related Social Needs: No Data to Display Discharge Plan Disposition Patient Disposition: Transfer-Acute Inpatient Care Specific Acute Inpt Facility: [facility] Condition: Serious Discharge Details Clinical Impression: Acute respiratory failure with hypoxia and hypercarbia, Pulmonary edema, Non-ST elevation [place] (NSTEMI) Primary Care Provider: Raffi Nolasco ED Provider: Emmanuelle Boykin Home Meds and New Rx's Prescriptions: No Action nicotine 14 mg/24 hr patch 24 hour 1 patch TD DAILY PRN simvastatin 20 mg tablet 20 mg PO HS albuterol sulfate [ProAir HFA] 90 mcg/actuation HFA aerosol inhaler 2 puff IH Q6H PRN oxybutynin chloride 5 mg tablet 5 mg PO HS sertraline 100 mg tablet 100 mg PO DAILY clonazepam 0.5 mg tablet 0.5 mg PO DAILY PRN atorvastatin 40 mg tablet 40 mg PO DAILY Patient Comments: TAKE ONE TABLET BY MOUTH EVERY EVENING carvedilol 25 mg tablet 25 mg PO BID Patient Comments: TAKE ONE TABLET BY MOUTH TWICE A DAY isosorbide mononitrate 30 mg tablet extended release 24 hr 30 mg PO DAILY Patient Comments: TAKE ONE TABLET BY MOUTH EVERY DAY lidocaine 5 % adhesive patch,medicated 1 patch topical DAILY Patient Comments: APPLY ONE PATCH TOPICALLY EVERY DAY LEAVE ON 12 HOURS AND REMOVE FOR 12 HOURS losartan 25 mg tablet 25 mg PO DAILY Patient Comments: TAKE ONE TABLET BY MOUTH EVERY DAY nicotine 21 mg/24 hr patch 24 hour 1 patch topical DAILY Patient Comments: APPLY ONE PATCH TO THE SKIN EVERY DAY buspirone 7.5 mg tablet 7.5 mg PO BID Patient Comments: TAKE ONE TABLET BY MOUTH TWICE A DAY oxcarbazepine 600 mg tablet 600 mg PO BID Patient Comments: TAKE ONE TABLET BY MOUTH TWICE A DAY furosemide 20 mg tablet 20 mg PO QAM Patient Comments: TAKE ONE TABLET BY MOUTH EVERY MORNING Spiriva Respimat 2.5 mcg/actuation mist 2 puff INHALATION ONCE Patient Comments: INHALE TWO PUFFS BY MOUTH EVERY DAY ondansetron 4 mg tablet,disintegrating 4 mg PO Q8H PRN (Reason: nausea and vomiting) Qty: 30 0RF ondansetron 4 mg tablet,disintegrating 4 mg PO Q8H PRN (Reason: nausea and vomiting) Qty: 30 0RF gabapentin 300 mg capsule 900 mg PO TID Patient Comments: TAKE 3 CAPSULES BY MOUTH THREE TIMES DAILY
[2024-09-30] MEDS: DOXYCYCLINE 100 MG in Normal Saline 100 ML IVPB (18:46)
[2024-09-30] MEDS: ERTAPENEM 1 GM in Normal Saline 50 ML IVPB (18:47)
== END 2024-09-30 18:44 | disposition short-term general hospital (02) ==
PROVIDERS: Registered Nurse Emergency; Emergency Provider Physician Assistant; PCP Physician Assistant
DX: J96.02 Acute respiratory failure with hypercapnia (principal); J96.01 Acute respiratory failure with hypoxia; J81.1 Chronic pulmonary edema; I21.4 Non-ST elevation (NSTEMI) myocardial infarction; I10 Essential (primary) hypertension; E78.5 Hyperlipidemia, unspecified; I25.10 Atherosclerotic heart disease of native coronary artery without angina pectoris; I25.2 Old myocardial infarction; Z79.899 Other long term (current) drug therapy
CPT/HCPCS: 00123; 36415; 80048; 80053; 80307; 82805; 83690; 87040; 87637; 93005; 93308; 96365; 96366; 96375; 96376; 99291; 71045; 81003; 81015; 83605; 83735; 83880; 84484; 85025; 85379; 85610; 85730; 93010; J0360; J1335; J1644; J1938; J2305

== ENCOUNTER 2024-10-27 08:22 | Outpatient (RCR) | payer BC, MEDICAID, SELFPAY | END 2024-10-28 23:59 | disposition home or self-care (01) | LOC: CR 08:22 | PROVIDERS: PCP Physician Assistant; Visit Provider Internal Medicine Cardiovascular Disease | DX: I25.10 Atherosclerotic heart disease of native coronary artery without angina pectoris (principal); I21.4 Non-ST elevation (NSTEMI) myocardial infarction; Z51.89 Encounter for other specified aftercare | CPT/HCPCS: S9472 ==

== ENCOUNTER 2024-10-30 09:38 | Emergency (ER) | payer BC, MEDICAID, SELFPAY ==
[2024-10-30 10:04] VITALS: BP 115/78; PULSE 56; RESP 18; TEMP 36.6; O2SAT 98
[2024-10-30 10:05] VITALS: BP 115/78; PULSE 56; RESP 18; TEMP 36.6; O2SAT 98
--- NOTE | 2024-10-30 10:26 | ED.GENADUL_ITS ---
Discharge Plan Disposition Patient Disposition: Home Condition: Stable Discharge Details Clinical Impression: Hypotension Primary Care Provider: Raffi Nolasco ED Provider: Amirah Higuera Home Meds and New Rx's Prescriptions: No Action nicotine 14 mg/24 hr patch 24 hour 1 patch TD DAILY PRN albuterol sulfate [ProAir HFA] 90 mcg/actuation HFA aerosol inhaler 2 puff IH Q6H PRN clonazepam 0.5 mg tablet 0.5 mg PO DAILY PRN atorvastatin 40 mg tablet 80 mg PO DAILY Patient Comments: TAKE ONE TABLET BY MOUTH EVERY EVENING carvedilol 25 mg tablet 25 mg PO BID Patient Comments: TAKE ONE TABLET BY MOUTH TWICE A DAY isosorbide mononitrate 30 mg tablet extended release 24 hr 30 mg PO DAILY Patient Comments: TAKE ONE TABLET BY MOUTH EVERY DAY lidocaine 5 % adhesive patch,medicated 1 patch topical DAILY Patient Comments: APPLY ONE PATCH TOPICALLY EVERY DAY LEAVE ON 12 HOURS AND REMOVE FOR 12 HOURS losartan 25 mg tablet 25 mg PO DAILY Patient Comments: TAKE ONE TABLET BY MOUTH EVERY DAY nicotine 21 mg/24 hr patch 24 hour 1 patch topical DAILY Patient Comments: APPLY ONE PATCH TO THE SKIN EVERY DAY buspirone 7.5 mg tablet 7.5 mg PO BID Patient Comments: TAKE ONE TABLET BY MOUTH TWICE A DAY oxcarbazepine 600 mg tablet 600 mg PO BID Patient Comments: TAKE ONE TABLET BY MOUTH TWICE A DAY furosemide 20 mg tablet 20 mg PO QAM Patient Comments: TAKE ONE TABLET BY MOUTH EVERY MORNING Spiriva Respimat 2.5 mcg/actuation mist 2 puff INHALATION ONCE Patient Comments: INHALE TWO PUFFS BY MOUTH EVERY DAY gabapentin 300 mg capsule 900 mg PO TID Patient Comments: TAKE 3 CAPSULES BY MOUTH THREE TIMES DAILY amlodipine 10 mg tablet 5 mg PO DAILY spironolactone 25 mg tablet 25 mg PO DAILY Patient Comments: TAKE ONE TABLET BY MOUTH EVERY DAY losartan 100 mg tablet 100 mg PO DAILY Patient Comments: TAKE ONE TABLET BY MOUTH EVERY EVENING Jardiance 10 mg tablet 10 mg PO DAILY Patient Comments: TAKE ONE TABLET BY MOUTH EVERY DAY Discharge Instructions Instructions: Dealing with Low Blood Pressure from the Drugs You Take Additional Instructions: You were seen in the emergency department today for evaluation of a low blood pressure reading found in a clinic. At the time that you arrived at our facility, you had a normal blood pressure, and were not experiencing any symptoms such as dizziness, chest pain, or nausea. We did discuss the possibilities for why this happened, and I do feel that it is reasonable to make some small medication changes today, which will be followed up on by your air pollution inspector or your primary care provider. Today, I would like you to stop the amlodipine. Additionally, I want you to check your heart rate and your blood pressure at nighttime before you take your medications. If your heart rate is less than 60, or your blood pressure is less than 100 systolic (the top number) you should hold your carvedilol because that could worsen those numbers and cause you symptoms. We discussed conducting laboratory studies today, and at this time it is reasonable for us to defer since you are feeling asymptomatic. However, if your symptoms persist or you develop new symptoms you need to return to the emergency department immediately for laboratory studies and further evaluation. You need to call your primary care provider and your air pollution inspector to discuss the changes that we made today, as they will be managing her medications in the long-term. Thank you for allowing us to be part of your care. HPI General Mode of arrival: ambulatory . Date/Time Provider Initiated Documentation: 10/30/24 09:40 . Limitations to Documentation: no limitations . Information obtained by: patient and old records reviewed . HPI Narrative: This is a 54-year-old female patient with a past medical history significant for recent admission to [facility] [place] for heart failure and NSTEMI, with hypertensive emergency, presenting for evaluation of low blood pressure. The patient reports that she has largely been in her normal state of health, but has noted that her blood pressure, which was previously quite high, has been running more normal to even low on her checks at home. She states that she has sometimes felt apprehensive about taking her medications, as she knows that it will make her blood pressure lower. She reports over the last weekend she has had some mild carsickness with long car drives, has not had any vertigo, loss of consciousness, chest pain, or shortness of breath. The patient was seen at cardiac rehab this morning, had her blood pressure taken and it was noted to be 80/60. She did call [facility] [place], who counseled her to come to the emergency department for an evaluation. When she arrived to the emergency department, her blood pressure was rechecked and found to be normal. The patient states that she was asymptomatic at cardiac rehab and remained so here. She has taken her morning medications as prescribed. She denies headache, chest pain, shortness of breath, or lightheadedness. She is eating and drinking typically and making urine as expected Related Data Home Medications ?Medication ?Instructions ?Recorded ?Confirmed albuterol sulfate 90 mcg/actuation 2 puff inhalation Q6H PRN 06/27/19 10/30/24 aerosol inhaler (ProAir HFA) nicotine 14 mg/24 hr daily 1 patch transdermal DAILY PRN 08/03/19 10/30/24 transdermal patch clonazepam 0.5 mg tablet 0.5 mg PO DAILY PRN 04/15/22 10/30/24 gabapentin 300 mg capsule 900 mg PO TID 11/01/23 10/30/24 atorvastatin 40 mg tablet 80 mg PO DAILY 07/02/24 10/30/24 buspirone 7.5 mg tablet 7.5 mg PO BID 07/02/24 10/30/24 carvedilol 25 mg tablet 25 mg PO BID 07/02/24 10/30/24 furosemide 20 mg tablet 20 mg PO QAM 07/02/24 10/30/24 isosorbide mononitrate 30 mg 30 mg PO DAILY 07/02/24 10/30/24 tablet,extended release 24 hr lidocaine 5 % topical patch 1 patch topical DAILY 07/02/24 10/30/24 losartan 25 mg tablet 25 mg PO DAILY 07/02/24 10/30/24 nicotine 21 mg/24 hr daily 1 patch topical DAILY 07/02/24 10/30/24 transdermal patch oxcarbazepine 600 mg tablet 600 mg PO BID 07/02/24 10/30/24 tiotropium bromide 2.5 2 puff inhalation ONCE 07/02/24 10/30/24 mcg/actuation mist for inhalation (Spiriva Respimat) amlodipine 10 mg tablet 5 mg PO DAILY 10/30/24 10/30/24 empagliflozin 10 mg tablet 10 mg PO DAILY 10/30/24 10/30/24 (Jardiance) losartan 100 mg tablet 100 mg PO DAILY 10/30/24 10/30/24 spironolactone 25 mg tablet 25 mg PO DAILY 10/30/24 10/30/24 Allergies Allergy/AdvReac Type Severity Reaction Status Date / Time cefazolin sodium (From [facility]) Allergy Severe Anaphylaxsi Verified 07/10/24 14:48 s codeine Allergy Unknown unknown Verified 07/10/24 14:48 hay fever Allergy Mild Other (See Uncoded 07/10/24 14:48 Comment) General Stated Complaint: GenMedical LISA: 4 Exam Narrative Exam Narrative: Gen: Awake and alert, in no apparent distress HEENT: Non-icteric sclera Neck: Supple Lungs: No apparent respiratory distress, normal respiratory effort. CV: Appears well perfused, heart with slightly bradycardic rate but regular rhythm, strong distal pulses Abdomen: Non-distended MSK: Moves 4 extremities without apparent limitation in ROM. No peripheral edema Skin: Visualized skin without rashes, cyanosis. Neuro: Normal Gait, no obvious focal deficits or facial asymmetry. Speaks in full, clear sentences. Psych: Appropriate for situation. Course Vital Signs Vital signs: Vital Signs Temperature 36.6 C 10/30/24 10:04 Pulse 56 L 10/30/24 10:04 Respiratory Rate 18 10/30/24 10:04 Blood Pressure 115/78 10/30/24 10:04 Pulse Oximetry 98 10/30/24 10:04 Temperature 36.6 C 10/30/24 10:05 Pulse 56 L 10/30/24 10:05 Respiratory Rate 18 10/30/24 10:05 Blood Pressure 115/78 10/30/24 10:05 Pulse Oximetry 98 10/30/24 10:05 Pain Level 0 10/30/24 10:05 Medical Decision Making This is a 54-year-old female patient presenting for evaluation of low blood pressure. My differential includes but is not limited to hypotension due to medications, certainly considered erroneous reading, orthostasis, vasovagal syndrome, though the patient is reassuringly without symptoms suggestive of same. I considered overdiuresis and dehydration, metabolic and electrolyte derangements, anemia. The patient has no chest pain to suggest ACS, no shortness of breath or evidence of fluid overload to suggest pulmonary edema, and is at this time entirely asymptomatic. I had an extended shared decision-making conversation with the patient, who is desiring to avoid excessive workup and laboratory studies, which at this time I do feel is reasonable. However, I suspect that the patient's multimodal blood pressure management regimen may be too robust for her current baseline blood pressure. I recommended that she hold her amlodipine as our initial change, and monitor her blood pressure at home. I also discussed criteria in which she should hold her carvedilol, to include bradycardia with heart rates as of 60, and systolic blood pressures less than 100. She needs to follow-up with her air pollution inspector or primary care provider in the next few days to discuss the results of these changes and any ongoing blood pressure medication management that needs to occur. We also had an extended conversation regarding return precautions, to include lightheadedness, hypotension that persists, chest pain, headache, shortness of breath. At this time, the patient has had a full medical evaluation and is safe for discharge to home. They are hemodynamically stable, ambulatory, and tolerating PO. They are understanding of the follow-up plan and return precautions. They left our facility without incident. Amirah Higuera MD Quality:SDOH Health Related Social Needs: No Data to Display PFSH All Active Problems (Updated 10/30/24 @ 10:29 by Amirah Higuera MD) Hypotension (Acute) Non-ST elevation [place] (NSTEMI) (Acute) Pulmonary edema (Acute) Acute respiratory failure with hypoxia and hypercarbia (Acute) Non-ST elevation [place] (NSTEMI) (Acute) Phenytoin toxicity (Acute) Trigeminal neuralgia pain (Acute) Colon cancer screening (Acute) Medical History Urinary tract infection Hypertension Anxiety disorder Urge incontinence Heart murmur, systolic Viral meningitis Liver disease Hyperlipidemia Alcohol abuse, in remission in remission for 13 years Cocaine abuse in remission in remission for 13 years History of hepatitis Hep C. pt. states she has been treated in 2004, states she did the Interferon treatment. Family history of chronic ischemic heart disease Family history of diabetes mellitus Tobacco use disorder Benign essential hypertension Onychomycosis Surgical History H/O tubal ligation Normal colonoscopy (~12/2019) Hx of section x2 Hx of cholecystectomy History of appendectomy Family History Mother Diabetes Emphysema lung Coronary artery disease Hypertension Hyperlipidemia Father Heart disease Coronary artery disease Hypertension Hyperlipidemia Sister Heart disease Coronary artery disease Diabetes Stroke Hypertension Hyperlipidemia Social History Smoking/Tobacco Use Status: Current every day Tobacco Type: cigarettes Quit status: quit date established Smoking risk assessment performed?: Yes Alcohol Intake: current Drug use: Occasionally Substance use type: marijuana Details: 13 years clean crack/cocaine Household members: none Housing: house Number of Children: 0 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
[2024-10-30 10:36] VITALS: BP 132/80; PULSE 62; RESP 21; O2SAT 98
== END 2024-10-30 10:39 | disposition home or self-care (01) ==
PROVIDERS: Emergency Provider Emergency Medicine; PCP Physician Assistant
DX: I95.0 Idiopathic hypotension (principal); I50.9 Heart failure, unspecified
CPT/HCPCS: 99283 ×2

== ENCOUNTER 2024-10-30 12:45 | Emergency (ER) | payer BC, MEDICAID, SELFPAY ==
[2024-10-30] VITALS (51 sets, daily range): BP systolic 163–219; BP diastolic 99–151; PULSE 59–85; RESP 7–35; TEMP 36.4; O2SAT 93–99
--- NOTE | 2024-10-30 12:45 | RT.EKG_ITS ---
APPROVED REPORT Exam: Resting ECG Reason for Exam: HTN; hx CHF; epigastric pain Patient Location: E HR:68 bpm ECG Measurements Heart Rate 68 AXIS CA 188 P 60 QRSd 85 QRS 4 QT 407 T 116 QTc 434 Conclusion Sinus rhythm, rate 68 No interval abnormalities No STEMI T wave inversion I, aVL unchanged from prior
[2024-10-30 13:28] LABS: Abs Immature Grans 0.02 10^3/uL (0.0-0.06); Absolute Basophil Count 0.05 10^3/uL (0.0-0.2); Absolute Eosinophil Count 0.15 10^3/uL (0.0-0.7); Absolute Lymphocyte Count 1.94 10^3/uL (1.2-3.4); Absolute Monocyte Count 0.35 10^3/uL (0.1-0.8); Absolute Neutrophil Count 5.54 10^3/uL (1.2-6.7); Basophils % 0.6 %; Eosinophils % 1.9 %; HGB 15.1 g/dL (11.2-15.7); Immature Grans % 0.2 %; Lymphocytes % 24.1 %; MCH 30.4 pg (27.0-33.0); MCHC 35.1 % (32.0-36.0); MCV 87 fL (80-95); MPV 9.6 fL (8.0-11.0); Monocytes % 4.3 %; Neutrophils % 68.9 %; Platelet Count 232 10^3/uL (130-400); RBC 4.97 10^6/uL (3.93-5.22); RDW 12.8 % (11.7-14.6); RDW-SD 40.1 fL; WBC 8.05 10^3/uL (4.4-10.8)
[2024-10-30] MEDS: Famotidine 20 MG/2 ML VIAL IVP (13:31)
[2024-10-30] MEDS: Prochlorperazine 10 MG/2 ML VIAL 5 MG IVP ×2 (13:31→14:30)
[2024-10-30] MEDS: Normal Saline 500 ML IV (13:32)
[2024-10-30 14:03] LABS: ALT 20 U/L (14-59); AST 15 U/L (15-37); Albumin 4.1 g/dL (3.4-5.0); Alkaline Phosphatase 104 U/L (46-116); Anion Gap 15.2 mmol/L (3-11); BUN 9 mg/dL (7-18); Bilirubin, Total 0.7 mg/dL (0.2-1.0); CO2 23.8 mmol/L (21.0-32.0); CREATININE 0.9 mg/dL (0.55-1.02); Calcium 9.9 mg/dL (8.5-10.1); Chloride 99 mmol/L (98-107); Glucose 138 mg/dL (74-106); Lipase 33 U/L (<78); Potassium 3.7 mmol/L (3.5-5.1); Sodium 138 mmol/L (136-145); Total Protein 7.9 g/dL (6.4-8.2); Troponin I 6 ng/L (<or=51)
[2024-10-30] MEDS: Dexamethasone 4 MG/ML VIAL 10 MG IVP (14:57)
[2024-10-30] MEDS: Ondansetron 4 MG/2 ML VIAL IVP (14:58)
[2024-10-30 15:18] LABS: Troponin I 12 ng/L (<or=51)
--- NOTE | 2024-10-30 15:59 | W.ED.GENAD ---
Discharge Plan Disposition Patient Disposition: Home Discharge Details Clinical Impression: Nausea & vomiting, Hypertension Primary Care Provider: Raffi Nolasco ED Provider: Jenelle Overton Home Meds and New Rx's Prescriptions: No Action nicotine 14 mg/24 hr patch 24 hour 1 patch TD DAILY PRN albuterol sulfate [ProAir HFA] 90 mcg/actuation HFA aerosol inhaler 2 puff IH Q6H PRN clonazepam 0.5 mg tablet 0.5 mg PO DAILY PRN atorvastatin 40 mg tablet 80 mg PO DAILY Patient Comments: TAKE ONE TABLET BY MOUTH EVERY EVENING carvedilol 25 mg tablet 25 mg PO BID Patient Comments: TAKE ONE TABLET BY MOUTH TWICE A DAY isosorbide mononitrate 30 mg tablet extended release 24 hr 30 mg PO DAILY Patient Comments: TAKE ONE TABLET BY MOUTH EVERY DAY lidocaine 5 % adhesive patch,medicated 1 patch topical DAILY Patient Comments: APPLY ONE PATCH TOPICALLY EVERY DAY LEAVE ON 12 HOURS AND REMOVE FOR 12 HOURS losartan 25 mg tablet 25 mg PO DAILY Patient Comments: TAKE ONE TABLET BY MOUTH EVERY DAY nicotine 21 mg/24 hr patch 24 hour 1 patch topical DAILY Patient Comments: APPLY ONE PATCH TO THE SKIN EVERY DAY buspirone 7.5 mg tablet 7.5 mg PO BID Patient Comments: TAKE ONE TABLET BY MOUTH TWICE A DAY oxcarbazepine 600 mg tablet 600 mg PO BID Patient Comments: TAKE ONE TABLET BY MOUTH TWICE A DAY furosemide 20 mg tablet 20 mg PO QAM Patient Comments: TAKE ONE TABLET BY MOUTH EVERY MORNING Spiriva Respimat 2.5 mcg/actuation mist 2 puff INHALATION ONCE Patient Comments: INHALE TWO PUFFS BY MOUTH EVERY DAY gabapentin 300 mg capsule 900 mg PO TID Patient Comments: TAKE 3 CAPSULES BY MOUTH THREE TIMES DAILY amlodipine 10 mg tablet 5 mg PO DAILY spironolactone 25 mg tablet 25 mg PO DAILY Patient Comments: TAKE ONE TABLET BY MOUTH EVERY DAY losartan 100 mg tablet 100 mg PO DAILY Patient Comments: TAKE ONE TABLET BY MOUTH EVERY EVENING Jardiance 10 mg tablet 10 mg PO DAILY Patient Comments: TAKE ONE TABLET BY MOUTH EVERY DAY Discharge Instructions Additional Instructions: Please call the [facility] hypertension clinic at [phone] first thing in the morning to schedule follow-up appointment for further management/evaluation of your blood pressure. Please follow-up with cardiology as scheduled for next week. You may leave the scopolamine patch in place for up to 3-days; this will provide antinausea relief. Stay well-hydrated, drinking plenty of fluids throughout the day. Continue taking medications as prescribed, including the Lasix according to sliding parameters. Return to emergency care if you develop new chest pains, shortness of breath, severe headaches, dizziness, or if you are very worried and need to be rechecked immediately Referrals: [facility] [Provider Group] Discharge Data Discharge Date/Time-TO BE ENTERED AT DEPARTURE: 10/30/24 18:51 HPI General Date/Time Provider Initiated Documentation: 10/30/24 12:48. HPI Narrative: 54-year-old female with complex medical history including NSTEMI, hypercarbic respiratory failure, toxicity, viral meningitis, remote alcohol and cocaine abuse, hyperlipidemia, CHF, and pulmonary hypertension. Presents with nausea and vomiting post-discharge this morning. Reports low BP at home, stable BP upon ED arrival, sent home, then returned due to vomiting. Denies headache, chest pain, SOB, new medications, fever, chills, sick contacts, diarrhea, or spoiled food consumption. Appears chronically unwell, alert, oriented, uncomfortable. No abdominal tenderness, regular cardiac rate and rhythm, moist mucous membranes, pupils equal, round, reactive to light and accommodation, no peripheral edema. Possible viral syndrome. Administering antiemetics, slow fluids, Pepcid due to CHF history. Given Decadron, Compazine, Zofran, Pepcid; improved upon reassessment. Prior CT abdomen/pelvis showed no aneurysm. Anticipated stable for discharge with fluids and p.o. challenge. BP elevated, no chest pain, SOB, or headache. Related Data Home Medications ?Medication ?Instructions ?Recorded ?Confirmed albuterol sulfate 90 mcg/actuation 2 puff inhalation Q6H PRN 06/27/19 10/30/24 aerosol inhaler (ProAir HFA) nicotine 14 mg/24 hr daily 1 patch transdermal DAILY PRN 08/03/19 10/30/24 transdermal patch clonazepam 0.5 mg tablet 0.5 mg PO DAILY PRN 04/15/22 10/30/24 gabapentin 300 mg capsule 900 mg PO TID 11/01/23 10/30/24 atorvastatin 40 mg tablet 80 mg PO DAILY 07/02/24 10/30/24 buspirone 7.5 mg tablet 7.5 mg PO BID 07/02/24 10/30/24 carvedilol 25 mg tablet 25 mg PO BID 07/02/24 10/30/24 furosemide 20 mg tablet 20 mg PO QAM 07/02/24 10/30/24 isosorbide mononitrate 30 mg 30 mg PO DAILY 07/02/24 10/30/24 tablet,extended release 24 hr lidocaine 5 % topical patch 1 patch topical DAILY 07/02/24 10/30/24 losartan 25 mg tablet 25 mg PO DAILY 07/02/24 10/30/24 nicotine 21 mg/24 hr daily 1 patch topical DAILY 07/02/24 10/30/24 transdermal patch oxcarbazepine 600 mg tablet 600 mg PO BID 07/02/24 10/30/24 tiotropium bromide 2.5 2 puff inhalation ONCE 07/02/24 10/30/24 mcg/actuation mist for inhalation (Spiriva Respimat) amlodipine 10 mg tablet 5 mg PO DAILY 10/30/24 10/30/24 empagliflozin 10 mg tablet 10 mg PO DAILY 10/30/24 10/30/24 (Jardiance) losartan 100 mg tablet 100 mg PO DAILY 10/30/24 10/30/24 spironolactone 25 mg tablet 25 mg PO DAILY 10/30/24 10/30/24 Allergies Allergy/AdvReac Type Severity Reaction Status Date / Time cefazolin sodium (From [facility]) Allergy Severe Anaphylaxsi Verified 10/30/24 12:56 s codeine Allergy Unknown unknown Verified 10/30/24 12:56 hay fever Allergy Mild Other (See Uncoded 10/30/24 12:56 Comment) General Stated Complaint: GenMedical LISA: 2 Exam Narrative Exam Narrative: General Appearance: Chronically unwell appearance. Vital signs: Elevated BP. HEENT: Pupils equal, round, reactive to light and accommodation. Moist mucous membranes. Cardiovascular: Regular heart rate and rhythm. Gastrointestinal: No abdominal tenderness. Extremities: No peripheral edema. Skin: Warm and dry, no rash. Neurological: Normal. Course Vital Signs Vital signs: Vital Signs Temperature 36.4 C L 10/30/24 12:46 Pulse 69 10/30/24 12:46 Respiratory Rate 20 10/30/24 12:46 Blood Pressure 212/120 H 10/30/24 12:46 Pulse Oximetry 98 10/30/24 12:46 Temperature 36.4 C L 10/30/24 13:00 Pulse 72 10/30/24 15:27 Pulse 77 10/30/24 15:27 Respiratory Rate 14 10/30/24 15:27 Respiratory Effort Normal 10/30/24 13:10 Respiratory Depth Normal 10/30/24 13:10 Respiratory Pattern Normal 10/30/24 13:10 Blood Pressure 185/99 H 10/30/24 15:27 Blood Pressure Mean 128 10/30/24 15:27 Pulse Oximetry 97 10/30/24 15:27 Oxygen Delivery Method Room Air 10/30/24 13:00 Oxygen Flow Rate 0 10/30/24 13:00 Pain Level 8 10/30/24 13:00 Lab/Test Results Lab/Test Results: Laboratory Tests Range/Units 10/30/24 10/30/24 13:08 14:25 WBC (4.4-10.8) 10^3/uL 8.05 RBC (3.93-5.22) 10^6/uL 4.97 Hgb (11.2-15.7) g/dL 15.1 Hct (36.0-46.0) % 43.0 MCV (80-95) fL 87 MCH (27.0-33.0) pg 30.4 MCHC (32.0-36.0) % 35.1 RDW (11.7-14.6) % 12.8 Plt Count (130-400) 10^3/uL 232 MPV (8.0-11.0) fL 9.6 Immature Gran % % 0.2 Neutrophils % % 68.9 Lymphocytes % % 24.1 Monocytes % % 4.3 Eosinophils % % 1.9 Basophils % % 0.6 Nucleated RBC % (0.0-0.3) % 0.0 Absolute Neutrophils (1.2-6.7) 10^3/uL 5.54 Absolute Lymphocytes (1.2-3.4) 10^3/uL 1.94 Absolute Monocytes (0.1-0.8) 10^3/uL 0.35 Absolute Eosinophils (0.0-0.7) 10^3/uL 0.15 Absolute Basophils (0.0-0.2) 10^3/uL 0.05 Sodium (136-145) mmol/L 138 Potassium (3.5-5.1) mmol/L 3.7 Chloride (98-107) mmol/L 99 Carbon Dioxide (21.0-32.0) mmol/L 23.8 Anion Gap (3-11) mmol/L 15.2 H BUN (7-18) mg/dL 9 Creatinine (0.55-1.02) mg/dL 0.9 Est GFR (CKD-EPI 2020) (mL/min/1.73m2) 75.50 Glucose (74-106) mg/dL 138 H Calcium (8.5-10.1) mg/dL 9.9 Total Bilirubin (0.2-1.0) mg/dL 0.7 AST (15-37) U/L 15 ALT (14-59) U/L 20 Alkaline Phosphatase (46-116) U/L 104 Troponin I (<or=51) ng/L 6 12 Total Protein (6.4-8.2) g/dL 7.9 Albumin (3.4-5.0) g/dL 4.1 Lipase (<78) U/L 33 Medical Decision Making Initial Assessment: 54-year-old female with history of non-ST elevation MT, hypercarbic respiratory failure, toxicity, viral meningitis, remote history of alcohol abuse, and cocaine abuse, hyperlipidemia, CHF, pulmonary hypertension, presents with nausea and vomiting post-discharge this morning. Blood pressure stable on arrival but elevated now. Denies headache, chest pain, SOB, fever, chills, sick contacts, new medications, diarrhea, or eating spoiled food. Chronically unwell but alert and oriented. No abdominal tenderness, regular cardiac rate and rhythm. Differential Diagnosis: - Possible viral syndrome: Administering antiemetics, slow fluids, Pepcid due to CHF history. Given Decadron, Compazine, Zofran, Pepcid; improved upon reassessment. ED Course: - Administered Decadron, Compazine, Zofran, Pepcid. - Slow fluids due to CHF history. - Reassessment: Patient improved. - Prior CT abdomen/pelvis showed no aneurysm. - Patient feeling symptomatic improved however she sits up in bed and became nauseated will place scopolamine patch and try additional p.o. feels she may benefit from admission if she continues to be nauseous and vomiting blood pressure improved low suspicion for hypertensive urgency or emergency Final Assessment: Patient improved with antiemetics and fluids. Stable for discharge with fluids and p.o. challenge. Blood pressure elevated but known to be labile. Low suspicion for hypertensive urgency/emergency. Clinical Impression: - Nausea and vomiting - Elevated BP Disposition: - Discharge: Anticipated stable for discharge with fluids and p.o. challenge. MDM Components Evaluation: - Number of Differential Diagnoses or Management Options: Possible viral syndrome. - Amount and Complexity of Data Reviewed: Prior CT abdomen/pelvis. - Risk of Complication and Morbidity or Mortality: Low suspicion for hypertensive urgency/emergency. Quality:SDOH Health Related Social Needs: No Data to Display PFSH All Active Problems (Updated 10/31/24 @ 00:03 by CLARENCE NAVA) Hypertension (Chronic) Nausea & vomiting (Acute) Hypotension (Acute) Non-ST elevation MT (NSTEMI) (Acute) Phenytoin toxicity (Acute) Trigeminal neuralgia pain (Acute) Colon cancer screening (Acute) Medical History Urinary tract infection Hypertension Anxiety disorder Urge incontinence Heart murmur, systolic Viral meningitis Liver disease Hyperlipidemia Alcohol abuse, in remission in remission for 13 years Cocaine abuse in remission in remission for 13 years History of hepatitis Hep C. pt. states she has been treated in 2004, states she did the Interferon treatment. Family history of chronic ischemic heart disease Family history of diabetes mellitus Tobacco use disorder Benign essential hypertension Onychomycosis Surgical History H/O tubal ligation Normal colonoscopy (~12/2019) Hx of section x2 Hx of cholecystectomy History of appendectomy Family History Mother Diabetes Emphysema lung Coronary artery disease Hypertension Hyperlipidemia Father Heart disease Coronary artery disease Hypertension Hyperlipidemia Sister Heart disease Coronary artery disease Diabetes Stroke Hypertension Hyperlipidemia Social History Smoking/Tobacco Use Status: Current every day Tobacco Type: cigarettes Quit status: quit date established Smoking risk assessment performed?: Yes Alcohol Intake: current Drug use: Occasionally Substance use type: marijuana Details: 13 years clean crack/cocaine Household members: none Housing: house Number of Children: 0 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
--- NOTE | 2024-10-30 16:06 | W.ED.FU ---
Follow Up Plan: Report received from GARY Raymond daytime BE[facility]. Please see her note for full HPI, ROS, physical exam, interpretation of labs. In short, Swathi is a 54-year-old female who presented to the emergency department earlier today for hypotension. She was discharged home, started feeling unwell with chills and nausea/vomiting when she got home. She received a couple doses of antiemetics, including Compazine, scopolamine patch, and steroids; she reports she is now feeling significantly better. Denies headaches, dizziness, chest pain, shortness of breath. Blood pressure has been elevated I did call [facility] cardiology for consult, spoke with Dr. Nelson who is familiar with patient's recent hospitalization at [facility] for hypertensive emergency. Reviewed patient presentation, labs, and treatment. He reports that Swathi has very labile blood pressures and it is not uncommon for them to go out of range. He was agreeable with plan to give PM meds early, but did not recommend any other medications to be added to her regimen, as she has a history of significant hypotension with medications as well. He recommends close follow-up with hypertension clinic. Recommends holding Lasix if nausea/vomiting continues. Today's history and presentation consistent with viral gastroenteritis. Workup today was reassuring, no red flags concerning for acute surgical abdomen. Reviewed discharge instructions with Swathi, including importance of follow-up with hypertension clinic and cardiology as scheduled. Reviewed symptomatic management and red flags indicating need for return to emergency care. She is agreeable with plan of care
[2024-10-30] MEDS: Scopolamine 1 MG/3 DAYS PATCH TD (16:26)
[2024-10-30] MEDS: Carvedilol 25 MG TAB PO (18:20)
[2024-10-30] MEDS: Isosorbide Mononitrate 30 MG TABCR PO (18:20)
== END 2024-10-30 18:51 | disposition home or self-care (01) ==
PROVIDERS: Physician Assistant; Emergency Provider Nurse Practitioner Family; PCP Physician Assistant
DX: I10 Essential (primary) hypertension (principal); R11.2 Nausea with vomiting, unspecified; R42 Dizziness and giddiness
CPT/HCPCS: 99284 ×2; 87428; 96374; 96375; 96376; 80053; 83690; 93005; 96361; 99283; 84484; 85025; 93010; J0780; J1100; J2405

== ENCOUNTER 2025-02-24 11:31 | Emergency (ER) | payer BC, MEDICAID, SELFPAY ==
[2025-02-24] VITALS (26 sets, daily range): BP systolic 103–169; BP diastolic 84–141; PULSE 61–129; RESP 13–31; TEMP 36.4; O2SAT 85–96
--- NOTE | 2025-02-24 11:30 | RT.EKG_ITS ---
APPROVED REPORT Exam: Resting ECG Reason for Exam: chest pain Patient Location: E HR:64 bpm ECG Measurements Heart Rate [address] 189 P 57 QRSd 114 QRS -34 QT 458 T 98 QTc 474 Conclusion Sinus arrhythmia...V-rate 51- 71, variation>10% Incomplete left bundle branch block...QRSd>110mS, terminal axis(-90,-1) No Occlusion HI
--- NOTE | 2025-02-24 12:09 | W.ED.GENAD ---
Discharge Plan Disposition Patient Disposition: Transfer-Acute Inpatient Care Specific Acute Inpt Facility: [facility] Condition: Stable Discharge Details Clinical Impression: Non-ST elevation OK (NSTEMI), Acute hypoxic respiratory failure Primary Care Provider: Raffi Nolasco ED Provider: Gopal Barton Home Meds and New Rx's Prescriptions: No Action nicotine 14 mg/24 hr patch 24 hour 1 patch TD DAILY PRN albuterol sulfate [ProAir HFA] 90 mcg/actuation HFA aerosol inhaler 2 puff IH Q6H PRN clonazepam 0.5 mg tablet 0.5 mg PO DAILY PRN atorvastatin 40 mg tablet 80 mg PO DAILY Patient Comments: TAKE ONE TABLET BY MOUTH EVERY EVENING carvedilol 25 mg tablet 25 mg PO BID Patient Comments: TAKE ONE TABLET BY MOUTH TWICE A DAY isosorbide mononitrate 30 mg tablet extended release 24 hr 30 mg PO DAILY Patient Comments: TAKE ONE TABLET BY MOUTH EVERY DAY lidocaine 5 % adhesive patch,medicated 1 patch topical DAILY Patient Comments: APPLY ONE PATCH TOPICALLY EVERY DAY LEAVE ON 12 HOURS AND REMOVE FOR 12 HOURS losartan 25 mg tablet 25 mg PO DAILY Patient Comments: TAKE ONE TABLET BY MOUTH EVERY DAY nicotine 21 mg/24 hr patch 24 hour 1 patch topical DAILY Patient Comments: APPLY ONE PATCH TO THE SKIN EVERY DAY buspirone 7.5 mg tablet 7.5 mg PO BID Patient Comments: TAKE ONE TABLET BY MOUTH TWICE A DAY furosemide 20 mg tablet 20 mg PO QAM Patient Comments: TAKE ONE TABLET BY MOUTH EVERY MORNING Spiriva Respimat 2.5 mcg/actuation mist 2 puff INHALATION ONCE Patient Comments: INHALE TWO PUFFS BY MOUTH EVERY DAY amlodipine 10 mg tablet 5 mg PO DAILY spironolactone 25 mg tablet 25 mg PO DAILY Patient Comments: TAKE ONE TABLET BY MOUTH EVERY DAY losartan 100 mg tablet 100 mg PO DAILY Patient Comments: TAKE ONE TABLET BY MOUTH EVERY EVENING Jardiance 10 mg tablet 10 mg PO DAILY Patient Comments: TAKE ONE TABLET BY MOUTH EVERY DAY aspirin 81 mg tablet,chewable 81 mg PO DAILY Patient Comments: CHEW ONE TABLET BY MOUTH EVERY DAY sertraline 50 mg tablet 50 mg PO DAILY Patient Comments: TAKE THREE TABLETS BY MOUTH EVERY MORNING HPI General Date/Time Provider Initiated Documentation: 02/24/25 11:47. HPI Narrative: 54 year-old female presents to ED today by POV/ambulating with a chief complaint of shortness of breath, chest pain with onset this morning. Quality described as diffuse chest pain, hurts to breathe- hot flashes and chills, no radiation to syncope, dizziness, endorses feeling clammy, endorses nausea. Severity is described as severe 01/07. Palliating factors include nothing specific attempted. Provoking factors include exertion and laying down. Events leading up to the incident/Associated Symptoms: patient endorses COPD/CHF history, denies history of OK. Patient not anticoagulated. Related Data Home Medications ?Medication ?Instructions ?Recorded ?Confirmed albuterol sulfate 90 mcg/actuation 2 puff inhalation Q6H PRN 06/27/19 02/24/25 aerosol inhaler (ProAir HFA) nicotine 14 mg/24 hr daily 1 patch transdermal DAILY PRN 08/03/19 02/24/25 transdermal patch clonazepam 0.5 mg tablet 0.5 mg PO DAILY PRN 04/15/22 02/24/25 atorvastatin 40 mg tablet 80 mg PO DAILY 07/02/24 02/24/25 buspirone 7.5 mg tablet 7.5 mg PO BID 07/02/24 02/24/25 carvedilol 25 mg tablet 25 mg PO BID 07/02/24 02/24/25 furosemide 20 mg tablet 20 mg PO QAM 07/02/24 02/24/25 isosorbide mononitrate 30 mg 30 mg PO DAILY 07/02/24 02/24/25 tablet,extended release 24 hr lidocaine 5 % topical patch 1 patch topical DAILY 07/02/24 02/24/25 losartan 25 mg tablet 25 mg PO DAILY 07/02/24 02/24/25 nicotine 21 mg/24 hr daily 1 patch topical DAILY 07/02/24 02/24/25 transdermal patch tiotropium bromide 2.5 2 puff inhalation ONCE 07/02/24 02/24/25 mcg/actuation mist for inhalation (Spiriva Respimat) amlodipine 10 mg tablet 5 mg PO DAILY 10/30/24 02/24/25 empagliflozin 10 mg tablet 10 mg PO DAILY 10/30/24 02/24/25 (Jardiance) losartan 100 mg tablet 100 mg PO DAILY 10/30/24 02/24/25 spironolactone 25 mg tablet 25 mg PO DAILY 10/30/24 02/24/25 aspirin 81 mg chewable tablet 81 mg PO DAILY 02/24/25 02/24/25 sertraline 50 mg tablet 50 mg PO DAILY 02/24/25 02/24/25 Allergies Allergy/AdvReac Type Severity Reaction Status Date / Time cefazolin sodium (From [facility]) Allergy Severe Anaphylaxsi Verified 02/24/25 11:45 s codeine Allergy Unknown unknown Verified 02/24/25 11:45 hay fever Allergy Mild Other (See Uncoded 02/24/25 11:45 Comment) General Stated Complaint: Chest Pain LISA: 3 Review of Systems All systems reviewed & are unremarkable except as noted in HPI and below Exam Narrative Exam Narrative: GENERAL APPEARANCE: Cachectic, non-toxic, awake and alert, atraumatic, moderate acute distress. SKIN: Warm, pink, dry, intact, without rashes/lesions/ulcerations. HEAD: Normocephalic, atraumatic, normal hair distribution for gender/age. EYES: Normal conjunctiva, no exudates on lids/lashes. ENT: Nares patent, no circumoral cyanosis, no facial swelling NECK: Supple, trachea midline, painless cervical ROM. LUNGS/CHEST: Lungs CTA bilaterally- diffusely adventitious coarse lung sounds, labored respirations, normal A/P diameter, symmetrical expansion, no chest wall deformity HEART (CV/PV): Regular rate and rhythm with murmur 1/6 systolic, no peripheral edema, no JVD. ABDOMEN: Soft, non-distended, no guarding, no tenderness, no anasarca. MSK: Normal ROM, no swelling/deformity to bilateral UEs or LEs, moving all extremities without weakness, no cyanosis, spine midline without tenderness, normal curvature. NEURO: Mental Status AAOx4 - alert to person, place, time, events No facial droop, no forehead involvement. Motor: No focal weakness - strength 5/5 in bilateral UEs and LEs, proximal and distal, symmetric. Sensory: sensation intact to light touch globally. Gait NT. PSYCH: dysthymic, cooperative, pleasant, appropriate speech Course Vital Signs Vital signs: Vital Signs Temperature 36.4 C L 02/24/25 11:35 Pulse 68 02/24/25 11:35 Respiratory Rate 24 02/24/25 11:35 Blood Pressure 155/88 H 02/24/25 11:35 Pulse Oximetry 85 L 02/24/25 11:35 Temperature 36.4 C L 02/24/25 11:35 Temperature Source Oral 02/24/25 11:35 Pulse 68 02/24/25 11:35 Respiratory Rate 24 02/24/25 11:35 Blood Pressure 155/88 H 02/24/25 11:35 Blood Pressure Position Sitting 02/24/25 11:35 Pulse Oximetry 85 L 02/24/25 11:35 Oxygen Delivery Method Room Air 02/24/25 11:35 Oxygen Flow Rate 0 02/24/25 11:35 Pain Level 7 02/24/25 11:35 Medical Decision Making This dictation utilizes [id number] dictation software and may contain unedited grammatical errors. 54 year-old female presents to ED today by POV/ambulating with a chief complaint of shortness of breath, chest pain with onset this morning. Quality described as diffuse chest pain, hurts to breathe- hot flashes and chills, no radiation to syncope, dizziness, endorses feeling clammy, endorses nausea. Severity is described as severe 8/10. Palliating factors include nothing specific attempted. Provoking factors include exertion and laying down. Events leading up to the incident/Associated Symptoms: patient endorses COPD/CHF history, denies history of OK. Patients' medical history: Hypertension, liver disease, alcohol abuse in remission, cocaine abuse in remission, history of hepatitis. Family and social history: Family history of diabetes, denies active smoking. Pertinent exam findings / vital signs include diffusely coarse adventitious lung sounds, regular rate without tachycardia, labored respirations, appears frail and much older than stated age, hypoxic to 85%, benign abdomen. Differential / pathologies of concern include NSTEMI, CHF, COPD, respiratory failure, pneumonia. Diagnostic studies of: -CBC, CMP, VBG, magnesium, serial troponins, BNP, lipase, UA, blood cultures, x-ray chest, EKG. - CBC shows a leukocytosis of 19.24 without left shift and significant elevated absolute neutrophils at 16.5 - Lactate is 2.0 - CMP is without actionable abnormality - Magnesium within normal limits - Serial troponins are rising from 61 initially to 94, 3 hours pending at time of signout - BNP is 676 - Lipase negative - UA benign - VBG shows compensated hypoxemic respiratory failure -X-ray chest shows interstitial fibrosis without focal opacity - EKG shows sinus arrhythmia with a left bundle branch block, no concerning T wave abnormalities or ST changes, consistent with priors Interventions of: -324mg ASA, 4mg morphine x2, titrating up oxygen from NC to oxy-mask, to CPAP at 6/65% - still having some intermittent hypoxia- given 40mg lasix IVP x2. -Discussed with Cardiology at [facility] Dr. Yung @ 1440- CVCC vs MICU transfer discussed, possible stress cardiomyopathy secondary to respiratory failure, but cannot ruleout infection with WBC 19- consulting MICU at [facility] for transfer, if they refuse patient will go to [facility]. -Spoke with MICU at 1529, accepts for admission, bed pending. ED Course/Assessment/Plan: 54-year-old cachectic female presents with severe chest pain onset this morning, in the setting of history of stress cardiomyopathy and heart failure with reduced ejection fraction 35% at her last echo in September 2024 per [facility] consult. It is unclear the etiology of her chest pain at this time, she could have respiratory component driving her NSTEMI versus pneumonia without obvious focal opacity in any specific lobe. She is undergoing diuresis and had pain control with 4 mg of morphine X2, trial of 0.4 SL nitroglycerin, she is intermittently hypoxic to 88% even on CPAP, she has had about 600 mL of output over the course of 4 to 5 hours here but had no significant pedal edema and is fairly cachectic at baseline. Patient needs transfer to a higher level of care, she is becoming somewhat more tachycardic at time of signout with heart rate in the 110s-120. Transport level will be medic and priority of urgent. [facility] MICU Dr. Shana Pelayo accepts at 1529. Disposition of Non-ST Elevation OK (NSTEMI), Acute Hypoxic Respiratory Failure. Patient verbalized understanding of the plan and return to ED criteria and engaged in shared decision making. Medical Records Medical records reviewed: Yes I reviewed the patient's medical records. Imaging Data Radiologic Study: Attestation: I personally reviewed and interpreted this imaging study as follows: Imaging: X-Ray Radiologist's impression: Exam: XR Chest Exam date and time: 02/24/2025 12:44 PM Age: 54 years old Clinical indication: Shortness of breath TECHNIQUE: Imaging protocol: Radiologic exam of the chest. Views: 1 view. COMPARISON: CR XR PORTABLE CHEST AP 08/02/2024 09:38 FINDINGS: Tubes, catheters and devices: EKG wires overlie the chest. Lungs: Low lung volumes. Coarse increased interstitial markings involving the upper and lower lung jacques similar to prior study consistent with chronic interstitial fibrosis. Bilateral peribronchial thickening. Pleural spaces: Unremarkable. No pleural effusion. No pneumothorax. Heart/Mediastinum: Unremarkable. No cardiomegaly. Bones/joints: Unremarkable for patient's age. IMPRESSION: Chronic interstitial fibrosis similar to prior study. Dictated and Authenticated by: Brooklynn Garnica MD. Lab Data Lab results reviewed: Yes I reviewed the patient's lab results. Labs: 02/24/25 14:28 Blood Blood Culture - Pending 02/24/25 14:28 Blood Blood Culture - Pending Laboratory Tests Range/Units 02/24/25 02/24/25 02/24/25 12:05 12:48 13:06 WBC (4.4-10.8) 10^3/uL 19.24 H RBC (3.93-5.22) 10^6/uL 5.83 H Hgb (11.2-15.7) g/dL 17.4 H Hct (36.0-46.0) % 50.9 H MCV (80-95) fL 87 MCH (27.0-33.0) pg 29.8 MCHC (32.0-36.0) % 34.2 RDW (11.7-14.6) % 12.7 Plt Count (130-400) 10^3/uL 314 MPV (8.0-11.0) fL 10.2 Immature Gran % % 0.5 Neutrophils % % 86.1 Lymphocytes % % 10.8 Monocytes % % 2.2 Eosinophils % % 0.1 Basophils % % 0.3 Nucleated RBC % (0.0-0.3) % 0.0 Absolute Neutrophils (1.2-6.7) 10^3/uL 16.57 H Absolute Lymphocytes (1.2-3.4) 10^3/uL 2.08 Absolute Monocytes (0.1-0.8) 10^3/uL 0.42 Absolute Eosinophils (0.0-0.7) 10^3/uL 0.02 Absolute Basophils (0.0-0.2) 10^3/uL 0.06 VBG pH (7.31-7.41) 7.40 VBG pCO2 (41-51) mmHg 39 L VBG pO2 mmHg 53 VBG HCO3 (23-28) mmol/L 24 VBG Total CO2 (24-29) mmol/L 20 L VBG O2 Saturation % 88 VBG Base Excess (-2-3) mmol/L -1 VBG Lactate (<or=2.0) mmol/L 2.0 Sodium (136-145) mmol/L 142 Potassium (3.5-5.1) mmol/L 4.9 Chloride (98-107) mmol/L 103 Carbon Dioxide (21.0-32.0) mmol/L 25.5 Anion Gap (3-11) mmol/L 13.5 H BUN (7-18) mg/dL 17 Creatinine (0.55-1.02) mg/dL 0.8 Est GFR (CKD-EPI 2020) (mL/min/1.73m2) 86.96 Glucose (74-106) mg/dL 168 H Calcium (8.5-10.1) mg/dL 9.8 Magnesium (1.8-2.4) mg/dL 2.1 Total Bilirubin (0.2-1.0) mg/dL 1.2 H AST (15-37) U/L 21 ALT (14-59) U/L 28 Alkaline Phosphatase (46-116) U/L 106 Troponin I (<or=51) ng/L 61 H* 94 H* NT-Pro-B Natriuret Pep (<300) pg/mL 676 H Total Protein (6.4-8.2) g/dL 7.8 Albumin (3.4-5.0) g/dL 4.4 Lipase (<78) U/L 24 Urine Color (Yellow) Yellow Urine Clarity (Clear) Clear Urine pH (5-8) 6.5 Ur Specific Bryan (1.005-1.025) 1.010 Urine Protein (Neg-Trace) mg/dL Negative Urine Ketones (Negative) mg/dL Negative Urine Blood (Negative) Negative Urine Nitrite (Negative) Negative Urine Bilirubin (Negative) Negative Urine Urobilinogen (Up to 0.2) mg/dL 0.2 Ur Leukocyte Esterase (Negative) Negative Urine RBC (0-2) HPF 0-2 Urine WBC (0-5) HPF 0-2 Ur Epithelial Cells (Negative) HPF Rare Urine Crystals (Negative) HPF Negative Urine Bacteria (Negative) HPF Few Urine Casts (Negative) LPF Negative Urine Mucus (Negative) Negative Ur Culture Indicated? No Urine Glucose (Negative) mg/dL >=1000 H PFSH All Active Problems (Updated 02/24/25 @ 15:32 by GARY Omalley) Acute hypoxic respiratory failure (Acute) Non-ST elevation OK (NSTEMI) (Acute) Non-ST elevation OK (NSTEMI) (Acute) Phenytoin toxicity (Acute) Trigeminal neuralgia pain (Acute) Colon cancer screening (Acute) Medical History Urinary tract infection Hypertension Anxiety disorder Urge incontinence Heart murmur, systolic Viral meningitis Liver disease Hyperlipidemia Alcohol abuse, in remission in remission for 13 years Cocaine abuse in remission in remission for 13 years History of hepatitis Hep C. pt. states she has been treated in 2004, states she did the Interferon treatment. Family history of chronic ischemic heart disease Family history of diabetes mellitus Tobacco use disorder Benign essential hypertension Onychomycosis Surgical History H/O tubal ligation Normal colonoscopy (~12/2019) Hx of section x2 Hx of cholecystectomy History of appendectomy Family History Mother Diabetes Emphysema lung Coronary artery disease Hypertension Hyperlipidemia Father Heart disease Coronary artery disease Hypertension Hyperlipidemia Sister Heart disease Coronary artery disease Diabetes Stroke Hypertension Hyperlipidemia Social History Smoking/Tobacco Use Status: Current every day Tobacco Type: cigarettes Years smoked: 40 Quit status: quit date established Smoking risk assessment performed?: Yes Alcohol Intake: current Drug use: Occasionally Substance use type: marijuana Details: 13 years clean crack/cocaine Household members: none Housing: house Number of Children: 0 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
[2025-02-24] MEDS: Albuterol/Ipratropium 3 ML UPD VIAL UPD (12:22)
[2025-02-24] MEDS: Normal Saline 1,000 ML 75 ML IV (12:22)
[2025-02-24] MEDS: Furosemide 40 MG/4 ML VIAL IVP ×2 (12:22→15:19)
[2025-02-24 12:23] LABS: Abs Immature Grans 0.10 10^3/uL (0.0-0.06); HCT 50.9 % (36.0-46.0); HGB 17.4 g/dL (11.2-15.7); Immature Grans % 0.5 %; MCH 29.8 pg (27.0-33.0); MCHC 34.2 % (32.0-36.0); MCV 87 fL (80-95); MPV 10.2 fL (8.0-11.0); Platelet Count 314 10^3/uL (130-400); RBC 5.83 10^6/uL (3.93-5.22); RDW 12.7 % (11.7-14.6); RDW-SD 40.1 fL; WBC 19.24 10^3/uL (4.4-10.8)
[2025-02-24 12:28] LABS: BE (Venous) -1 mmol/L (-2-3); HCO3 (Venous) 24 mmol/L (23-28); O2 Sat (Venous) 88 %; TCO2 (Venous) 20 mmol/L (24-29); pCO2 (Venous) 39 mmHg (41-51); pO2 (Venous) 53 mmHg
[2025-02-24] MEDS: Ondansetron 4 MG/2 ML VIAL IVP (12:33)
--- NOTE | 2025-02-24 12:49 | DI.RAD_ITS ---
Exam(s) XR PORTABLE CHEST AP EXAM: XR PORTABLE CHEST AP CLINICAL HISTORY: SOB in CHF TECHNIQUE: 2D digital imaging was performed. COMPARISON: CR,XR XR CHEST 2V PA LATERAL from 07/02/2024 CR,XR XR PORTABLE CHEST AP from 09/30/2024 US POCUS EXAM from 09/30/2024 FINDINGS: LUNGS: Significantly increased diffuse interstitial markings, which appear worsened compared with the previous exam. No significant interstitial findings were seen on the July 2024 examination. The findings are suspicious for pulmonary edema rather than fibrosis. No pleural abnormality seen. HEART: Normal size. AORTA: Mildly tortuous. BONES: Unremarkable for age. Soft tissues: Unremarkable. IMPRESSION: Findings suspicious for pulmonary edema. The preliminary [facility] report was reviewed. DATA REPOSITORY: RADIATION DOSE DELIVERED:
[2025-02-24 12:59] LABS: Lipase 24 U/L (<78); Magnesium 2.1 mg/dL (1.8-2.4); NT-proBNP 676 pg/mL (<300)
[2025-02-24 13:08] LABS: Troponin I 61 ng/L (<or=51)
[2025-02-24 13:19] LABS: ALT 28 U/L (14-59); AST 21 U/L (15-37); Albumin 4.4 g/dL (3.4-5.0); Alkaline Phosphatase 106 U/L (46-116); Anion Gap 13.5 mmol/L (3-11); BUN 17 mg/dL (7-18); Bilirubin, Total 1.2 mg/dL (0.2-1.0); CO2 25.5 mmol/L (21.0-32.0); Calcium 9.8 mg/dL (8.5-10.1); Chloride 103 mmol/L (98-107); Estimated GFR 86.96 (mL/min/1.73m2); Glucose 168 mg/dL (74-106); Potassium 4.9 mmol/L (3.5-5.1); Sodium 142 mmol/L (136-145); Total Protein 7.8 g/dL (6.4-8.2)
[2025-02-24] MEDS: MORPHine 4 MG/ML SYR IVP ×2 (13:24→14:10)
[2025-02-24 13:25] LABS: Glucose >=1000 mg/dL (Negative)
[2025-02-24 13:34] LABS: C & S Indicated? No; RBC 0-2 HPF (0-2); WBC 0-2 HPF (0-5)
[2025-02-24 13:37] LABS: Troponin I 94 ng/L (<or=51)
[2025-02-24] MEDS: Aspirin 81 MG CHEW 324 MG CH (13:51)
--- NOTE | 2025-02-24 14:18 | DI.[facility]_ITS ---
PROCEDURE INFORMATION: Exam: XR Chest Exam date and time: 02/24/2025 12:44 PM Age: 54 years old Clinical indication: Shortness of breath TECHNIQUE: Imaging protocol: Radiologic exam of the chest. Views: 1 view. COMPARISON: CR XR PORTABLE CHEST AP 08/02/2024 09:38 FINDINGS: Tubes, catheters and devices: EKG wires overlie the chest. Lungs: Low lung volumes. Coarse increased interstitial markings involving the upper and lower lung jacques similar to prior study consistent with chronic interstitial fibrosis. Bilateral peribronchial thickening. Pleural spaces: Unremarkable. No pleural effusion. No pneumothorax. Heart/Mediastinum: Unremarkable. No cardiomegaly. Bones/joints: Unremarkable for patient's age. IMPRESSION: Chronic interstitial fibrosis similar to prior study. Dictated and Authenticated by: Brooklynn Garnica MD. Orderin Mick Herron MD
[2025-02-24] MEDS: nitroGLYcerin 0.4 MG TAB SL (14:51)
--- NOTE | 2025-02-24 15:30 | RT.EKG_ITS ---
APPROVED REPORT Exam: Resting ECG Reason for Exam: QTc check Patient Location: E HR:94 bpm ECG Measurements Heart Rate 94 AXIS MT 183 P 68 QRSd 127 QRS -51 QT 421 T 102 QTc 528 Conclusion Sinus rhythm, rate 94 LBBB Prolonged QTc at 528ms Compared to priors, rate and QTc has increased No STEMI
[2025-02-24 15:47] LABS: Troponin I 253 ng/L (<or=51)
--- NOTE | 2025-02-24 16:10 | ED.PROG_ITS ---
Date of service: 02/24/25 Time of Service: 16:30 Medical Decision Making I was made aware of this patient peripherally by the outgoing provider, who reports that this patient was accepted to [facility] ICU for hypoxic respiratory failure likely due to COPD, NSTEMI presumed due to demand ischemia in the setting of her infectious illness, likely pneumonia. At the time that the previous provider left, transport was thought to be occurring within the next few minutes. 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 I took over care of this patient after reviewing the prior provider's notes, and performed an independent examination of the patient. She is on BiPAP, tolerating this intervention well, reports to me that she is having ongoing chest pain. I did review her laboratory studies, she has a leukocytosis to 19, a VBG with no evidence of acidosis or severe hypercarbia, a reassuring metabolic panel, but an increasing troponin, 61-94, and elevated to 253 at the 3-hour nii. The patient's lung sounds are slightly diminished but without significant wheezing on my evaluation. Chest wall is nontender to palpation, no peripheral edema or unilateral calf swelling or tenderness is appreciated. She is awake, alert, and verbal. Given her recurrence of her chest pain and the elevation in her Trop, I made the decision to proceed with heparinization, placed her on the ACS drip, and initiated a nitroglycerin drip for angina. She received Plavix 600 mg. Her repeat EKG did demonstrate a prolonged QTc, but no evidence of active ischemic changes compared to her most recent prior. For this reason I held the azithromycin. I reviewed the patient's chart, which does show an allergy to cefazolin. She has received meropenem in the past but I am unable to determine if she has ever tolerated other cephalosporins, and ultimately provided her with an intravenous dose of doxycycline. [facility] was contacted to fly this patient to [facility] given her elevating troponins concerning for active NSTEMI requiring urgent transfer to definitive care. The patient did remain hemodynamically appropriate while under my care, and left without incident. Amirah Higuera MD Discharge Plan Disposition Patient Disposition: Transfer-Acute Inpatient Care Specific Acute In Facility: [facility] Condition: Stable Discharge Details Clinical Impression: Non-ST elevation [place] (NSTEMI), Acute hypoxic respiratory failure Primary Care Provider: Raffi Nolasco ED Provider: Amirah Higuera Home Meds and New Rx's Prescriptions: No Action nicotine 14 mg/24 hr patch 24 hour 1 patch TD DAILY PRN albuterol sulfate [ProAir HFA] 90 mcg/actuation HFA aerosol inhaler 2 puff IH Q6H PRN clonazepam 0.5 mg tablet 0.5 mg PO DAILY PRN atorvastatin 40 mg tablet 80 mg PO DAILY Patient Comments: TAKE ONE TABLET BY MOUTH EVERY EVENING carvedilol 25 mg tablet 25 mg PO BID Patient Comments: TAKE ONE TABLET BY MOUTH TWICE A DAY isosorbide mononitrate 30 mg tablet extended release 24 hr 30 mg PO DAILY Patient Comments: TAKE ONE TABLET BY MOUTH EVERY DAY lidocaine 5 % adhesive patch,medicated 1 patch topical DAILY Patient Comments: APPLY ONE PATCH TOPICALLY EVERY DAY LEAVE ON 12 HOURS AND REMOVE FOR 12 HOURS losartan 25 mg tablet 25 mg PO DAILY Patient Comments: TAKE ONE TABLET BY MOUTH EVERY DAY nicotine 21 mg/24 hr patch 24 hour 1 patch topical DAILY Patient Comments: APPLY ONE PATCH TO THE SKIN EVERY DAY buspirone 7.5 mg tablet 7.5 mg PO BID Patient Comments: TAKE ONE TABLET BY MOUTH TWICE A DAY furosemide 20 mg tablet 20 mg PO QAM Patient Comments: TAKE ONE TABLET BY MOUTH EVERY MORNING Spiriva Respimat 2.5 mcg/actuation mist 2 puff INHALATION ONCE Patient Comments: INHALE TWO PUFFS BY MOUTH EVERY DAY amlodipine 10 mg tablet 5 mg PO DAILY spironolactone 25 mg tablet 25 mg PO DAILY Patient Comments: TAKE ONE TABLET BY MOUTH EVERY DAY losartan 100 mg tablet 100 mg PO DAILY Patient Comments: TAKE ONE TABLET BY MOUTH EVERY EVENING Jardiance 10 mg tablet 10 mg PO DAILY Patient Comments: TAKE ONE TABLET BY MOUTH EVERY DAY aspirin 81 mg tablet,chewable 81 mg PO DAILY Patient Comments: CHEW ONE TABLET BY MOUTH EVERY DAY sertraline 50 mg tablet 50 mg PO DAILY Patient Comments: TAKE THREE TABLETS BY MOUTH EVERY MORNING Discharge Data Discharge Date/Time-TO BE ENTERED AT DEPARTURE: 02/24/25 17:25
[2025-02-24] MEDS: Heparin in 0.45% NaCl 25,000 UNIT/250 ML BAG 7.5 UNIT IVINF (16:32)
[2025-02-24] MEDS: DOXYCYCLINE 100 MG in Normal Saline 100 ML IVPB (16:33)
[2025-02-24] MEDS: nitroGLYcerin in D5W 50 MG/250 ML BTL IV (16:53)
[2025-02-24] MEDS: Clopidogrel 300 MG TAB (17:10)
== END 2025-02-24 17:25 | disposition short-term general hospital (02) ==
PROVIDERS: Physician Assistant; Emergency Provider Emergency Medicine; PCP Physician Assistant
DX: I21.4 Non-ST elevation (NSTEMI) myocardial infarction (principal); J96.91 Respiratory failure, unspecified with hypoxia; R06.02 Shortness of breath
CPT/HCPCS: 99285 ×2; 94640; 96375; 96376; 00123; 80053; 82805; 83690; 87040; 93005; 94669; 96365; 96368; 71045; 81003; 81015; 83605; 83735; 83880; 84484; 85025; 93010; J1644; J1938; J2270; J2305; J2405; J7620

== ENCOUNTER 2025-03-13 13:02 | Outpatient (REF) | payer BC, SELFPAY ==
[2025-03-13 15:30] LABS: HCT 39.8 % (36.0-46.0); HGB 13.9 g/dL (11.2-15.7); MCH 30.1 pg (27.0-33.0); MCHC 34.9 % (32.0-36.0); MCV 86 fL (80-95); MPV 10.1 fL (8.0-11.0); Platelet Count 323 10^3/uL (130-400); RBC 4.62 10^6/uL (3.93-5.22); RDW 12.9 % (11.7-14.6); RDW-SD 40.0 fL; WBC 9.75 10^3/uL (4.4-10.8)
[2025-03-13 15:52] LABS: Anion Gap 11.5 mmol/L (3-11); BUN 12 mg/dL (7-18); CO2 24.5 mmol/L (21.0-32.0); Calcium 8.9 mg/dL (8.5-10.1); Chloride 103 mmol/L (98-107); Estimated GFR 102.07 (mL/min/1.73m2); Glucose 141 mg/dL (74-106); NT-proBNP 1355 pg/mL (<300); Potassium 4.2 mmol/L (3.5-5.1); Sodium 139 mmol/L (136-145)
== END 2025-03-13 13:03 | disposition home or self-care (01) ==
LOC: NCHCN 13:02
PROVIDERS: PCP Physician Assistant; Visit Provider Physician Assistant
DX: I50.9 Heart failure, unspecified (principal)
CPT/HCPCS: 80048; 85027; 83880

== ENCOUNTER 2025-04-03 07:53 | Outpatient (RCR) | payer BC, SELFPAY ==
--- NOTE | 2025-04-03 07:45 | RT.EKG_ITS ---
APPROVED REPORT Exam: Resting ECG Reason for Exam: CR Intake Appointment - Baseline EKG Patient Location: O HR:61 bpm ECG Measurements Heart Rate 61 AXIS AZ 187 P 60 QRSd 80 QRS 37 QT 446 T 95 QTc 450 Conclusion Sinus rhythm...normal P axis, V-rate 50- 99 Low voltage, precordial leads...precordial leads <1.0mV Nonspecific T abnrm, anterolateral leads...T <-0.10mV, I aVL V2-V6 Minimal ST elevation, inferior leads...ST >0.06mV, II III aVF
== END 2025-04-29 23:59 | disposition home or self-care (01) ==
LOC: CR 07:53
PROVIDERS: PCP Physician Assistant; Visit Provider Internal Medicine Cardiovascular Disease
DX: I51.81 Takotsubo syndrome (principal); Z95.5 Presence of coronary angioplasty implant and graft; Z51.89 Encounter for other specified aftercare
CPT/HCPCS: S9472

== ENCOUNTER 2025-04-25 09:00 | Outpatient (RCR) | payer BC, SELFPAY | END 2025-04-29 23:59 | disposition home or self-care (01) | LOC: CR 09:00 | PROVIDERS: PCP Physician Assistant; Visit Provider Internal Medicine Cardiovascular Disease | DX: I51.81 Takotsubo syndrome (principal); Z95.5 Presence of coronary angioplasty implant and graft; Z51.89 Encounter for other specified aftercare | CPT/HCPCS: S9472 ==

== ENCOUNTER → 2025-05-09 00:06 | Outpatient (CLI) | payer BC, SELFPAY ==
--- NOTE | 2025-05-09 07:30 | DI.US_ITS ---
APPROVED REPORT EXAM: Comprehensive 2D, Doppler, and color-flow Echocardiogram Patient Location: Out-Patient Staffing And Scheduling Coordinator: Inessa Coronel RDCS (AE) Indications: Heart failure with reduced Ejection Fraction Other Information Study Quality: Adequate Conclusion Normal left ventricular wall thickness and chamber size. Ejection fraction is 58%. Wall motion is normal Normal right ventricular size and function Both atria are normal in size There is no structural or hemodynamically significant valvular disease Estimated right ventricular systolic pressure is normal at 19 mmHg Ascending aorta measures 4 cm Wall motion Left Ventricle The left ventricle is normal size. The left ventricular systolic function is normal. The left ventricular ejection fraction is within the normal range. There is normal left ventricular wall thickness. There is normal LV segmental wall motion. There is no ventricular septal defect visualized. LVEF is 58%. Right Ventricle The right ventricle is normal size. The right ventricular systolic function is normal. Atria The left atrium size is normal. The right atrium size is normal. The interatrial septum is intact with no evidence for an atrial septal defect. Aortic Valve The aortic valve is normal in structure. Aortic valve is trileaflet. There is no aortic valvular stenosis. No aortic regurgitation is present. Mitral Valve The mitral valve is normal in structure. No evidence of mitral valve stenosis. Trace mitral regurgitation. Tricuspid Valve The tricuspid valve is normal in structure. There is no tricuspid valve stenosis. Trace tricuspid regurgitation. The RVSP is 19.4mmHg. Pulmonic Valve The pulmonary valve is normal in structure. There is no pulmonic valvular stenosis. There is no pulmonic valvular regurgitation. Great Vessels Aortic root is mildly dilated. The ascending aorta is moderately dilated. Aortic arch is normal in caliber. IVC is normal in size and collapses >50% with inspiration. Pericardium There is no pericardial effusion. 2D Dimensions IVSD d PLAX 1.00 cm F: 0.6-1.0 Ao Root d 3.41 cm F: 2.7 - 3.3 LVPW d PLAX 1.00 cm F: 0.6 - 1.0 Ao Asc Diam d 4.07 cm F: 2.3 - 3.1 LVID d PLAX 4.10 cm F: 3.8 - 5.2 LVDs 2.85 cm F: 2.2 - 3.5 LV EF Teichholz 58.5 % FS 30.55 % LV EDV (Teich) 74.3 mL LV ESV (Teich) 30.8 mL M-Mode TAPSE 1.46 cm (M/F) >1.7 Auto EF LV EDV A4C 75.0 mL LV EDV A2C 95.4 mL LV EDV BP 85.3 mL LV ESV A4C 34.0 mL LV ESV A2C 43.1 mL LV ESV BP 38.3 mL LVEF(%) A4C 54.7 % LVEF(%) A2C 54.8 % LVEF(%) BP 55.1 % LV SV A4C 41.0 ml LV SV A2C 52.3 ml LV SV BP 47.0 ml LV CO A4C 2.6 L/min LV CO A2C 3.4 L/min LV CO BP 3.0 L/min HR A4C 63.05 BPM HR A2C 64.87 BPM LV EDV Index (BP) LA Volume LA Length A4C 4.9 cm LA Length A2C 4.5 cm LA Area A4C s 14.52 cm2 LA Area A2C s 12.88 cm2 LA Vol A4C A-L 36.27 mL LA Vol A2C A-L 31.18 mL LA Vol Biplane A-L 35.2 mL LA Vol/BSA A4C A-L LA Vol/BSA A2C A-L LA Vol/BSA BP A-L 20.8 mL/m2 LA Vol A4C MOD 35.2 mL LA Vol A2C MOD 29.4 mL LA Vol BP MOD 33.5 mL RA Volume RA Area A4C 9.5 cm2 RA ESV A4C (A-L) 21.0mL RA Vol/BSA A4C A-L RA Length A4C 3.6 cm RA ESV A4C (MOD) 20.3mL LV Diastology MV E' medial 0.054 (>0.07 m/s) MV E Vmax 0.83 (0.4-1.3 m/s) MV E/E' MED 15.31 (<14) MV A Vmax 0.65 (0.4-1.3 m/s) MV E' lateral 0.094 (>0.1 m/s) E/A Ratio 1.3 MV E/E' LAT 8.84 (<14) MV E' Average 0.074 m/s MV E/E'(average) 11.21 Aortic Valve AoV Vmax 1.14 m/s LVOT Vmax 0.94 m/s AoV Peak Grad 5.2 mmHg LVOT Peak Grad 3.5 mmHg AoV Area (Vmax) 2.65 cm2 LVOT VTI 0.208 m AoV VTI 0.281 m LVOT Mean Grad 1.9 mmHg AoV Mean Aleksandr. 0.76 m/s LVOT SV 67.10 mL AoV Mean Grad 2.7 mmHg LVOT Diam s 2.00 cm AoV Area (VTI) 2.39 cm2 AV Regurg Peak Gr. 5.23 mmHg Velocity Ratio 0.82 Mitral Valve MV DT 176 (160-240 msec) MV Vmax TIPS 0.75 m/s MV Mean Grad 1.0 (<2mmHg) MV VTI 0.194 m Pulmonary Valve PV Vmax 0.74 (0.5-1.5 m/s) RVOT Vmax 0.69 m/s PV Peak Grad 2.2 mmHg RVOT Peak Gr. 1.9 mmHg PV Mean Aleksandr 0.56 m/s RVOT VTI 0.176 m PV Mean Grad 1.4 mmHg RVOT Mean Gr. 1.1 mmHg Tricuspid Valve RA Pressure 3.00 mmHg TR Vmax 2.02 m/s TV S' 0.10 m/s TR Peak Grad 16.3 mmHg RVSP (TR) 19.4 mmHg
== END ==
LOC: DI 00:06
PROVIDERS: PCP Physician Assistant; Visit Provider Student in an Organized Health Care Education/Training Program
DX: I50.20 Unspecified systolic (congestive) heart failure (principal)
CPT/HCPCS: 93306

== ENCOUNTER 2025-05-21 09:00 | Outpatient (RCR) | payer BC, SELFPAY | END 2025-05-30 23:59 | disposition home or self-care (01) | LOC: CR 09:00 | PROVIDERS: PCP Physician Assistant; Visit Provider Internal Medicine Cardiovascular Disease | DX: I42.9 Cardiomyopathy, unspecified (principal); Z95.2 Presence of prosthetic heart valve; Z51.89 Encounter for other specified aftercare | CPT/HCPCS: S9472 ==